=== PATIENT | female | born 1985 | race Caucasian/White ===

== ENCOUNTER 2016-10-29 01:00 | Emergency (ER) | payer OTHER ==
[2016-10-29] MEDS ORDERED: CLEOCIN 150 MG CAPSULE PO ONE (01:16)
[2016-10-29] MEDS ORDERED: Tylenol #3 Tablet PO ONE (01:16)
--- NOTE | 2016-10-29 01:24 | ERPHSYRPT ---
- History of Present Illness Time Seen by Provider: 10/29/16 01:16 Source: patient Exam Limitations: clinical condition Physician History: PATIENT COMPLAINS OF LEFT UPPER TOOTHACHE FOR 2 DAYS. DENIES FEVER, DIFFICULTY SWALLOWING OR BREATHING Timing/Duration: gradual onset Severity: moderate ENT Location: dental Prearrival Treatment: no prearrival treatment Modifying Factors: Improves With: nothing Allergies/Adverse Reactions: cefaclor [From Ceclor] Allergy (Verified 10/29/16 01:17) erythromycin base [Erythromycin Base] Allergy (Verified 10/29/16 01:17) Penicillins Allergy (Verified 10/29/16 01:17) Home Medications: Lisinopril 10 mg [Zestril 10 MG] 10 mg PO DAILY 08/07/13 [History] Insulin Glargine,Hum.rec.anlog [Basaglar Kwikpen U-100] 60 unit SQ DAILY [History] Insulin Glulisine [Apidra] 38 unit SQ TID 10/29/16 [History] Hx Tetanus, Diphtheria Vaccination/Date Given: No Hx Influenza Vaccination/Date Given: No Hx Pneumococcal Vaccination/Date Given: No - Review of Systems Constitutional: No Fever, No Chills Eyes: No Symptoms Ears, Nose, & Throat: No Symptoms, Loose Teeth Respiratory: No Symptoms, No Cough, No Dyspnea Cardiac: No Symptoms, No Chest Pain, No Edema, No Syncope Abdominal/Gastrointestinal: No Abdominal Pain, No Nausea, No Vomiting, No Diarrhea Genitourinary Symptoms: No Dysuria Musculoskeletal: No Back Pain, No Neck Pain Skin: No Rash Neurological: No Dizziness, No Focal Weakness, No Sensory Changes Psychological: No Symptoms Endocrine: No Symptoms All Other Systems: Reviewed and Negative - Past Medical History Pertinent Past Medical History: Yes Cardiac History: Hypertension Endocrine Medical History: Diabetes Type I Musculoskeletal History: No Pertinent History GI Medical History: No Pertinent History History: No Pertinent History Psycho-Social History: No Pertinent History Female Reproductive Disorders: No Pertinent History - Past Surgical History Past Surgical History: No - Social History Smoking Status: Never smoker Exposure to second hand smoke: Yes Drug Use: none - Female History Hx Now: No - Nursing Vital Signs Nursing Vital Signs: Initial Vital Signs Temperature 98.0 F Temperature Source Oral Pulse Rate 115 Respiratory Rate 18 Blood Pressure [Right Arm] 154/79 Pain Intensity 8 - Physical Exam General Appearance: no apparent distress Eye Exam: bilateral eye: normal inspection, PERRL Ear Exam: bilateral ear: auricle normal, canal normal, TM normal Nasal Exam: normal inspection Throat Exam: dental tenderness (LEFT UPPER 2ND MOLAR WITH CARIES) Neck Exam: normal inspection, non-tender Cardiovascular/Respiratory Exam: chest non-tender, normal breath sounds Neurologic Exam: alert, oriented x 3 SpO2: 96 Oxygen Delivery: Room Air Ordered Tests: Medication Summary Discontinued Medications Generic Name Dose Route Start Last Admin Trade Name Beverley PRN Reason Stop Dose Admin Clindamycin HCl 300 mg 10/29/16 01:16 Cleocin 150 Mg Capsule PO 10/29/16 01:17 STAT ONE - Progress Progress Note: 10/29/16 01:20 PATIENT GIVEN CLINDAMYCIN 300MG ORALLY, SENT HOME TYLENOL #3, 2 TABLETS HOME Counseled pt/family regarding: diagnosis, need for follow-up - Departure Time of Disposition: 01:35 Departure Disposition: Home Clinical Impression: DENTAL CARIES Condition: Stable Critical Care Time: No Additional Instructions: ANTIBIOTIC CLINDAMYCIN 300MG EVERY 8 HOURS FOR 10 DAYS. MOTRIN 600MG EVERY 6 HOURS FOR MILD TO MODERATE PAIN. TYLENOL#3 EVERY 4 HOURS FOR SEVERE PAIN. CONSULT A DENTIST FOR FOLLOWUP TOMORROW. Prescriptions: Codeine Phosphate/APAP #3 [Tylenol #3 Tablet] 1 tab PO Q4HPRN PRN #12 tablet PRN Reason: Pain Ibuprofen 600 mg PO Q6HPRN PRN #20 tablet PRN Reason: Pain Clindamycin HCl 300 mg PO TID #30 capsule
[2016-10-29] MEDS ORDERED: CLEOCIN 150 MG CAPSULE ONE (01:25)
[2016-10-29] MEDS ORDERED: Tylenol #3 Tablet ONE (01:25)
[2016-10-29 01:44] VITALS: BP 160/86; PULSE 110; O2SAT 94
== END 2016-10-29 01:43 | disposition home or self-care (01) ==
LOC: ED 01:00
DX: K02.9 Dental caries, unspecified (principal)
CPT/HCPCS: 99283; A9270-GY

== ENCOUNTER 2017-08-18 03:03 | Emergency (ER) | payer OTHER, SELFPAY ==
[2017-08-18 03:16] VITALS: BP 187/104; PULSE 104; O2SAT 97
[2017-08-18] MEDS ORDERED: KEFLEX 500 MG PO ONE (03:27)
[2017-08-18] MEDS ORDERED: NORCO 5/325 MG PO ONE ×2 (03:27→03:28)
--- NOTE | 2017-08-18 03:27 | ERPHSYRPT ---
- History of Present Illness Time Seen by Provider: 08/18/17 03:19 Source: patient Exam Limitations: no limitations Patient Subjective Stated Complaint: toothache x2-3 days; pain in left lower back; also c/o n/v this pm d/t pain Triage Nursing Assessment: pt a&o x3; skin p, w, & d; ambulated to room per self ; no other distress at this time. Physician History: FOR THE PAST 3 DAYS PT HAS HAD A LEFT LOWER TOOTHACHE, LEFT EARACHE AND LEFT SIDED HEADACHE; TONIGHT CHILLS AND VOMITING X2 WITHOUT BLOOD. Allergies/Adverse Reactions: clindamycin Allergy (Mild, Verified 08/18/17 03:27) erythromycin base [Erythromycin Base] Allergy (Verified 08/18/17 03:16) Penicillins Allergy (Verified 08/18/17 03:16) Home Medications: Lisinopril 10 mg [Zestril 10 MG] 20 mg PO DAILY 08/07/13 [History] Insulin Glargine,Hum.rec.anlog [Basaglar Kwikpen U-100] 60 unit SQ DAILY [History] Insulin Glulisine [Apidra] 38 unit SQ TID 10/29/16 [History] Hx Tetanus, Diphtheria Vaccination/Date Given: No Hx Influenza Vaccination/Date Given: No Hx Pneumococcal Vaccination/Date Given: No Immunizations Up to Date: No - Review of Systems Constitutional: Chills Ears, Nose, & Throat: Ear Pain, Mouth Pain Abdominal/Gastrointestinal: Vomiting Neurological: Headache All Other Systems: Reviewed and Negative - Past Medical History Pertinent Past Medical History: Yes Cardiac History: Hypertension Endocrine Medical History: Diabetes Type I Musculoskeletal History: No Pertinent History GI Medical History: No Pertinent History History: No Pertinent History Psycho-Social History: No Pertinent History Female Reproductive Disorders: No Pertinent History - Past Surgical History Past Surgical History: No - Social History Smoking Status: Never smoker Exposure to second hand smoke: Yes Drug Use: none Patient Lives Alone: No - Female History Hx Last Menstrual Period: currently Hx Now: No - Nursing Vital Signs Nursing Vital Signs: Initial Vital Signs Temperature 98.4 F 08/18/17 03:11 Pulse Rate 104 H 08/18/17 03:11 Respiratory Rate 16 08/18/17 03:11 Blood Pressure 187/104 08/18/17 03:11 O2 Sat by Pulse Oximetry 97 08/18/17 03:11 Pain Scale Pain Intensity 8 - Physical Exam General Appearance: alert Eye Exam: PERRL/EOMI Ears, Nose, Throat Exam: pharynx normal, moist mucous membranes, other (CERUMEN OCCLUSION OF RIGHT EAR; A CAPPED LEFT MANDIBULAR MOLAR HAS SURROUNDING ERYTHEMATOUS, MILDLY EDEMATOUS AND TENDER GUM.) Neck Exam: normal inspection Respiratory Exam: lungs clear Cardiovascular Exam: normal heart sounds Gastrointestinal/Abdomen Exam: soft, normal bowel sounds Back Exam: normal range of motion Extremity Exam: normal inspection, No pedal edema Neurologic Exam: alert, cooperative Skin Exam: warm, dry SpO2 Interpretation: normal SpO2: 97 Oxygen Delivery: Room Air - Course Nursing assessment & vital signs reviewed: Yes Ordered Tests: Medication Summary Generic Name Dose Route Start Last Admin Trade Name Freq PRN Reason Stop Dose Admin Hydrocodone Bitart/Acetaminophen 2 tab 08/18/17 03:28 [place] 5/325 Mg PO 08/18/17 03:29 SENT HOME W/ PATIENT ONE Discontinued Medications Generic Name Dose Route Start Last Admin Trade Name Freq PRN Reason Stop Dose Admin Hydrocodone Bitart/Acetaminophen 2 tab 08/18/17 03:27 [place] 5/325 Mg PO 08/18/17 03:28 STAT ONE Cephalexin HCl 500 mg 08/18/17 03:27 Keflex 500 Mg PO 08/18/17 03:28 STAT ONE - Departure Time of Disposition: 03:34 Departure Disposition: Home Clinical Impression: TOOTH ABSCESS, VOMITING Condition: Stable Critical Care Time: No Referrals: LEI LONGO [Primary Care Provider] - Instructions: Tooth Abscess (DC), Nausea and Vomiting, Adult (DC) Additional Instructions: FOLLOW UP WITH PRIVATE DOCTOR TOMORROW. FOLLOW UP WITH DENTIST TOMORROW. Prescriptions: Promethazine HCl 25 mg [Phenergan 25 mg] 25 mg PO Q4H PRN PRN #14 tablet PRN Reason: Nausea/Vomiting Naproxen [Naprosyn] 500 mg PO [id number] PRN #20 tablet PRN Reason: Pain Cephalexin Monohydrate [Keflex] 500 mg PO TID #30 capsule
[2017-08-18] MEDS ORDERED: KEFLEX 500 MG ONE (03:30)
[2017-08-18] MEDS ORDERED: NORCO 5/325 MG ONE (03:31)
== END 2017-08-18 03:48 | disposition home or self-care (01) ==
LOC: ED 03:03
DX: K04.7 Periapical abscess without sinus (principal); K08.89 Other specified disorders of teeth and supporting structures; E10.9 Type 1 diabetes mellitus without complications; H61.21 Impacted cerumen, right ear; Z79.4 Long term (current) use of insulin; Z79.899 Other long term (current) drug therapy; R11.10 Vomiting, unspecified
CPT/HCPCS: 99282; 99283; A9270-GY

== ENCOUNTER 2017-10-11 05:19 | Emergency (ER) | payer OTHER ==
[2017-10-11] MEDS ORDERED: Sodium Chloride 0.9% 1000 ML 1,000 ML IV STA ×2 (06:23→09:44)
[2017-10-11] MEDS ORDERED: Zofran 4 MG/2 ML VIAL IV ONE (06:23)
[2017-10-11] MEDS ORDERED: TRANDATE 20 MG/5 ML SYRINGE IV ONE ×2 (06:26→06:34)
[2017-10-11 06:31] LABS: Hematocrit 36.9 % (35-47); Hemoglobin 11.8 gm/dl (12.0-16.0); Mean Cell Volume 80.2 fl (78-100); Mean Platelet Volume 9.2 fl (6-9.5); Platelet Count 253 K/mm3 (150-450); Red Cell Distribution Width 15.5 % (11.5-14.0); White Blood Count 10.8 K/mm3 (4.0-10.5)
[2017-10-11] MEDS ORDERED: Sodium Chloride 0.9% 1000 ML 1,000 ML ONE ×2 (06:34→09:47)
[2017-10-11] MEDS ORDERED: Zofran 4 MG/2 ML VIAL ONE (06:34)
[2017-10-11 06:36] LABS: Mean Corpuscular Hemoglobin 25.6 pg (26-32)
[2017-10-11 06:44] LABS: ALBUMIN 4.1 g/dL (3.5-5.0); ALKALINE PHOSPHATASE 95 U/L (38-126); AMYLASE 57 U/L (30-110); ANION GAP 13.6 MEQ/L (5-15); BLOOD UREA NITROGEN 15 mg/dL (7-17); CHLORIDE 98 mmol/L (98-107); Calcium 9.5 mg/dL (8.4-10.2); Carbon Dioxide 28 mmol/L (22-30); Creatinine 1 0.54 mg/dL (0.52-1.04); Glucose 274 mg/dL (74-106); LIPASE 71 U/L (23-300); Potassium 3.8 mmol/L (3.5-5.1); SGOT/AST 25 U/L (14-36); SGPT/ALT 44 U/L (0-35); SODIUM 136 mmol/L (137-145); Total Protein 7.3 g/dL (6.3-8.2)
[2017-10-11 07:23] LABS: Appearance CLOUDY (CLEAR); Glucose 500 mg/dL (NEGATIVE); Ketones LARGE (NEGATIVE); Leukocyte Esterase 1+ (NEGATIVE); Nitrite NEGATIVE (NEGATIVE); Protein,Urine Dip 30 (Negative)
[2017-10-11 07:24] LABS: Bilirubin NEGATIVE (NEGATIVE); Blood 250 Ery/ul (0-5); Urobilinogen NORMAL mg/dL (0-1)
--- NOTE | 2017-10-11 07:29 | ERPHSYRPT ---
- History of Present Illness Exam Limitations: clinical condition Patient Subjective Stated Complaint: pt states she has been having left side abdominal pain, n/v, and severe menstrual cramping amd bleeding x2 days. Triage Nursing Assessment: pt a& x3; skin p, w, & d; ambulated to room per self ; no other distress noted; family at bedside. Timing/Duration: day(s) Activities at Onset: none Quality: cramping Abdominal Pain Onset Location: LLQ Pain Radiation: no radiation Severity of Pain-Max: moderate Severity of Pain-Current: moderate Modifying Factors: Improves With: vomiting Associated Symptoms: nausea, vomiting Previous symptoms: same symptoms as today Hx Tetanus, Diphtheria Vaccination/Date Given: No Hx Influenza Vaccination/Date Given: No Hx Pneumococcal Vaccination/Date Given: No Immunizations Up to Date: No <PETER WICK - Last Filed: 10/11/17 07:31> <FRANCK GIRON - Last Filed: 10/11/17 11:44> - History of Present Illness Time Seen by Provider: 10/11/17 05:50 Physician History: PATIENT WITH A HISTORY OF TYPE 2 DIABETES, HYPERTENSION COMPLAINS OF FREQUENT EPISODES OF EMESIS X 20 OVER 2 DAYS. HAS ASSOCIATED DIARRHEA AND LEFT SIDED ABDOMINAL PAIN. DENIES FEVER, OR URINARY SYMPTOMS. (PETER WICK) Allergies/Adverse Reactions: clindamycin Allergy (Mild, Verified 10/11/17 05:36) Blisters erythromycin base [Erythromycin Base] Allergy (Verified 10/11/17 05:36) Blisters Penicillins Allergy (Verified 10/11/17 05:36) Hives Home Medications: Lisinopril 10 mg [Zestril 10 MG] 20 mg PO DAILY 08/07/13 [History] Insulin Glargine,Hum.rec.anlog [Basaglar Kwikpen U-100] 60 unit SQ DAILY [History] Insulin Glulisine [Apidra] 38 unit SQ TID 10/29/16 [History] Levonorgestrel-Ethin Estradiol [Vienva-28 Tablet] 1 tab PO DAILY 10/11/17 [ History] - Review of Systems Constitutional: No Fever, No Chills Eyes: No Symptoms Ears, Nose, & Throat: No Symptoms Respiratory: No Cough, No Dyspnea Cardiac: No Symptoms, No Chest Pain, No Edema, No Syncope Abdominal/Gastrointestinal: Abdominal Pain, Nausea, Vomiting, No Diarrhea Genitourinary Symptoms: No Symptoms, No Dysuria Musculoskeletal: No Symptoms, No Back Pain, No Neck Pain Skin: No Rash Neurological: No Dizziness, No Focal Weakness, No Sensory Changes Psychological: No Symptoms Endocrine: No Symptoms All Other Systems: Reviewed and Negative <PETER WICK Filed: 10/11/17 07:31> - Past Medical History Pertinent Past Medical History: Yes Cardiac History: Hypertension Endocrine Medical History: Diabetes Type I Musculoskeletal History: No Pertinent History GI Medical History: No Pertinent History History: No Pertinent History Psycho-Social History: No Pertinent History Female Reproductive Disorders: No Pertinent History - Past Surgical History Past Surgical History: No - Social History Smoking Status: Never smoker Exposure to second hand smoke: Yes Drug Use: none Patient Lives Alone: No - Female History Hx Last Menstrual Period: currently Hx Now: Yes <PETER WICK Filed: 10/11/17 07:31> - Physical Exam General Appearance: no apparent distress, alert Eye Exam: PERRL/EOMI, eyes nml inspection Ears, Nose, Throat Exam: normal ENT inspection, pharynx normal, moist mucous membranes Neck Exam: normal inspection, non-tender, supple, full range of motion Respiratory Exam: normal breath sounds, lungs clear, No respiratory distress Cardiovascular Exam: regular rate/rhythm, normal heart sounds, tachycardia Gastrointestinal/Abdomen Exam: soft, normal bowel sounds, tenderness (LEFT LOWER QUAD TENDERNESS), No mass Back Exam: normal inspection, normal range of motion, No CVA tenderness, No vertebral tenderness Extremity Exam: normal inspection, normal range of motion, pelvis stable Neurologic Exam: alert, oriented x 3, cooperative, normal mood/affect, nml cerebellar function, sensation nml, No motor deficits Skin Exam: normal color, warm, dry SpO2 Interpretation: normal SpO2: 98 Oxygen Delivery: Room Air <PETER WICK Filed: 10/11/17 07:31> - Nursing Vital Signs Nursing Vital Signs: Initial Vital Signs Temperature 98 F 10/11/17 05:28 Pulse Rate 112 H 10/11/17 05:28 Respiratory Rate 18 10/11/17 05:28 Blood Pressure 182/90 10/11/17 05:28 O2 Sat by Pulse Oximetry 97 10/11/17 05:28 Pain Scale Pain Intensity 0 - Course Nursing assessment & vital signs reviewed: Yes <FRANCK GIRON - Last Filed: 10/11/17 11:44> Ordered Tests: Active Orders 24 hr Category Date Time Status Stripper Machine Operator STAT Care 10/11/17 06:28 Active Clean Catch Urine Specimen STAT Care 10/11/17 06:23 Active IV Insertion STAT Care 10/11/17 06:23 Active ABDOMEN AND PELVIS W CONTRAST [CT] Stat Exams 10/11/17 07:48 Taken AMYLASE Stat Lab 10/11/17 06:20 Completed CBC W DIFF Stat Lab 10/11/17 06:20 Completed CMP Stat Lab 10/11/17 06:20 Completed CULTURE,URINE Stat Lab 10/11/17 05:45 Received HCG QUALITATIVE,SERUM Stat Lab 10/11/17 07:46 Completed LIPASE Stat Lab 10/11/17 06:20 Completed Manual Differential NC Stat Lab 10/11/17 06:20 Completed UA W/ MICROSCOPIC Stat Lab 10/11/17 05:45 Completed Transfer Order Routine Transfer 10/11/17 Ordered Medication Summary Discontinued Medications Generic Name Dose Route Start Last Admin Trade Name Freq PRN Reason Stop Dose Admin Sodium Chloride 1,000 mls @ 999 mls/hr 10/11/17 06:23 10/11/17 06:37 Sodium Chloride 0.9% 1000 Ml IV 10/11/17 07:23 999 mls/hr .Q1H1M STA Administration Sodium Chloride Confirm 10/11/17 06:34 Sodium Chloride 0.9% 1000 Ml Administered 10/11/17 06:35 Dose 1,000 mls @ ud .ROUTE .STK-MED ONE Sodium Chloride 1,000 mls @ 999 mls/hr 10/11/17 09:44 10/11/17 09:48 Sodium Chloride 0.9% 1000 Ml IV 10/11/17 10:44 999 mls/hr .Q1H1M STA Administration Sodium Chloride Confirm 10/11/17 09:47 Sodium Chloride 0.9% 1000 Ml Administered 10/11/17 09:48 Dose 1,000 mls @ ud .ROUTE .STK-MED ONE Labetalol HCl 20 mg 10/11/17 06:26 10/11/17 06:37 Trandate 20 Mg/5 Ml Syringe IV 10/11/17 06:27 20 mg STAT ONE Administration Labetalol HCl Confirm 10/11/17 06:34 Trandate 20 Mg/5 Ml Syringe Administered 10/11/17 06:35 Dose 20 mg IV .STK-MED ONE Morphine Sulfate 4 mg 10/11/17 09:44 10/11/17 09:48 Morphine Sulfate 4 Mg Inj IV 10/11/17 09:45 4 mg STAT ONE Administration Morphine Sulfate Confirm 10/11/17 09:47 Morphine Sulfate 4 Mg Inj Administered 10/11/17 09:48 Dose 4 mg .ROUTE .STK-MED ONE Ondansetron HCl 4 mg 10/11/17 06:23 10/11/17 06:37 Zofran 4 Mg/2 Ml Vial IV 10/11/17 06:24 4 mg STAT ONE Administration Ondansetron HCl Confirm 10/11/17 06:34 Zofran 4 Mg/2 Ml Vial Administered 10/11/17 06:35 Dose 4 mg .ROUTE .STK-MED ONE Lab/Rad Data: Laboratory Result Diagrams 10/11/17 06:20 10/11/17 06:20 Laboratory Results 10/11/17 10/11/17 10/11/17 Range/Units 07:46 06:20 06:20 WBC 10.8 H (4.0-10.5) K/mm3 RBC 4.60 (4.1-5.4) M/mm3 Hgb 11.8 L (12.0-16.0) gm/dl Hct 36.9 (35-47) % MCV 80.2 (78-100) fl MCH 25.6 L (26-32) pg MCHC 32.0 (32-36) g/dl RDW 15.5 H (11.5-14.0) % Plt Count 253 (150-450) K/mm3 MPV 9.2 (6-9.5) fl Absolute Granulocytes 9.80 H (1.4-6.9) Segmented Neutrophils 93 H (36.0-66.0) % Lymphocytes (Manual) 5 L (24-44) % Monocytes (Manual) 2 (0.0-12.0) % Hypochromia 1+ Platelet Estimate NORMAL (NORMAL) RBC Morphology ABNORMAL Poikilocytosis 1+ Anisocytosis 1+ Sodium 136 L (137-145) mmol/L Potassium 3.8 (3.5-5.1) mmol/L Chloride 98 (98-107) mmol/L Carbon Dioxide 28 (22-30) mmol/L Anion Gap 13.6 (5-15) MEQ/L BUN 15 (7-17) mg/dL Creatinine 0.54 (0.52-1.04) mg/dL Estimated GFR > 60.0 ML/MIN Glucose 274 H (74-106) mg/dL Calcium 9.5 (8.4-10.2) mg/dL Total Bilirubin 0.80 (0.2-1.3) mg/dL AST 25 (14-36) U/L ALT 44 H (0-35) U/L Alkaline Phosphatase 95 (38-126) U/L Serum Total Protein 7.3 (6.3-8.2) g/dL Albumin 4.1 (3.5-5.0) g/dL Amylase 57 (30-110) U/L Lipase 71 (23-300) U/L Serum , Qual NEGATIVE (Negative) Ur Collection Type Urine Color (YELLOW) Urine Appearance (CLEAR) Urine pH (5-6) Ur Specific [place] (1.005-1.025) Urine Protein (Negative) Urine Ketones (NEGATIVE) Urine Blood (0-5) Eddie/ul Urine Nitrite (NEGATIVE) Urine Bilirubin (NEGATIVE) Urine Urobilinogen (0-1) mg/dL Ur Leukocyte Esterase (NEGATIVE) Urine Microscopic RBC (0-2) /HPF Urine Microscopic WBC (0-5) /HPF Ur Epithelial Cells (FEW) /HPF Urine Bacteria (NEGATIVE) /HPF Urine Culture Reflexed (NO) Urine Glucose (NEGATIVE) mg/dL Specimen Received 10/11/17 Range/Units 05:45 WBC (4.0-10.5) K/mm3 RBC (4.1-5.4) M/mm3 Hgb (12.0-16.0) gm/dl Hct (35-47) % MCV (78-100) fl MCH (26-32) pg MCHC (32-36) g/dl RDW (11.5-14.0) % Plt Count (150-450) K/mm3 MPV (6-9.5) fl Absolute Granulocytes (1.4-6.9) Segmented Neutrophils (36.0-66.0) % Lymphocytes (Manual) (24-44) % Monocytes (Manual) (0.0-12.0) % Hypochromia Platelet Estimate (NORMAL) RBC Morphology Poikilocytosis Anisocytosis Sodium (137-145) mmol/L Potassium (3.5-5.1) mmol/L Chloride (98-107) mmol/L Carbon Dioxide (22-30) mmol/L Anion Gap (5-15) MEQ/L BUN (7-17) mg/dL Creatinine (0.52-1.04) mg/dL Estimated GFR ML/MIN Glucose (74-106) mg/dL Calcium (8.4-10.2) mg/dL Total Bilirubin (0.2-1.3) mg/dL AST (14-36) U/L ALT (0-35) U/L Alkaline Phosphatase (38-126) U/L Serum Total Protein (6.3-8.2) g/dL Albumin (3.5-5.0) g/dL Amylase (30-110) U/L Lipase (23-300) U/L Serum , Qual (Negative) Ur Collection Type CCMS Urine Color RED (YELLOW) Urine Appearance CLOUDY (CLEAR) Urine pH 6.0 (5-6) Ur Specific [place] 1.020 (1.005-1.025) Urine Protein 30 (Negative) Urine Ketones LARGE (NEGATIVE) Urine Blood 250 (0-5) Eddie/ul Urine Nitrite NEGATIVE (NEGATIVE) Urine Bilirubin NEGATIVE (NEGATIVE) Urine Urobilinogen NORMAL (0-1) mg/dL Ur Leukocyte Esterase 1+ (NEGATIVE) Urine Microscopic RBC >100 (0-2) /HPF Urine Microscopic WBC 15-25 (0-5) /HPF Ur Epithelial Cells RARE (FEW) /HPF Urine Bacteria MODERATE (NEGATIVE) /HPF Urine Culture Reflexed YES (NO) Urine Glucose 500 (NEGATIVE) mg/dL Specimen Received 0545 10/11/17 <PETER WICK - Last Filed: 10/11/17 07:31> - Progress Progress: improved <FRANCK GIRON - Last Filed: 10/11/17 11:44> - Progress Progress Note: 10/11/17 07:28 IV NORMAL SALINE 500ML/HR, ZOFRAN 4MG, LABETOLOL 20MG IV (PETER WICK) 10/11/17 09:32 This is a 31-year-old white female with history of high blood pressure, diabetes initially seen by Dr. Wick with complaint of left lower quadrant abdominal pain and vomiting over 20 times over 2 days she had associated diarrhea as well no fever or urinary symptoms. Patient was noted to have a markedly elevated blood pressure patient was given 1 L of normal saline and labetalol as well as anti-emetics by Dr. Wick. Patient states she still has some abdominal pain lower abdomen it is noted that the patient is chronically on tramadol at home which she receives from Dr. Mathias. She also is on Zofran which she states she just got and she says she has this at home. Past medical history includes diabetes, high blood pressure. Past surgical history patient denies. Physical examination well-developed obese white female she does not appear to be in acute distress Head is atraumatic normocephalic. Eyes PERRLA EOMI fundi are unremarkable. Ears TMs berg intact bilaterally. Nose clear. Throat clear. Neck supple. Lungs clear. Heart regular rate and rhythm without murmur. Abdomen minimal tenderness left lower quadrant positive bowel sounds negative masses negative rebound. Extremities full range of motion pulses equal and symmetrical 2 over 4 Labs patient's white count is 10.8 hemoglobin 11.8 hematocrit 36.9 platelets 253. Chemistry sodium 136 potassium 3.8 chloride 98 bicarbonate 28 BUN 15 creatinine 0.54 glucose 274. HCG is negative. Urine 15-25 white cells per high-power field negative nitrites positive ketones greater than 100 red cells per high-power field (patient states she is on her period CT of the abdomen and pelvis with contrast Findings suggestive for jejunitis which could be due to an infectious or inflammatory or etiology. There is also a right lower lobe pulmonary nodule consider follow-up CT of the chest in 6-12 months per flexion or society guidelines. Impression 1 left lower quadrant abdominal pain 2. Vomiting. 3 jejunitis infection versus inflammatory etiology. Plan Will go ahead and give patient morphine 4 mg IV. I have reviewed the patient's inspect report she is on tramadol 50 mg which is prescribed by Dr. Mathias she received 60 tablets on October 01, 2017. she had initially told me she was not on any pain medication at home, but once I reminded her of inspect report, she told me that she thought this for leg pain. I have told the patient that if she is to get any further narcotic analgesia as she needs to get these from her family doctor. Patient is already on Zofran Will have patient continue Zofran. Will give patient another liter of normal saline she appears to be markedly improved from a arrival. Patient will be advised to follow-up with Dr. Mathias. She is return for acute distress or for severe symptoms. 10/11/17 09:43 (FRANCK GIRON) <PETER WICK - Last Filed: 10/11/17 07:31> - Departure Time of Disposition: 11:39 Departure Disposition: Home Critical Care Time: No <FRANCK GIRON - Last Filed: 10/11/17 11:44> - Departure Clinical Impression: Abdominal pain, left lower quadrant, Jejunitis Nausea and vomiting Qualifiers: Vomiting type: unspecified Vomiting Intractability: non-intractable Qualified Code(s): R11.2 - Nausea with vomiting, unspecified UTI (urinary tract infection) Qualifiers: Urinary tract infection type: site unspecified Hematuria presence: with hematuria Qualified Code(s): N39.0 - Urinary tract infection, site not specified Hypertension Qualifiers: Hypertension type: unspecified Qualified Code(s): I10 - Essential (primary) hypertension Condition: Fair Referrals: LEI MATHIAS [Primary Care Provider] - Additional Instructions: Return home. Plenty of fluids, clear fluids only 24-48 hours if abdominal pain. Macrobid one orally twice a day for 10 days. Zofran and tramadol as prescribed by your family doctor. Follow-up with your family doctor You were noted to have a right lower lobe pulmonary nodule on CT scan follow-up CT was recommended in 6-12 months by radiologist follow-up with your family doctor concerning this. You were also noted to have findings suspicious for Jejunits which could be either infectious or inflammatory in etiology. Follow-up with your family doctor concerning this. Return for acute distress or for severe symptoms. Prescriptions: Nitrofurantoin Macro 100 mg [Macrobid 100MG Capsule] 100 mg PO BID #20 capsule
[2017-10-11 07:32] LABS: Bacteria MODERATE /HPF (NEGATIVE); Epithelial Cells RARE /HPF (FEW); RBC >100 /HPF (0-2); WBC 15-25 /HPF (0-5)
[2017-10-11 08:39] VITALS: O2SAT 95
[2017-10-11 08:48] LABS: ANISOCYTOSIS 1+; Hypochromia 1+; Lymphocytes 5 % (24-44); Monocyte 2 % (0.0-12.0); Neutrophils 93 % (36.0-66.0); Platelet Estimate NORMAL (NORMAL); Poikilocytosis 1+; Total Cells Counted 100
[2017-10-11] MEDS ORDERED: MORPHINE SULFATE 4 MG INJ IV ONE (09:44)
[2017-10-11] MEDS ORDERED: MORPHINE SULFATE 4 MG INJ ONE (09:47)
[2017-10-11 11:12] VITALS: BP 106/48; PULSE 87
--- NOTE | 2017-10-11 20:05 | XRAY ---
Indication: Left lower quadrant pain, nausea, and vomiting 2 days. Multiple contiguous axial images obtained through the abdomen and pelvis using 80 cc of Isovue-370 contrast only. Comparison: None 1.6 cm indeterminate noncalcified nodule seen in the right posterior gutter. No infiltrate or effusion. Heart is not enlarged. Noncontrasted stomach and bowel loops appear nonobstructed. A few mild fluid distended small bowel loops in the left mid abdomen with mild wall thickening favoring enteritis. Normal appendix. No free fluid/air. Remaining liver, gallbladder, pancreas, spleen, adrenal glands, kidneys, ureters, bladder, uterus, and aorta appear unremarkable. No pathologic retroperitoneal lymphadenopathy. Osseous structures intact. Impression: 1. Mild fluid distended small bowel loops with wall thickening favoring enteritis. 2. Indeterminate 1.6 cm right lung base noncalcified pulmonary nodule. Comparison studies would be of benefit if performed elsewhere. If not, recommend CT chest to establish baseline with follow-up per Fleischner guidelines. Comment: Preliminary interpretation was made by [facility]. No discrepancy. CTDI 23.68
== END 2017-10-11 11:48 | disposition home or self-care (01) ==
LOC: ED 05:19
DX: R10.32 Left lower quadrant pain (principal); R11.2 Nausea with vomiting, unspecified; K52.9 Noninfective gastroenteritis and colitis, unspecified; N39.0 Urinary tract infection, site not specified; I10 Essential (primary) hypertension; Z79.899 Other long term (current) drug therapy; E10.9 Type 1 diabetes mellitus without complications; Z79.4 Long term (current) use of insulin
CPT/HCPCS: 36000; 36415; 74177; 80053; 81000; 82150; 83690; 84703; 85025; 87086; 93041; 96360; 96374; 96375; 99284; J2270; J2405

== ENCOUNTER 2018-01-10 07:07 | Emergency (ER) | payer OTHER ==
[2018-01-10] MEDS ORDERED: MORPHINE SULFATE 4 MG INJ IV ONE (07:32)
[2018-01-10] MEDS ORDERED: Zofran 4 MG/2 ML VIAL IV ONE (07:32)
[2018-01-10] MEDS ORDERED: Sodium Chloride 0.9% 1000 ML 1,000 ML IV STA ×2 (07:32→07:59)
[2018-01-10] MEDS ORDERED: Sodium Chloride 0.9% 1000 ML 1,000 ML ONE ×2 (07:39→09:08)
[2018-01-10] MEDS ORDERED: MORPHINE SULFATE 4 MG INJ ONE (07:39)
[2018-01-10] MEDS ORDERED: Zofran 4 MG/2 ML VIAL ONE (07:39)
--- NOTE | 2018-01-10 07:40 | ERPHSYRPT ---
- History of Present Illness Time Seen by Provider: 01/10/18 07:29 Historian: patient Exam Limitations: no limitations Patient Subjective Stated Complaint: vomiting and abd pain for 10 days now, was seen at [facility] for this and had us and ct scan, pt states no eating or drinking well, pain to left side and epigastric area. vomited x4 today Triage Nursing Assessment: pt walked in,skin w/d/p. resp easy skin w/d/p. abd soft with bs, tender to palpate Physician History: This is a 32-year-old white female with history of diabetes type 1 high blood pressure. She arrives with complaint of left lower quadrant abdominal pain vomiting symptoms for 10 days. She states she was seen at [facility] 2 last week. She states she had an ultrasound also had CT of the abdomen. She states she has not been able to see see her family doctor she states that she called the family doctor's office and she was unable to take an appointment. She has no other complaints. Patient is chronically on tramadol patient filled #60 50 mg tablets on January 07, 2018. Past medical history includes diabetes type 1, high blood pressure. Past surgical history negative Social history patient denies tobacco alcohol or illicit drug use. Timing/Duration: day(s) (10 days) Activities at Onset: none Quality: cramping Abdominal Pain Onset Location: LLQ Pain Radiation: no radiation Severity of Pain-Current: moderate Modifying Factors: Improves With: analgesics (patient is on tramadol), vomiting. Worsens With: antacids, breathing, coughing, defecating, eating, exercise, lying down, movement, palpation, rest, urinating, position Associated Symptoms: nausea, vomiting, No back, No chest pain, No diaphoresis, No diarrhea, No fever/chills, No fatigue, No headache, No heartburn, No loss of appetite, No neck pain, No rash, No shortness of breath, No syncope Previous symptoms: same symptoms as today Allergies/Adverse Reactions: clindamycin Allergy (Mild, Verified 01/10/18 07:15) Blisters erythromycin base [Erythromycin Base] Allergy (Verified 01/10/18 07:15) Blisters Penicillins Allergy (Verified 01/10/18 07:15) Hives Home Medications: Lisinopril 10 mg [Zestril 10 MG] 20 mg PO DAILY 08/07/13 [History] Insulin Glargine,Hum.rec.anlog [Basaglar Kwikpen U-100] 60 unit SQ DAILY [History] Insulin Glulisine [Apidra] 38 unit SQ TID 10/29/16 [History] Tramadol HCl 50 mg [Ultram 50 mg] 50 mg BID 01/10/18 [History] Hx Tetanus, Diphtheria Vaccination/Date Given: Yes Hx Influenza Vaccination/Date Given: No Hx Pneumococcal Vaccination/Date Given: No Immunizations Up to Date: Yes - Review of Systems Constitutional: No Fever, No Chills Eyes: No Symptoms Ears, Nose, & Throat: No Symptoms Respiratory: No Cough, No Dyspnea Cardiac: No Chest Pain, No Edema, No Syncope Abdominal/Gastrointestinal: Abdominal Pain, Nausea, Vomiting, No Diarrhea, No Constipation, No Hematemesis, No Hematochezia, No Melena, No Dysphagia, No Appetite Changes Genitourinary Symptoms: Dysuria, No Frequency, No Hematuria, No Hesitancy, No Incontinence, No Urgency, No Urinary Retention, No Flank Pain, No Menorrhagia, No , No Vaginal Bleeding, No Vaginal Discharge, No Vaginal Itching Musculoskeletal: No Back Pain, No Neck Pain Skin: No Rash Neurological: No Dizziness, No Focal Weakness, No Sensory Changes Psychological: No Symptoms Endocrine: No Symptoms All Other Systems: Reviewed and Negative - Past Medical History Pertinent Past Medical History: Yes Neurological History: No Pertinent History ENT History: No Pertinent History Cardiac History: Hypertension Endocrine Medical History: Diabetes Type I Musculoskeletal History: No Pertinent History GI Medical History: No Pertinent History History: No Pertinent History Psycho-Social History: No Pertinent History Female Reproductive Disorders: No Pertinent History - Past Surgical History Past Surgical History: No - Social History Smoking Status: Never smoker Exposure to second hand smoke: Yes Drug Use: none Patient Lives Alone: No - Female History Hx Last Menstrual Period: october Hx Now: No - Nursing Vital Signs Nursing Vital Signs: Initial Vital Signs Pulse Rate 96 H 01/10/18 07:15 Respiratory Rate 16 01/10/18 07:15 Blood Pressure 160/90 01/10/18 07:15 O2 Sat by Pulse Oximetry 98 01/10/18 07:15 Pain Scale Pain Intensity 3 - Physical Exam General Appearance: no apparent distress, obese Eye Exam: PERRL/EOMI, eyes nml inspection Ears, Nose, Throat Exam: normal ENT inspection, pharynx normal, moist mucous membranes Neck Exam: normal inspection, non-tender, supple, full range of motion Respiratory Exam: normal breath sounds, lungs clear, No respiratory distress Cardiovascular Exam: regular rate/rhythm, normal heart sounds, normal peripheral pulses, capillary refill <2 sec, No tachycardia, No bradycardia Gastrointestinal/Abdomen Exam: soft, tenderness (llq tenderness), No mass Back Exam: normal inspection, normal range of motion, No CVA tenderness, No vertebral tenderness Extremity Exam: normal inspection, normal range of motion, pelvis stable Neurologic Exam: alert, oriented x 3, cooperative, gaming associate II-XII nml as tested, normal mood/affect, nml cerebellar function, sensation nml, No motor deficits Skin Exam: normal color, warm, dry SpO2 Interpretation: normal (98%) SpO2: 98 Oxygen Delivery: Room Air - Course Nursing assessment & vital signs reviewed: Yes Ordered Tests: Active Orders 24 hr Category Date Time Status Accucheck STAT Care 01/10/18 10:25 Active IV Insertion STAT Care 01/10/18 07:32 Active AMYLASE Stat Lab 01/10/18 07:45 Completed CBC W DIFF Stat Lab 01/10/18 07:45 Completed CMP Stat Lab 01/10/18 07:45 Completed HCG QUALITATIVE,SERUM Stat Lab 01/10/18 07:45 Completed LIPASE Stat Lab 01/10/18 07:45 Completed UA W/ MICROSCOPIC Stat Lab 01/10/18 07:45 Completed Medication Summary Discontinued Medications Generic Name Dose Route Start Last Admin Trade Name Beverley PRN Reason Stop Dose Admin Sodium Chloride 1,000 mls @ 999 mls/hr 01/10/18 07:32 01/10/18 07:42 Sodium Chloride 0.9% 1000 Ml IV 01/10/18 08:32 999 mls/hr .Q1H1M STA Administration Sodium Chloride Confirm 01/10/18 07:39 Sodium Chloride 0.9% 1000 Ml Administered 01/10/18 07:40 Dose 1,000 mls @ ud .ROUTE .STK-MED ONE Sodium Chloride 1,000 mls @ 999 mls/hr 01/10/18 07:59 01/10/18 09:10 Sodium Chloride 0.9% 1000 Ml IV 01/10/18 08:59 999 mls/hr .Q1H1M STA Administration Sodium Chloride Confirm 01/10/18 09:08 Sodium Chloride 0.9% 1000 Ml Administered 01/10/18 09:09 Dose 1,000 mls @ ud .ROUTE .STK-MED ONE Morphine Sulfate 4 mg 01/10/18 07:32 01/10/18 07:42 Morphine Sulfate 4 Mg Inj IV 01/10/18 07:33 4 mg STAT ONE Administration Morphine Sulfate Confirm 01/10/18 07:39 Morphine Sulfate 4 Mg Inj Administered 01/10/18 07:40 Dose 4 mg .ROUTE .STK-MED ONE Ondansetron HCl 4 mg 01/10/18 07:32 01/10/18 07:42 Zofran 4 Mg/2 Ml Vial IV 01/10/18 07:33 4 mg STAT ONE Administration Ondansetron HCl Confirm 01/10/18 07:39 Zofran 4 Mg/2 Ml Vial Administered 01/10/18 07:40 Dose 4 mg .ROUTE .STK-MED ONE Lab/Rad Data: Laboratory Result Diagrams 01/10/18 07:45 01/10/18 07:45 Laboratory Results 01/10/18 01/10/18 01/10/18 Range/Units 07:45 07:45 07:45 WBC (4.0-10.5) K/mm3 RBC (4.1-5.4) M/mm3 Hgb (12.0-16.0) gm/dl Hct (35-47) % MCV (78-100) fl MCH (26-32) pg MCHC (32-36) g/dl RDW (11.5-14.0) % Plt Count (150-450) K/mm3 MPV (6-9.5) fl Gran % (36.0-66.0) % Eos # (Auto) (0-0.5) Absolute Lymphs (auto) (1.0-4.6) Absolute Monos (auto) (0.0-1.3) Lymphocytes % (24.0-44.0) % Monocytes % (0.0-12.0) % Eosinophils % (0.00-5.0) % Basophils % (0.0-0.4) % Absolute Granulocytes (1.4-6.9) Basophils # (0-0.4) Sodium 140 (137-145) mmol/L Potassium 4.1 (3.5-5.1) mmol/L Chloride 101 (98-107) mmol/L Carbon Dioxide 28 (22-30) mmol/L Anion Gap 15.0 (5-15) MEQ/L BUN 7 (7-17) mg/dL Creatinine 0.58 (0.52-1.04) mg/dL Estimated GFR > 60.0 ML/MIN Glucose 237 H (74-106) mg/dL Calcium 9.5 (8.4-10.2) mg/dL Total Bilirubin 0.70 (0.2-1.3) mg/dL AST 24 (14-36) U/L ALT 40 H (0-35) U/L Alkaline Phosphatase 93 (38-126) U/L Serum Total Protein 7.4 (6.3-8.2) g/dL Albumin 4.3 (3.5-5.0) g/dL Amylase 41 (30-110) U/L Lipase 51 (23-300) U/L Serum , Qual NEGATIVE (Negative) Ur Collection Type CCMS Urine Color YELLOW (YELLOW) Urine Appearance CLEAR (CLEAR) Urine pH 7.0 (5-6) Ur Specific [place] 1.010 (1.005-1.025) Urine Protein NEGATIVE (Negative) Urine Ketones MODERATE (NEGATIVE) Urine Blood 50 (0-5) Eddie/ul Urine Nitrite NEGATIVE (NEGATIVE) Urine Bilirubin NEGATIVE (NEGATIVE) Urine Urobilinogen NORMAL (0-1) mg/dL Ur Leukocyte Esterase NEGATIVE (NEGATIVE) Urine Microscopic RBC 0-2 (0-2) /HPF Ur Epithelial Cells RARE (FEW) /HPF Urine Culture Reflexed NO (NO) Urine Glucose 50 (NEGATIVE) mg/dL Specimen Received 72901/10/18 01/10/18 Range/Units 07:45 WBC 6.9 (4.0-10.5) K/mm3 RBC 4.85 (4.1-5.4) M/mm3 Hgb 11.0 L (12.0-16.0) gm/dl Hct 36.7 (35-47) % MCV 75.7 L (78-100) fl MCH 22.6 L (26-32) pg MCHC 30.0 L (32-36) g/dl RDW 17.3 H (11.5-14.0) % Plt Count 276 (150-450) K/mm3 MPV 9.1 (6-9.5) fl Gran % 83.8 H (36.0-66.0) % Eos # (Auto) 0.06 (0-0.5) Absolute Lymphs (auto) 0.69 L (1.0-4.6) Absolute Monos (auto) 0.35 (0.0-1.3) Lymphocytes % 10.1 L (24.0-44.0) % Monocytes % 5.1 (0.0-12.0) % Eosinophils % 0.9 (0.00-5.0) % Basophils % 0.1 (0.0-0.4) % Absolute Granulocytes 5.75 (1.4-6.9) Basophils # 0.01 (0-0.4) Sodium (137-145) mmol/L Potassium (3.5-5.1) mmol/L Chloride (98-107) mmol/L Carbon Dioxide (22-30) mmol/L Anion Gap (5-15) MEQ/L BUN (7-17) mg/dL Creatinine (0.52-1.04) mg/dL Estimated GFR ML/MIN Glucose (74-106) mg/dL Calcium (8.4-10.2) mg/dL Total Bilirubin (0.2-1.3) mg/dL AST (14-36) U/L ALT (0-35) U/L Alkaline Phosphatase (38-126) U/L Serum Total Protein (6.3-8.2) g/dL Albumin (3.5-5.0) g/dL Amylase (30-110) U/L Lipase (23-300) U/L Serum , Qual (Negative) Ur Collection Type Urine Color (YELLOW) Urine Appearance (CLEAR) Urine pH (5-6) Ur Specific [place] (1.005-1.025) Urine Protein (Negative) Urine Ketones (NEGATIVE) Urine Blood (0-5) Eddie/ul Urine Nitrite (NEGATIVE) Urine Bilirubin (NEGATIVE) Urine Urobilinogen (0-1) mg/dL Ur Leukocyte Esterase (NEGATIVE) Urine Microscopic RBC (0-2) /HPF Ur Epithelial Cells (FEW) /HPF Urine Culture Reflexed (NO) Urine Glucose (NEGATIVE) mg/dL Specimen Received - Progress Progress: improved Progress Note: 01/10/18 07:47 32-year-old morbidly obese white female with history of diabetes type 1, high blood pressure arrives with complaint of left lower quadrant abdominal pain symptoms for 10 days. She has been seen at [facility] secondary to the same she states 2 times last week patient had CT of the abdomen and pelvis with contrast which has been reviewed performed on January 04, 2018 which showed no evidence of acute inflammatory process in the abdomen or pelvis.. There was a 1 cm nonspecific pulmonary nodule in the right lower lobe which has been seen on prior examinations. She also had an ultrasound of the pelvis on January 05, 2018 which was an unremarkable pelvic ultrasound. Patient is chronically on Ultram she received #60 of these which was filled January 07, 2018. Patient states she has not been able to see her family doctor and she had called for an appointment and was unable to get into see him. Patient appears to be stable at this time she has some mild left lower quadrant abdominal tenderness. Blood sugar is around 220 which is good for this patient she is receiving 1 L of normal saline. Will go ahead and check CBC CMP amylase lipase UA. Patient is given morphine 4 mg and Zofran 4 mg IV. Will await labs. 01/10/18 08:16 Patient's urinalysis with moderate amount of ketones 50 glucose. Patient's chemistry shows anion gap of 15 and a glucose of 237 otherwise essentially normal. CBC essentially normal. Will give patient an additional 1 L of normal saline for a total of 2 and plan on rechecking Accu-Chek. 01/10/18 10:28 Patient feeling better after 2 L of normal saline. Accu-Chek 221 which is where she normally runs. Patient does state that she was vomiting her Phenergan earlier Will write for Zofran for the patient. Patient is advised to continue taking her insulin as prescribed. Patient will need to follow-up with her family doctor. Patient already has a prescription for tramadol from her family doctor. Patient did indicate that she wants a list of local physicians. - Departure Time of Disposition: 10:30 Departure Disposition: Home Clinical Impression: Abdominal pain, left lower quadrant Nausea and vomiting Qualifiers: Vomiting type: unspecified Vomiting Intractability: non-intractable Qualified Code(s): R11.2 - Nausea with vomiting, unspecified Condition: Fair Critical Care Time: No Referrals: LEI LONGO [Primary Care Provider] - Instructions: Vomiting -- Adult Additional Instructions: . Return home. Plenty of fluids clear fluids only 24-48 hours if nausea vomiting or abdominal pain. Zofran as prescribed. Take your insulins as prescribed by your family doctor be sure to monitor your blood sugars. Follow-up with your family doctor or list. Return for acute distress or for severe symptoms. Prescriptions: Ondansetron ODT 4 MG [Zofran Odt 4 mg] 4 mg PO Q6H PRN PRN #10 tab.rapdis PRN Reason: nausea and vomiting
[2018-01-10 07:54] LABS: Appearance CLEAR (CLEAR)
[2018-01-10 07:55] LABS: Bilirubin NEGATIVE (NEGATIVE); Blood 50 Ery/ul (0-5); Glucose 50 mg/dL (NEGATIVE); Ketones MODERATE (NEGATIVE); Leukocyte Esterase NEGATIVE (NEGATIVE); Nitrite NEGATIVE (NEGATIVE); Protein,Urine Dip NEGATIVE (Negative); Urobilinogen NORMAL mg/dL (0-1)
[2018-01-10 07:57] LABS: BASOPHIL % 0.1 % (0.0-0.4); Basophil (Absolute #) 0.01 (0-0.4); Eosinophil % 0.9 % (0.00-5.0); Eosinophil (Absolute #) 0.06 (0-0.5); Granulocyte Absolute (ANC) 5.75 (1.4-6.9); Granulocytes % 83.8 % (36.0-66.0); Hematocrit 36.7 % (35-47); Lymphocyte (Absolute #) 0.69 (1.0-4.6); Lymphocytes % 10.1 % (24.0-44.0); Mean Cell Volume 75.7 fl (78-100); Mean Platelet Volume 9.1 fl (6-9.5); Monocyte (Absolute #) 0.35 (0.0-1.3); Monocytes % 5.1 % (0.0-12.0); Platelet Count 276 K/mm3 (150-450); Red Blood Count 4.85 M/mm3 (4.1-5.4); Red Cell Distribution Width 17.3 % (11.5-14.0); White Blood Count 6.9 K/mm3 (4.0-10.5)
[2018-01-10 08:02] LABS: Mean Corpuscular Hemoglobin 22.6 pg (26-32)
[2018-01-10 08:11] LABS: Epithelial Cells RARE /HPF (FEW); RBC 0-2 /HPF (0-2)
[2018-01-10 08:14] LABS: ALBUMIN 4.3 g/dL (3.5-5.0); ALKALINE PHOSPHATASE 93 U/L (38-126); AMYLASE 41 U/L (30-110); BLOOD UREA NITROGEN 7 mg/dL (7-17); CHLORIDE 101 mmol/L (98-107); Calcium 9.5 mg/dL (8.4-10.2); Carbon Dioxide 28 mmol/L (22-30); Creatinine 1 0.58 mg/dL (0.52-1.04); Glucose 237 mg/dL (74-106); LIPASE 51 U/L (23-300); Potassium 4.1 mmol/L (3.5-5.1); SGOT/AST 24 U/L (14-36); SGPT/ALT 40 U/L (0-35); SODIUM 140 mmol/L (137-145); Total Protein 7.4 g/dL (6.3-8.2)
[2018-01-10 10:42] VITALS: BP 164/90; PULSE 78; O2SAT 97
== END 2018-01-10 10:42 | disposition home or self-care (01) ==
LOC: ED 07:07
DX: R10.32 Left lower quadrant pain (principal); R11.2 Nausea with vomiting, unspecified; Z79.899 Other long term (current) drug therapy; E10.9 Type 1 diabetes mellitus without complications; Z79.4 Long term (current) use of insulin
CPT/HCPCS: 36000; 36415; 80053; 81000; 82150; 82962; 83690; 84703; 85025; 96360; 96361; 96374; 96375; 99284; J2270; J2405

== ENCOUNTER 2018-06-13 21:43 | Emergency (ER) | payer OTHER ==
[2018-06-13] MEDS ORDERED: MORPHINE SULFATE 4 MG INJ IV ONE (22:11)
[2018-06-13] MEDS ORDERED: Zofran 4 MG/2 ML VIAL IV ONE (22:11)
[2018-06-13] MEDS ORDERED: Sodium Chloride 0.9% 1000 ML 1,000 ML IV SCH (22:15)
--- NOTE | 2018-06-13 22:23 | ERPHSYRPT ---
- History of Present Illness Time Seen by Provider: 06/13/18 22:00 Historian: patient Exam Limitations: clinical condition Patient Subjective Stated Complaint: pt reports vomiting for 2 days with left sided abd pain. reports approx 10 episodes of vomiting today. Triage Nursing Assessment: pt is aox3, pupils perrl, afebrile, radial pulses strong and equal bilat, pt resps easy and non labored, pt abd is soft and tender with palpation to the left upper and lower quadrants, bowel sounds present and normoactive x4. pt skin pink warm dry. Physician History: PATIENT WITH A HISTORY OF TYPE 1 DIABETES, HYPERTENSION, MORBID OBESITY COMPLAINS OF LEFT SIDED ABDOMINAL PAIN X 2 DAYS ASSOCIATED WITH FREQUENT EPISODES OF EMESIS X 10 EPISODES. TAKES ULTRAM FOR PAIN TWICE DAILY FOR 1 YEAR. DENIES FEVER, URINARY SYMPTOMS. PATIENT HAS HAD MULTIPLE EMERGENCY ROOM VISITS ALONG WITH ABDOMINAL CT SCANS FOR EVALUATION OF RECURRENT ABDOMINAL PAIN. Timing/Duration: yesterday Activities at Onset: none Quality: cramping, sharpness Abdominal Pain Onset Location: LUQ, LLQ Pain Radiation: no radiation Severity of Pain-Max: moderate Severity of Pain-Current: moderate Modifying Factors: Improves With: nothing Associated Symptoms: nausea, vomiting Previous symptoms: same symptoms as today Allergies/Adverse Reactions: clindamycin Allergy (Mild, Verified 06/13/18 22:04) Blisters erythromycin base [Erythromycin Base] Allergy (Verified 06/13/18 22:04) Blisters Penicillins Allergy (Verified 06/13/18 22:04) Hives Home Medications: Lisinopril 10 mg [Zestril 10 MG] 20 mg PO DAILY 08/07/13 [History] Insulin Glargine,Hum.rec.anlog [Basaglar Kwikpen U-100] 60 unit SQ DAILY [History] Insulin Glulisine [Apidra] 38 unit SQ TID 10/29/16 [History] Tramadol HCl 50 mg [Ultram 50 mg] 50 mg BID 01/10/18 [History] Atorvastatin Calcium [Lipitor 20MG Tablet] 20 mg PO DAILY 06/13/18 [History] Polyethylene Glycol 3350 17 g PO DAILY 06/13/18 [History] Hx Tetanus, Diphtheria Vaccination/Date Given: Yes Hx Influenza Vaccination/Date Given: No Hx Pneumococcal Vaccination/Date Given: No Immunizations Up to Date: Yes - Review of Systems Constitutional: No Fever, No Chills Eyes: No Symptoms Ears, Nose, & Throat: No Symptoms Respiratory: No Symptoms, No Cough, No Dyspnea Cardiac: No Symptoms, No Chest Pain, No Edema, No Syncope Abdominal/Gastrointestinal: Abdominal Pain, Nausea, Vomiting, No Diarrhea Genitourinary Symptoms: No Symptoms, No Dysuria Musculoskeletal: No Symptoms, No Back Pain, No Neck Pain Skin: No Symptoms, No Rash Neurological: No Dizziness, No Focal Weakness, No Sensory Changes Psychological: No Symptoms Endocrine: No Symptoms All Other Systems: Reviewed and Negative - Past Medical History Pertinent Past Medical History: Yes Neurological History: No Pertinent History ENT History: No Pertinent History Cardiac History: Hypertension Endocrine Medical History: Diabetes Type I Musculoskeletal History: No Pertinent History GI Medical History: No Pertinent History History: No Pertinent History Psycho-Social History: No Pertinent History Female Reproductive Disorders: No Pertinent History - Past Surgical History Past Surgical History: No - Social History Smoking Status: Never smoker Exposure to second hand smoke: Yes Drug Use: none Patient Lives Alone: No - Female History Hx Last Menstrual Period: 05/11/18 Hx Now: (unk) - Nursing Vital Signs Nursing Vital Signs: Initial Vital Signs Temperature 98.3 F 06/13/18 21:45 Pulse Rate 108 H 06/13/18 21:45 Respiratory Rate 20 06/13/18 21:45 Blood Pressure 177/100 06/13/18 21:45 O2 Sat by Pulse Oximetry 98 06/13/18 21:45 Pain Scale Pain Intensity 7 - Physical Exam General Appearance: no apparent distress, alert Eye Exam: PERRL/EOMI, eyes nml inspection Ears, Nose, Throat Exam: normal ENT inspection, pharynx normal, moist mucous membranes Neck Exam: normal inspection, non-tender, supple, full range of motion Respiratory Exam: normal breath sounds, lungs clear, No respiratory distress Cardiovascular Exam: regular rate/rhythm, normal heart sounds Gastrointestinal/Abdomen Exam: soft, normal bowel sounds, tenderness (LEFT SIDED TENDERNESS LUQ, LLQ TENDERNESS, NO GUARDING OR REBOUND TENDERNESS), No mass Back Exam: normal inspection, normal range of motion, No CVA tenderness, No vertebral tenderness Extremity Exam: normal inspection, normal range of motion, pelvis stable Neurologic Exam: alert, oriented x 3, cooperative, normal mood/affect, nml cerebellar function, sensation nml, No motor deficits Skin Exam: normal color, warm, dry SpO2: 98 - CT Exams Abdomen/Pelvis CT Interpretation: Tele-radiologist Report (NO RENAL OR URETERAL STONES, NO RENAL MASSES OR PERINEPHRIC STRANDING, NO BOWEL OBSTRUCTION, WALL THICKENING OR EVIDENCE OF COLITIS OR DIVERTICULITIS) Ordered Tests: Active Orders 24 hr Category Date Time Status Clean Catch Urine Specimen STAT Care 06/13/18 22:11 Active IV Insertion STAT Care 06/13/18 22:11 Active ABDOMEN AND PELVIS W CONTRAST [CT] Stat Exams 06/13/18 22:11 Taken AMYLASE Stat Lab 06/13/18 20:00 Completed BMP Stat Lab 06/13/18 20:00 Completed CBC W DIFF Stat Lab 06/13/18 20:00 Completed HCG,QUALITATIVE URINE Stat Lab 06/13/18 22:30 Completed LIPASE Stat Lab 06/13/18 20:00 Completed UA W/RFX UR CULTURE Stat Lab 06/13/18 22:30 Completed Medication Summary Generic Name Dose Route Start Last Admin Trade Name Freq PRN Reason Stop Dose Admin Sodium Chloride 1,000 mls @ 250 mls/hr 06/13/18 22:15 06/13/18 22:29 Sodium Chloride 0.9% 1000 Ml IV 07/13/18 22:14 250 mls/hr .Q4H SHELIA Administration Discontinued Medications Generic Name Dose Route Start Last Admin Trade Name Freq PRN Reason Stop Dose Admin Morphine Sulfate 4 mg 06/13/18 22:11 06/13/18 22:29 Morphine Sulfate 4 Mg Inj IV 06/13/18 22:12 4 mg STAT ONE Administration Morphine Sulfate Confirm 06/13/18 22:24 Morphine Sulfate 4 Mg Inj Administered 06/13/18 22:25 Dose 4 mg .ROUTE .STK-MED ONE Ondansetron HCl 4 mg 06/13/18 22:11 06/13/18 22:30 Zofran 4 Mg/2 Ml Vial IV 06/13/18 22:12 4 mg STAT ONE Administration Ondansetron HCl Confirm 06/13/18 22:24 Zofran 4 Mg/2 Ml Vial Administered 06/13/18 22:25 Dose 4 mg .ROUTE .STK-MED ONE Lab/Rad Data: Laboratory Result Diagrams 06/13/18 20:00 06/13/18 20:00 Laboratory Results 06/13/18 06/13/18 06/13/18 Range/Units 22:30 22:30 20:00 WBC (4.0-10.5) K/mm3 RBC (4.1-5.4) M/mm3 Hgb (12.0-16.0) gm/dl Hct (35-47) % MCV (78-100) fl MCH (26-32) pg MCHC (32-36) g/dl RDW (11.5-14.0) % Plt Count (150-450) K/mm3 MPV (6-9.5) fl Gran % (36.0-66.0) % Eos # (Auto) (0-0.5) Absolute Lymphs (auto) (1.0-4.6) Absolute Monos (auto) (0.0-1.3) Lymphocytes % (24.0-44.0) % Monocytes % (0.0-12.0) % Eosinophils % (0.00-5.0) % Basophils % (0.0-0.4) % Absolute Granulocytes (1.4-6.9) Basophils # (0-0.4) Sodium 137 (137-145) mmol/L Potassium 4.3 (3.5-5.1) mmol/L Chloride 98 (98-107) mmol/L Carbon Dioxide 28 (22-30) mmol/L Anion Gap 14.9 (5-15) MEQ/L BUN 15 (7-17) mg/dL Creatinine 0.65 (0.52-1.04) mg/dL Estimated GFR > 60.0 ML/MIN Glucose 229 H (74-106) mg/dL Calcium 9.7 (8.4-10.2) mg/dL Amylase 48 (30-110) U/L Lipase 36 (23-300) U/L Urine Color YELLOW (YELLOW) Urine Appearance CLEAR (CLEAR) Urine pH 6.0 (5-6) Ur Specific [place] 1.017 (1.005-1.025) Urine Protein NEGATIVE (Negative) Urine Ketones MODERATE (NEGATIVE) Urine Blood NEGATIVE (0-5) Eddie/ul Urine Nitrite NEGATIVE (NEGATIVE) Urine Bilirubin NEGATIVE (NEGATIVE) Urine Urobilinogen NEGATIVE (0-1) mg/dL Ur Leukocyte Esterase NEGATIVE (NEGATIVE) Urine WBC (Auto) NONE (0-5) /HPF Urine RBC (Auto) NONE (0-2) /HPF U Epithel Cells (Auto) NONE (FEW) /HPF Urine Bacteria (Auto) NONE (NEGATIVE) /HPF Urine Mucus (Auto) SLIGHT (NEGATIVE) /HPF Urine Culture Reflexed NO (NO) Urine Glucose >=500 (NEGATIVE) mg/dL Urine HCG, Qual NEGATIVE (Negative) 06/13/18 Range/Units 20:00 WBC 10.1 (4.0-10.5) K/mm3 RBC 5.17 (4.1-5.4) M/mm3 Hgb 11.8 L (12.0-16.0) gm/dl Hct 39.0 (35-47) % MCV 75.4 L (78-100) fl MCH 22.8 L (26-32) pg MCHC 30.3 L (32-36) g/dl RDW 18.8 H (11.5-14.0) % Plt Count 265 (150-450) K/mm3 MPV 9.6 H (6-9.5) fl Gran % 91.0 H (36.0-66.0) % Eos # (Auto) 0.02 (0-0.5) Absolute Lymphs (auto) 0.57 L (1.0-4.6) Absolute Monos (auto) 0.31 (0.0-1.3) Lymphocytes % 5.6 L (24.0-44.0) % Monocytes % 3.1 (0.0-12.0) % Eosinophils % 0.2 (0.00-5.0) % Basophils % 0.1 (0.0-0.4) % Absolute Granulocytes 9.22 H (1.4-6.9) Basophils # 0.01 (0-0.4) Sodium (137-145) mmol/L Potassium (3.5-5.1) mmol/L Chloride (98-107) mmol/L Carbon Dioxide (22-30) mmol/L Anion Gap (5-15) MEQ/L BUN (7-17) mg/dL Creatinine (0.52-1.04) mg/dL Estimated GFR ML/MIN Glucose (74-106) mg/dL Calcium (8.4-10.2) mg/dL Amylase (30-110) U/L Lipase (23-300) U/L Urine Color (YELLOW) Urine Appearance (CLEAR) Urine pH (5-6) Ur Specific [place] (1.005-1.025) Urine Protein (Negative) Urine Ketones (NEGATIVE) Urine Blood (0-5) Eddie/ul Urine Nitrite (NEGATIVE) Urine Bilirubin (NEGATIVE) Urine Urobilinogen (0-1) mg/dL Ur Leukocyte Esterase (NEGATIVE) Urine WBC (Auto) (0-5) /HPF Urine RBC (Auto) (0-2) /HPF U Epithel Cells (Auto) (FEW) /HPF Urine Bacteria (Auto) (NEGATIVE) /HPF Urine Mucus (Auto) (NEGATIVE) /HPF Urine Culture Reflexed (NO) Urine Glucose (NEGATIVE) mg/dL Urine HCG, Qual (Negative) - Progress Progress: pain not gone completely Progress Note: 06/13/18 22:23 IV NORMAL SALINE 250ML/HR, ZOFRAN 4MG, MORPHINE 4MG IV Counseled pt/family regarding: lab results, diagnosis, need for follow-up, rad results - Departure Time of Disposition: 00:25 Departure Disposition: Home Clinical Impression: CHRONIC ABDOMINAL PAIN Condition: Stable Critical Care Time: No Referrals: LEI LONGO [Primary Care Provider] - Additional Instructions: ZOFRAN 4MG EVERY 6 HOURS FOR NAUSEA NEEDED. FOLLOWUP WITH YOUR PRIMARY CARE PROVIDER FOR EVALUATION. RETURN TO EMERGENCY FOR PERSISTENT PAIN. Prescriptions: Ondansetron ODT 4 MG [Zofran Odt 4 mg] 4 mg PO Q6H PRN PRN #10 tab.rapdis PRN Reason: Nausea
[2018-06-13 22:24] LABS: BASOPHIL % 0.1 % (0.0-0.4); Basophil (Absolute #) 0.01 (0-0.4); Eosinophil % 0.2 % (0.00-5.0); Eosinophil (Absolute #) 0.02 (0-0.5); Granulocyte Absolute (ANC) 9.22 (1.4-6.9); Hemoglobin 11.8 gm/dl (12.0-16.0); Lymphocyte (Absolute #) 0.57 (1.0-4.6); Lymphocytes % 5.6 % (24.0-44.0); Mean Cell Volume 75.4 fl (78-100); Mean Corpuscular Hemoglobin 22.8 pg (26-32); Mean Corpuscular Hgb Concent. 30.3 g/dl (32-36); Mean Platelet Volume 9.6 fl (6-9.5); Monocyte (Absolute #) 0.31 (0.0-1.3); Monocytes % 3.1 % (0.0-12.0); Platelet Count 265 K/mm3 (150-450); Red Blood Count 5.17 M/mm3 (4.1-5.4); Red Cell Distribution Width 18.8 % (11.5-14.0); White Blood Count 10.1 K/mm3 (4.0-10.5)
[2018-06-13] MEDS ORDERED: Zofran 4 MG/2 ML VIAL ONE (22:24)
[2018-06-13] MEDS ORDERED: Sodium Chloride 0.9% 1000 ML 1,000 ML ONE (22:24)
[2018-06-13] MEDS ORDERED: MORPHINE SULFATE 4 MG INJ ONE (22:24)
[2018-06-13 22:28] LABS: AMYLASE 48 U/L (30-110); ANION GAP 14.9 MEQ/L (5-15); BLOOD UREA NITROGEN 15 mg/dL (7-17); CHLORIDE 98 mmol/L (98-107); Calcium 9.7 mg/dL (8.4-10.2); Carbon Dioxide 28 mmol/L (22-30); Creatinine 1 0.65 mg/dL (0.52-1.04); Glucose 229 mg/dL (74-106); LIPASE 36 U/L (23-300); Potassium 4.3 mmol/L (3.5-5.1); SODIUM 137 mmol/L (137-145)
[2018-06-13 22:41] LABS: Appearance CLEAR (CLEAR); Bilirubin NEGATIVE (NEGATIVE); Blood NEGATIVE Ery/ul (0-5); Glucose >=500 mg/dL (NEGATIVE); Ketones MODERATE (NEGATIVE); Leukocyte Esterase NEGATIVE (NEGATIVE); Mucus SLIGHT /HPF (NEGATIVE); Nitrite NEGATIVE (NEGATIVE); Protein,Urine Dip NEGATIVE (Negative); Specific Gravity 1.017 (1.005-1.025); Urobilinogen NEGATIVE mg/dL (0-1)
[2018-06-14] MEDS ORDERED: ZOFRAN ODT 4 MG PO ONE (00:18)
[2018-06-14] MEDS ORDERED: ZOFRAN ODT 4 MG ONE (00:21)
[2018-06-14 00:29] VITALS: BP 165/90; PULSE 80; O2SAT 97
[2018-06-14 01:18] LABS: Slide Review 1 YES
--- NOTE | 2018-06-14 08:50 | XRAY ---
Indication: Abdomen pain and emesis 2 days. Multiple contiguous axial images obtained through the abdomen and pelvis using 80 cc Isovue 370 contrast only. Comparison: October 11, 2017. Lung bases demonstrates stable right posterior gutter calcified granuloma. No infiltrate or effusion. Heart is not enlarged. Noncontrasted stomach and bowel loops appear nonobstructed. Normal appendix. No free fluid/air. Spleen is now enlarged measuring 15 cm in greatest axial dimension. Remaining liver, gallbladder, pancreas, spleen, adrenal glands, kidneys, ureters, bladder, and uterus appear unremarkable. Again minimal aortoiliac calcifications. No AAA or pathologic retroperitoneal lymphadenopathy. Osseous structures intact. No ventral or inguinal hernias. Impression: 1. New splenomegaly. 2. Stable right lung base calcified granuloma. 3. Remaining CT abdomen/pelvis with contrast exam is negative Comment: Preliminary interpretation was made by [facility] who reports no splenomegaly. CT DI 23.68
== END 2018-06-14 00:27 | disposition home or self-care (01) ==
LOC: ED 21:43
DX: R10.12 Left upper quadrant pain (principal); G89.29 Other chronic pain; I10 Essential (primary) hypertension; E10.9 Type 1 diabetes mellitus without complications; Z79.4 Long term (current) use of insulin; Z79.899 Other long term (current) drug therapy; E66.01 Morbid (severe) obesity due to excess calories; R10.32 Left lower quadrant pain
CPT/HCPCS: 36000; 36415; 74177; 80048; 81001; 82150; 83690; 84703; 85025; 96360; 96361; 96374; 96375; 99284; J2270; J2405; Q0162

== ENCOUNTER 2019-02-27 15:55 | Emergency (ER) | payer OTHER ==
[2019-02-27] MEDS ORDERED: Sodium Chloride 0.9% 1000 ML 1,000 ML IV STA ×2 (16:14→17:09)
[2019-02-27] MEDS ORDERED: BENADRYL 50 MG/ML IV ONE (16:14)
[2019-02-27] MEDS ORDERED: MORPHINE SULFATE 4 MG INJ IV ONE (16:14)
[2019-02-27] MEDS ORDERED: Pepcid 20 MG VIAL IV ONE ×2 (16:14→16:43)
--- NOTE | 2019-02-27 16:22 | ERPHSYRPT ---
- History of Present Illness Time Seen by Provider: 02/27/19 16:10 Historian: patient Exam Limitations: no limitations Patient Subjective Stated Complaint: C/o of pain in left flank that radiates around to abdomen and to bladder region, pain began Thursday night, N&V since Thursday Triage Nursing Assessment: Pt walked into the ER, skin appears flushed, afebrile , tachycardic, hypertensive, pulses normal, N&V, rates pain 8/10 in LUQ and medial lower abdomen Physician History: Patient has had pain in her left flank/LUQ for the past two days. Patient was seen at [facility] in [place], [place] and evaluated with labs but nothing found so know urine or imaging was performed. Patient was given anti- nausea medication and discharged home. She has not been re-evaluated since. Timing/Duration: day(s) (2) Activities at Onset: none Quality: aching, cramping, stabbing Abdominal Pain Onset Location: flank (left) Pain Radiation: LUQ, LLQ Severity of Pain-Max: severe Severity of Pain-Current: severe Modifying Factors: Improves With: nothing Associated Symptoms: No back, No chest pain, No diaphoresis, No diarrhea, No fever/chills, No fatigue, No headache, No heartburn, No loss of appetite, No nausea, No neck pain, No rash, No shortness of breath, No syncope, No vomiting, No weakness Previous symptoms: same symptoms as today (diagnosed with celiac disease in the past), recently seen ([facility] emergency department on 02/25/2019 with no cause found) Allergies/Adverse Reactions: clindamycin Allergy (Mild, Verified 02/27/19 16:15) Blisters erythromycin base [Erythromycin Base] Allergy (Verified 02/27/19 16:15) Blisters Penicillins Allergy (Verified 02/27/19 16:15) Hives Home Medications: Lisinopril 10 mg [Zestril 10 MG] 20 mg PO DAILY 08/07/13 [History] Insulin Glargine,Hum.rec.anlog [Basaglar Kwikpen U-100] 60 unit SQ DAILY [History] Insulin Glulisine [Apidra] 38 unit SQ TID 10/29/16 [History] Atorvastatin Calcium [Lipitor 20MG Tablet] 20 mg PO DAILY 06/13/18 [History] Hx Tetanus, Diphtheria Vaccination/Date Given: Yes Hx Influenza Vaccination/Date Given: No Hx Pneumococcal Vaccination/Date Given: No - Review of Systems Constitutional: No Fever, No Chills, No Lethargy Eyes: No Eye Pain, No Vision Changes Ears, Nose, & Throat: No Epistaxis, No Mouth Swelling, No Painful Swallowing Respiratory: No Cough, No Dyspnea, No Dyspnea on Exertion (ROBINS) Cardiac: No Chest Pain, No Edema, No Palpitations, No Syncope Abdominal/Gastrointestinal: Abdominal Pain, No Nausea, No Vomiting, No Hematemesis, No Hematochezia, No Melena Genitourinary Symptoms: Flank Pain, No Dysuria, No Frequency, No Hematuria, No Urinary Retention, No Vaginal Discharge Musculoskeletal: No Back Pain, No Neck Pain Skin: No Pruritis, No Rash Neurological: No Focal Weakness, No Lethargy, No Parasthesia, No Tremors Psychological: No Emotional Lability Endocrine: No Polydipsia, No Excessive Sweating Hematologic/Lymphatic: No Easy Bleeding, No Easy Bruising All Other Systems: Reviewed and Negative - Past Medical History Pertinent Past Medical History: Yes Neurological History: No Pertinent History ENT History: No Pertinent History Cardiac History: Hypertension Endocrine Medical History: Diabetes Type I Musculoskeletal History: No Pertinent History GI Medical History: No Pertinent History, Other History: No Pertinent History Psycho-Social History: No Pertinent History Female Reproductive Disorders: No Pertinent History Other Medical History: ciliac - Past Surgical History Past Surgical History: No - Social History Smoking Status: Never smoker Exposure to second hand smoke: Yes Drug Use: none Patient Lives Alone: No - Female History Hx Last Menstrual Period: 02/23/2019 Hx Now: No - Nursing Vital Signs Nursing Vital Signs: Initial Vital Signs Temperature 97.4 F 02/27/19 16:03 Pulse Rate 105 H 02/27/19 16:03 Blood Pressure 148/86 02/27/19 16:03 O2 Sat by Pulse Oximetry 96 02/27/19 16:03 Pain Scale Pain Intensity 8 - Physical Exam General Appearance: no apparent distress Eye Exam: PERRL/EOMI, eyes nml inspection, No scleral icterus Ears, Nose, Throat Exam: normal ENT inspection, TMs normal, pharynx normal, moist mucous membranes, No dry mucous membranes, No TM abnormal (R), No pharyngeal erythema Neck Exam: normal inspection, non-tender, supple, full range of motion, No meningismus, No Brudzinski, No limited range of motion, No lymphadenopathy Respiratory Exam: normal breath sounds, lungs clear, respiratory distress, airway intact, No chest tenderness, No diminished breath sounds, No accessory muscle use, No prolonged expirations, No crackles/rales, No rhonchi, No wheezing , No stridor Cardiovascular Exam: regular rate/rhythm, normal heart sounds, normal peripheral pulses, capillary refill <2 sec Gastrointestinal/Abdomen Exam: soft, normal bowel sounds, No tenderness, No distention, No mass, No guarding, No ecchymosis Back Exam: normal inspection, No CVA tenderness, No vertebral tenderness Extremity Exam: normal inspection, normal range of motion, pelvis stable, No calf tenderness, No billy's sign, No inflammation, No pedal edema, No swelling Neurologic Exam: alert, oriented x 3, cooperative, 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, normal mood/affect, sensation nml, No motor deficits, No uncooperative Skin Exam: normal color, warm, dry, No rash, No jaundice, No cyanosis SpO2 Interpretation: normal SpO2: 96 O2 Delivery: Room Air - Course EKG Interpreted by Me: RATE (95), Sinus Rhythm, NORMAL AXIS, NORMAL INTERVALS, NORMAL QRS, NORMAL ST-T, Other (no previous EKG for comparison) Ordered Tests: Active Orders 24 hr Category Date Time Status EKG-ER Only STAT Care 02/27/19 16:14 Active IV Insertion STAT Care 02/27/19 16:14 Active ABDOMEN AND PELVIS W/0 CONTRAS [CT] Stat Exams 02/27/19 17:09 Taken AMYLASE Stat Lab 02/27/19 16:23 Completed CBC W DIFF Stat Lab 02/27/19 16:23 Completed CMP Stat Lab 02/27/19 16:23 Completed CULTURE,URINE Stat Lab 02/27/19 16:19 Received HCG,QUALITATIVE URINE Stat Lab 02/27/19 17:29 Completed LIPASE Stat Lab 02/27/19 16:23 Completed Lactic Acid Stat Lab 02/27/19 16:23 Completed PROTIME WITH INR Stat Lab 02/27/19 16:23 Completed TROPONIN Q3H Lab 02/27/19 16:23 Completed TROPONIN Q3H Lab 02/27/19 19:15 Ordered TROPONIN Q3H Lab 02/27/19 22:15 Ordered TROPONIN Q3H Lab 02/28/19 01:15 Ordered TROPONIN Q3H Lab 02/28/19 04:15 Ordered UA W/RFX UR CULTURE Stat Lab 02/27/19 16:19 Completed Medication Summary Discontinued Medications Generic Name Dose Route Start Last Admin Trade Name Freq PRN Reason Stop Dose Admin Diphenhydramine HCl 25 mg 02/27/19 16:14 02/27/19 16:52 Benadryl 50 Mg/Ml IV 02/27/19 16:15 25 mg STAT ONE Administration Diphenhydramine HCl Confirm 02/27/19 16:43 Benadryl 50 Mg/Ml Administered 02/27/19 16:44 Dose 50 mg .ROUTE .STK-MED ONE Famotidine 20 mg 02/27/19 16:14 02/27/19 16:52 Pepcid 20 Mg Vial IV 02/27/19 16:15 20 mg STAT ONE Administration Famotidine Confirm 02/27/19 16:43 Pepcid 20 Mg Vial Administered 02/27/19 16:44 Dose 20 mg IV .STK-MED ONE Sodium Chloride 1,000 mls @ 999 mls/hr 02/27/19 16:14 02/27/19 18:21 Sodium Chloride 0.9% 1000 Ml IV 02/27/19 17:14 Infused .Q1H1M STA Infusion Sodium Chloride Confirm 02/27/19 16:43 Sodium Chloride 0.9% 1000 Ml Administered 02/27/19 16:44 Dose 1,000 mls @ ud .ROUTE .STK-MED ONE Sodium Chloride 1,000 mls @ 999 mls/hr 02/27/19 17:09 02/27/19 18:01 Sodium Chloride 0.9% 1000 Ml IV 02/27/19 18:09 999 mls/hr .Q1H1M STA Administration Ceftriaxone Sodium/Dextrose 1 g in 50 mls @ 100 mls/hr 02/27/19 18:01 18:14 Rocephin 1 Gm-D5w 50 Ml Bag IV 02/27/19 18:30 100 mls/hr STAT STA 100 mls/hr Administration Sodium Chloride Confirm 02/27/19 18:00 Sodium Chloride 0.9% 1000 Ml Administered 02/27/19 18:01 Dose 1,000 mls @ ud .ROUTE .STK-MED ONE Ceftriaxone Sodium/Dextrose Confirm 02/27/19 18:12 Rocephin 1 Gm-D5w 50 Ml Bag Administered 02/27/19 18:13 Dose 1 g in 50 mls @ ud IV .STK-MED ONE Morphine Sulfate 4 mg 02/27/19 16:14 02/27/19 16:52 Morphine Sulfate 4 Mg Inj IV 02/27/19 16:15 4 mg STAT ONE Administration Morphine Sulfate Confirm 02/27/19 16:43 Morphine Sulfate 4 Mg Inj Administered 02/27/19 16:44 Dose 4 mg .ROUTE .STK-MED ONE Lab/Rad Data: Laboratory Result Diagrams 02/27/19 16:23 02/27/19 16:23 Laboratory Results 02/27/19 02/27/19 02/27/19 Range/Units 17:29 16:23 16:23 WBC (4.0-10.5) K/mm3 RBC (4.1-5.4) M/mm3 Hgb (12.0-16.0) gm/dl Hct (35-47) % MCV (78-100) fl MCH (26-32) pg MCHC (32-36) g/dl RDW (11.5-14.0) % Plt Count (150-450) K/mm3 MPV (6-9.5) fl Gran % (36.0-66.0) % Eos # (Auto) (0-0.5) Absolute Lymphs (auto) (1.0-4.6) Absolute Monos (auto) (0.0-1.3) Lymphocytes % (24.0-44.0) % Monocytes % (0.0-12.0) % Eosinophils % (0.00-5.0) % Basophils % (0.0-0.4) % Absolute Granulocytes (1.4-6.9) Basophils # (0-0.4) PT 12.9 H (9.95-12.35) SECONDS INR 1.14 (0.8-3.0) Sodium (137-145) mmol/L Potassium (3.5-5.1) mmol/L Chloride (98-107) mmol/L Carbon Dioxide (22-30) mmol/L Anion Gap (5-15) MEQ/L BUN (7-17) mg/dL Creatinine (0.52-1.04) mg/dL Estimated GFR ML/MIN Glucose (74-106) mg/dL Lactic Acid (0.4-2.0) Calcium (8.4-10.2) mg/dL Total Bilirubin (0.2-1.3) mg/dL AST (14-36) U/L ALT (0-35) U/L Alkaline Phosphatase (38-126) U/L Troponin I < 0.012 (0.000-0.034) ng/mL Serum Total Protein (6.3-8.2) g/dL Albumin (3.5-5.0) g/dL Amylase (30-110) U/L Lipase (23-300) U/L Urine Color (YELLOW) Urine Appearance (CLEAR) Urine pH (5-6) Ur Specific [place] (1.005-1.025) Urine Protein (Negative) Urine Ketones (NEGATIVE) Urine Blood (0-5) Eddie/ul Urine Nitrite (NEGATIVE) Urine Bilirubin (NEGATIVE) Urine Urobilinogen (0-1) mg/dL Ur Leukocyte Esterase (NEGATIVE) Urine WBC (Auto) (0-5) /HPF Urine RBC (Auto) (0-2) /HPF U Epithel Cells (Auto) (FEW) /HPF Urine Bacteria (Auto) (NEGATIVE) /HPF Urine Mucus (Auto) (NEGATIVE) /HPF Urine Culture Reflexed (NO) Urine Glucose (NEGATIVE) mg/dL Urine HCG, Qual NEGATIVE (Negative) 02/27/19 02/27/19 02/27/19 Range/Units 16:23 16:23 16:23 WBC 9.9 (4.0-10.5) K/mm3 RBC 4.83 (4.1-5.4) M/mm3 Hgb 11.0 L (12.0-16.0) gm/dl Hct 36.5 (35-47) % MCV 75.6 L (78-100) fl MCH 22.7 L (26-32) pg MCHC 30.1 L (32-36) g/dl RDW 17.2 H (11.5-14.0) % Plt Count 221 (150-450) K/mm3 MPV 8.2 (6-9.5) fl Gran % 89.6 H (36.0-66.0) % Eos # (Auto) 0.05 (0-0.5) Absolute Lymphs (auto) 0.55 L (1.0-4.6) Absolute Monos (auto) 0.43 (0.0-1.3) Lymphocytes % 5.5 L (24.0-44.0) % Monocytes % 4.3 (0.0-12.0) % Eosinophils % 0.5 (0.00-5.0) % Basophils % 0.1 (0.0-0.4) % Absolute Granulocytes 8.87 H (1.4-6.9) Basophils # 0.01 (0-0.4) PT (9.95-12.35) SECONDS INR (0.8-3.0) Sodium 140 (137-145) mmol/L Potassium 4.1 (3.5-5.1) mmol/L Chloride 100 (98-107) mmol/L Carbon Dioxide 26 (22-30) mmol/L Anion Gap 18.6 H (5-15) MEQ/L BUN 10 (7-17) mg/dL Creatinine 0.54 (0.52-1.04) mg/dL Estimated GFR > 60.0 ML/MIN Glucose 222 H (74-106) mg/dL Lactic Acid 1.1 (0.4-2.0) Calcium 10.1 (8.4-10.2) mg/dL Total Bilirubin 1.10 (0.2-1.3) mg/dL AST 39 H (14-36) U/L ALT 45 H (0-35) U/L Alkaline Phosphatase 90 (38-126) U/L Troponin I (0.000-0.034) ng/mL Serum Total Protein 7.9 (6.3-8.2) g/dL Albumin 4.5 (3.5-5.0) g/dL Amylase 49 (30-110) U/L Lipase 40 (23-300) U/L Urine Color (YELLOW) Urine Appearance (CLEAR) Urine pH (5-6) Ur Specific [place] (1.005-1.025) Urine Protein (Negative) Urine Ketones (NEGATIVE) Urine Blood (0-5) Eddie/ul Urine Nitrite (NEGATIVE) Urine Bilirubin (NEGATIVE) Urine Urobilinogen (0-1) mg/dL Ur Leukocyte Esterase (NEGATIVE) Urine WBC (Auto) (0-5) /HPF Urine RBC (Auto) (0-2) /HPF U Epithel Cells (Auto) (FEW) /HPF Urine Bacteria (Auto) (NEGATIVE) /HPF Urine Mucus (Auto) (NEGATIVE) /HPF Urine Culture Reflexed (NO) Urine Glucose (NEGATIVE) mg/dL Urine HCG, Qual (Negative) 02/27/19 Range/Units 16:19 WBC (4.0-10.5) K/mm3 RBC (4.1-5.4) M/mm3 Hgb (12.0-16.0) gm/dl Hct (35-47) % MCV (78-100) fl MCH (26-32) pg MCHC (32-36) g/dl RDW (11.5-14.0) % Plt Count (150-450) K/mm3 MPV (6-9.5) fl Gran % (36.0-66.0) % Eos # (Auto) (0-0.5) Absolute Lymphs (auto) (1.0-4.6) Absolute Monos (auto) (0.0-1.3) Lymphocytes % (24.0-44.0) % Monocytes % (0.0-12.0) % Eosinophils % (0.00-5.0) % Basophils % (0.0-0.4) % Absolute Granulocytes (1.4-6.9) Basophils # (0-0.4) PT (9.95-12.35) SECONDS INR (0.8-3.0) Sodium (137-145) mmol/L Potassium (3.5-5.1) mmol/L Chloride (98-107) mmol/L Carbon Dioxide (22-30) mmol/L Anion Gap (5-15) MEQ/L BUN (7-17) mg/dL Creatinine (0.52-1.04) mg/dL Estimated GFR ML/MIN Glucose (74-106) mg/dL Lactic Acid (0.4-2.0) Calcium (8.4-10.2) mg/dL Total Bilirubin (0.2-1.3) mg/dL AST (14-36) U/L ALT (0-35) U/L Alkaline Phosphatase (38-126) U/L Troponin I (0.000-0.034) ng/mL Serum Total Protein (6.3-8.2) g/dL Albumin (3.5-5.0) g/dL Amylase (30-110) U/L Lipase (23-300) U/L Urine Color YELLOW (YELLOW) Urine Appearance SLIGHTLY CLOUDY (CLEAR) Urine pH 6.0 (5-6) Ur Specific [place] 1.017 (1.005-1.025) Urine Protein 30 (Negative) Urine Ketones MODERATE (NEGATIVE) Urine Blood LARGE (0-5) Eddie/ul Urine Nitrite NEGATIVE (NEGATIVE) Urine Bilirubin NEGATIVE (NEGATIVE) Urine Urobilinogen NEGATIVE (0-1) mg/dL Ur Leukocyte Esterase TRACE (NEGATIVE) Urine WBC (Auto) 26-50 (0-5) /HPF Urine RBC (Auto) >101 (0-2) /HPF U Epithel Cells (Auto) NONE (FEW) /HPF Urine Bacteria (Auto) RARE (NEGATIVE) /HPF Urine Mucus (Auto) SLIGHT (NEGATIVE) /HPF Urine Culture Reflexed YES (NO) Urine Glucose 50 (NEGATIVE) mg/dL Urine HCG, Qual (Negative) - Progress Progress: improved Progress Note: 02/27/19 18:37 Patient has no abdominal pain, no flank pain and no nausea or vomiting. Patient has no abdominal pain or CVA tenderness on repeat evaluation Counseled pt/family regarding: lab results, diagnosis, need for follow-up, rad results - Departure Departure Disposition: Home Clinical Impression: Left flank pain UTI (urinary tract infection) Qualifiers: Urinary tract infection type: acute cystitis Hematuria presence: without hematuria Qualified Code(s): N30.00 - Acute cystitis without hematuria Nausea and vomiting Qualifiers: Vomiting type: unspecified Vomiting Intractability: non-intractable Qualified Code(s): R11.2 - Nausea with vomiting, unspecified Hypertension Qualifiers: Hypertension type: essential hypertension Qualified Code(s): I10 - Essential ( primary) hypertension Condition: Good Critical Care Time: No Referrals: RENETTA MEAD [Primary Care Provider] - 02/28/19 Instructions: Nausea -- Adult, Flank Pain (DC) Additional Instructions: Return immediately back to the Emergency Department if any worsening abdominal pain, back pain, flank pain, worsening nausea or vomiting, or any other concerning signs or symptoms that were not present at today's emergency department visit for immediate reevaluation in the emergency department. Prescriptions: Smz/Tmp Ds Tablet [Bactrim Ds Tablet] 1 tab PO Q12H #6 tablet
[2019-02-27 16:24] LABS: Absolute Neutrophil Ct (ANC) 8.87 (1.4-6.9); BASOPHIL % 0.1 % (0.0-0.4); Basophil (Absolute #) 0.01 (0-0.4); Eosinophil % 0.5 % (0.00-5.0); Eosinophil (Absolute #) 0.05 (0-0.5); Hematocrit 36.5 % (35-47); Lymphocyte (Absolute #) 0.55 (1.0-4.6); Lymphocytes % 5.5 % (24.0-44.0); Mean Cell Volume 75.6 fl (78-100); Mean Corpuscular Hgb Concent. 30.1 g/dl (32-36); Mean Platelet Volume 8.2 fl (6-9.5); Monocyte (Absolute #) 0.43 (0.0-1.3); Monocytes % 4.3 % (0.0-12.0); Neutrophil % 89.6 % (36.0-66.0); Platelet Count 221 K/mm3 (150-450); Red Blood Count 4.83 M/mm3 (4.1-5.4); Red Cell Distribution Width 17.2 % (11.5-14.0); White Blood Count 9.9 K/mm3 (4.0-10.5)
[2019-02-27 16:25] LABS: Mean Corpuscular Hemoglobin 22.7 pg (26-32)
[2019-02-27 16:31] LABS: INR 1.14 (0.8-3.0); PROTIME 12.9 SECONDS (9.95-12.35)
[2019-02-27 16:34] LABS: Appearance SLIGHTLY CLOUDY (CLEAR); Bilirubin NEGATIVE (NEGATIVE); Blood LARGE Ery/ul (0-5); Glucose 50 mg/dL (NEGATIVE); Ketones MODERATE (NEGATIVE); Leukocyte Esterase TRACE (NEGATIVE); Mucus SLIGHT /HPF (NEGATIVE); Nitrite NEGATIVE (NEGATIVE); Protein,Urine Dip 30 (Negative); Specific Gravity 1.017 (1.005-1.025); Urobilinogen NEGATIVE mg/dL (0-1); WBC 26-50 /HPF (0-5)
[2019-02-27 16:36] LABS: Bacteria RARE /HPF (NEGATIVE); RBC >101 /HPF (0-2)
[2019-02-27] MEDS ORDERED: MORPHINE SULFATE 4 MG INJ ONE (16:43)
[2019-02-27] MEDS ORDERED: BENADRYL 50 MG/ML ONE (16:43)
[2019-02-27] MEDS ORDERED: Sodium Chloride 0.9% 1000 ML 1,000 ML ONE ×2 (16:43→18:00)
[2019-02-27 16:55] LABS: ALBUMIN 4.5 g/dL (3.5-5.0); ALKALINE PHOSPHATASE 90 U/L (38-126); AMYLASE 49 U/L (30-110); ANION GAP 18.6 MEQ/L (5-15); BLOOD UREA NITROGEN 10 mg/dL (7-17); CHLORIDE 100 mmol/L (98-107); Calcium 10.1 mg/dL (8.4-10.2); Carbon Dioxide 26 mmol/L (22-30); Creatinine 1 0.54 mg/dL (0.52-1.04); Glucose 222 mg/dL (74-106); LIPASE 40 U/L (23-300); Potassium 4.1 mmol/L (3.5-5.1); SGOT/AST 39 U/L (14-36); SGPT/ALT 45 U/L (0-35); SODIUM 140 mmol/L (137-145); Total Protein 7.9 g/dL (6.3-8.2)
[2019-02-27] MEDS ORDERED: ROCEPHIN 1 Gm-D5w 50 ml Bag** 1 G/50 ML IVPB IV STA (18:01)
[2019-02-27 18:11] VITALS: PULSE 91
[2019-02-27] MEDS ORDERED: ROCEPHIN 1 Gm-D5w 50 ml Bag** 1 G/50 ML IVPB IV ONE (18:12)
[2019-02-27 18:41] VITALS: O2SAT 96
[2019-02-27 19:21] VITALS: BP 155/90
--- NOTE | 2019-02-27 21:30 | XRAY ---
Indication: Left flank pain. Multiple contiguous axial images obtained through the abdomen and pelvis without contrast as ordered. Comparison: June 13, 2018. Lung bases demonstrate stable right base calcified granuloma. No infiltrate or effusion. Heart is not enlarged. Noncontrasted stomach and bowel loops again nonobstructed. Normal appendix. No free fluid/air. Spleen remains enlarged measuring 15 cm in greatest axial dimension. New tiny right lobe hepatic calcified granulomas. Remaining liver, gallbladder, pancreas, spleen, adrenal glands, kidneys, ureters, bladder, and uterus appear unremarkable for noncontrast exam. Again minimal aortoiliac calcifications without AAA. Osseous structures intact. Impression: 1. Stable splenomegaly. 2. New tiny hepatic calcified granulomas with stable right lower lobe calcified granuloma. 3. Remaining CT abdomen/pelvis without contrast exam is negative. Comment: Preliminary interpretation was made by C. No critical discrepancy. CTDI 23.68
== END 2019-02-27 20:21 | disposition home or self-care (01) ==
LOC: ED 15:55
DX: R10.9 Unspecified abdominal pain (principal); N30.00 Acute cystitis without hematuria; R11.2 Nausea with vomiting, unspecified; I10 Essential (primary) hypertension
CPT/HCPCS: 36000; 36415; 74176; 80053; 81001; 82150; 83605; 83690; 84484; 84703; 85025; 85610; 87086; 93005; 96360; 96374; 96375; 99285; J0696; J1200; J2270

== ENCOUNTER 2020-08-28 03:43 | Emergency (ER) | payer OTHER ==
[2020-08-28] MEDS ORDERED: Hydromorphone 1 mg/ml Injection IV ONE (03:59)
[2020-08-28] MEDS ORDERED: Zofran 4 MG/2 ML VIAL IV ONE (03:59)
[2020-08-28] MEDS ORDERED: Sodium Chloride 0.9% 1000 ML 1,000 ML IV STA (03:59)
--- NOTE | 2020-08-28 03:59 | ERPHSYRPT ---
- History of Present Illness Time Seen by Provider: 08/28/20 03:54 Historian: patient Exam Limitations: no limitations Physician History: This is a 34-year-old white female diabetic with hypertension and presents with a 5-day history of left flank pain which radiates around into her left lower quadrant. She was [facility] was diag nosed with both kidney stones and gallstones per her report. She states that she was seen at [facility] both Thursday and Thursday prior to this evaluation. She was sent home with instructions to drink plenty of fluids and to take Tylenol ibuprofen for pain control. Patient states she is unable to hold anything down orally. Patient has not had fever she has no chest pain she has no shortness of breath. Timing/Duration: day(s) (5) Activities at Onset: none Quality: sharpness, stabbing Abdominal Pain Onset Location: LLQ (Left), flank Severity of Pain-Max: moderate Severity of Pain-Current: moderate Associated Symptoms: vomiting Previous symptoms: same symptoms as today, recently seen, recently treated Allergies/Adverse Reactions: clindamycin Allergy (Mild, Verified 02/27/19 16:15) Blisters erythromycin base [Erythromycin Base] Allergy (Verified 02/27/19 16:15) Blisters ketorolac [From Toradol] Allergy (Verified 08/28/20 03:53) Lightheadedness Penicillins Allergy (Verified 02/27/19 16:15) Hives Home Medications: Lisinopril 10 mg [Zestril 10 MG] 20 mg PO DAILY 08/07/13 [History] Insulin Glargine,Hum.rec.anlog [Basaglar Kwikpen U-100] 90 unit SQ BID 10/29/16 [History] Insulin Glulisine [Apidra] 38 unit SQ AC 10/29/16 [History] Hx Tetanus, Diphtheria Vaccination/Date Given: Yes Hx Influenza Vaccination/Date Given: No Hx Pneumococcal Vaccination/Date Given: No Travel Risk - International Travel Have you traveled outside of the country in past 3 weeks: No - Coronavirus Screening Are you exhibiting any of the following symptoms?: No Close contact with a COVID-19 positive Pt in past 14-21 Days: No - Vaccine Status Have you recieved a Covid-19 vaccination: No - Review of Systems Constitutional: No Symptoms Eyes: No Symptoms Ears, Nose, & Throat: No Symptoms Respiratory: No Symptoms Cardiac: No Symptoms Abdominal/Gastrointestinal: Abdominal Pain (Left lower quadrant), Nausea, Vomiting, Appetite Changes Genitourinary Symptoms: Flank Pain (Left) Musculoskeletal: No Symptoms Skin: No Symptoms Neurological: No Symptoms Psychological: No Symptoms Endocrine: No Symptoms Hematologic/Lymphatic: No Symptoms Immunological/Allergic: No Symptoms All Other Systems: Reviewed and Negative - Past Medical History Pertinent Past Medical History: Yes Neurological History: No Pertinent History ENT History: No Pertinent History Cardiac History: Hypertension Endocrine Medical History: Diabetes Type I Musculoskeletal History: No Pertinent History GI Medical History: No Pertinent History, Other History: No Pertinent History Psycho-Social History: No Pertinent History Female Reproductive Disorders: No Pertinent History Other Medical History: ciliac - Past Surgical History Past Surgical History: No - Social History Smoking Status: Never smoker Exposure to second hand smoke: Yes Drug Use: none Patient Lives Alone: No - Nursing Vital Signs Nursing Vital Signs: Initial Vital Signs Temperature 98.3 F 08/28/20 03:55 Pulse Rate 104 H 08/28/20 03:55 Respiratory Rate 16 08/28/20 03:55 Blood Pressure 181/96 08/28/20 03:55 O2 Sat by Pulse Oximetry 98 08/28/20 03:55 Pain Scale Pain Intensity 7 - Physical Exam General Appearance: no apparent distress, alert, anxiety, obese Eye Exam: PERRL/EOMI, eyes nml inspection Ears, Nose, Throat Exam: normal ENT inspection, moist mucous membranes Neck Exam: normal inspection, non-tender, supple, full range of motion Respiratory Exam: normal breath sounds, lungs clear, airway intact, No chest tenderness, No respiratory distress Cardiovascular Exam: regular rate/rhythm, normal heart sounds, normal peripheral pulses Gastrointestinal/Abdomen Exam: soft, normal bowel sounds, tenderness, guarding, No rebound Pelvic Exam: not done Rectal Exam: not done Back Exam: normal inspection, normal range of motion, CVA tenderness (Left), No vertebral tenderness Extremity Exam: normal inspection, normal range of motion, pelvis stable Neurologic Exam: alert, oriented x 3, cooperative, accessibility lift technician II-XII nml as tested, normal mood/affect, nml cerebellar function, nml station & gait, sensation nml Skin Exam: normal color, warm, dry Lymphatic Exam: No adenopathy SpO2 Interpretation: normal O2 Delivery: Room Air Ordered Tests: Active Orders 24 hr Category Date Time Status IV Insertion STAT Care 08/28/20 03:59 Active ABDOMEN AND PELVIS W/0 CONTRAS [CT] Stat Exams 08/28/20 04:00 Taken AMYLASE Stat Lab 08/28/20 04:18 Completed CBC W DIFF Stat Lab 08/28/20 04:18 Completed CMP Stat Lab 08/28/20 04:18 Completed CULTURE,URINE Stat Lab 08/28/20 04:18 Received LIPASE Stat Lab 08/28/20 04:18 Completed Lactic Acid Stat Lab 08/28/20 03:59 Completed UA W/RFX UR CULTURE Stat Lab 08/28/20 04:18 Completed Medication Summary Discontinued Medications Generic Name Dose Route Start Last Admin Trade Name Freq PRN Reason Stop Dose Admin Hydromorphone HCl 1 mg 08/28/20 03:59 08/28/20 04:18 Hydromorphone 1 Mg/Ml Injection IV 08/28/20 04:00 1 mg STAT ONE Administration Hydromorphone HCl Confirm 08/28/20 04:11 Hydromorphone 1 Mg/Ml Injection Administered 08/28/20 04:12 Dose 1 mg .ROUTE .STK-MED ONE Sodium Chloride 1,000 mls @ 999 mls/hr 08/28/20 03:59 08/28/20 04:18 Sodium Chloride 0.9% 1000 Ml IV 08/28/20 04:59 999 mls/hr .Q1H1M STA Administration Sodium Chloride Confirm 08/28/20 04:11 Sodium Chloride 0.9% 1000 Ml Administered 08/28/20 04:12 Dose 1,000 mls @ ud .ROUTE .STK-MED ONE Ondansetron HCl 4 mg 08/28/20 03:59 08/28/20 04:18 Zofran 4 Mg/2 Ml Vial IV 08/28/20 04:00 4 mg STAT ONE Administration Ondansetron HCl Confirm 08/28/20 04:11 Zofran 4 Mg/2 Ml Vial Administered 08/28/20 04:12 Dose 4 mg .ROUTE .STK-MED ONE Lab/Rad Data: Laboratory Result Diagrams 08/28/20 04:18 08/28/20 04:18 Laboratory Results 08/28/20 08/28/2021 Range/Units 04:18 04:18 04:18 WBC 8.0 (4.0-10.5) K/mm3 RBC 4.76 (4.1-5.4) M/mm3 Hgb 10.2 L (12.0-16.0) gm/dl Hct 35.1 (35-47) % MCV 73.7 L (78-100) fl MCH 21.4 L (26-32) pg MCHC 29.1 L (32-36) g/dl RDW 17.2 H (11.5-14.0) % Plt Count 233 (150-450) K/mm3 MPV 9.3 (7.5-11.0) fl Gran % 83.3 H (36.0-66.0) % Eos # (Auto) 0.06 (0-0.5) Absolute Lymphs (auto) 0.70 L (1.0-4.6) Absolute Monos (auto) 0.56 (0.0-1.3) Lymphocytes % 8.8 L (24.0-44.0) % Monocytes % 7.0 (0.0-12.0) % Eosinophils % 0.8 (0.00-5.0) % Basophils % 0.1 (0.0-0.4) % Absolute Granulocytes 6.66 (1.4-6.9) Basophils # 0.01 (0-0.4) Sodium 135 L (137-145) mmol/L Potassium 3.5 (3.5-5.1) mmol/L Chloride 98 (98-107) mmol/L Carbon Dioxide 28 (22-30) mmol/L Anion Gap 13.0 (5-15) MEQ/L BUN 9 (7-17) mg/dL Creatinine 0.64 (0.52-1.04) mg/dL Estimated GFR > 60.0 ML/MIN Glucose 182 H (74-106) mg/dL Lactic Acid (0.4-2.0) Calcium 9.5 (8.4-10.2) mg/dL Total Bilirubin 0.80 (0.2-1.3) mg/dL AST 30 (14-36) U/L ALT 35 (0-35) U/L Alkaline Phosphatase 89 (38-126) U/L Serum Total Protein 7.4 (6.3-8.2) g/dL Albumin 4.2 (3.5-5.0) g/dL Amylase 45 (30-110) U/L Lipase 50 (23-300) U/L Urine Color YELLOW (YELLOW) Urine Appearance CLOUDY (CLEAR) Urine pH 5.0 (5-6) Ur Specific [place] 1.026 (1.005-1.025) Urine Protein >=500 (Negative) Urine Ketones SMALL (NEGATIVE) Urine Blood LARGE (0-5) Eddie/ul Urine Nitrite NEGATIVE (NEGATIVE) Urine Bilirubin NEGATIVE (NEGATIVE) Urine Urobilinogen 2 (0-1) mg/dL Ur Leukocyte Esterase TRACE (NEGATIVE) Urine WBC (Auto) 11-15 (0-5) /HPF Urine RBC (Auto) 3-5 (0-2) /HPF U Epithel Cells (Auto) RARE (FEW) /HPF Urine Bacteria (Auto) NONE (NEGATIVE) /HPF Calcium Oxalate Crystal 3-5 (NEGATIVE) /HPF Urine Mucus (Auto) SLIGHT (NEGATIVE) /HPF Urine Culture Reflexed YES (NO) Urine Glucose NEGATIVE (NEGATIVE) mg/dL Slides for Path Review YES 08/28/20 Range/Units 03:59 WBC (4.0-10.5) K/mm3 RBC (4.1-5.4) M/mm3 Hgb (12.0-16.0) gm/dl Hct (35-47) % MCV (78-100) fl MCH (26-32) pg MCHC (32-36) g/dl RDW (11.5-14.0) % Plt Count (150-450) K/mm3 MPV (7.5-11.0) fl Gran % (36.0-66.0) % Eos # (Auto) (0-0.5) Absolute Lymphs (auto) (1.0-4.6) Absolute Monos (auto) (0.0-1.3) Lymphocytes % (24.0-44.0) % Monocytes % (0.0-12.0) % Eosinophils % (0.00-5.0) % Basophils % (0.0-0.4) % Absolute Granulocytes (1.4-6.9) Basophils # (0-0.4) Sodium (137-145) mmol/L Potassium (3.5-5.1) mmol/L Chloride (98-107) mmol/L Carbon Dioxide (22-30) mmol/L Anion Gap (5-15) MEQ/L BUN (7-17) mg/dL Creatinine (0.52-1.04) mg/dL Estimated GFR ML/MIN Glucose (74-106) mg/dL Lactic Acid 1.3 (0.4-2.0) Calcium (8.4-10.2) mg/dL Total Bilirubin (0.2-1.3) mg/dL AST (14-36) U/L ALT (0-35) U/L Alkaline Phosphatase (38-126) U/L Serum Total Protein (6.3-8.2) g/dL Albumin (3.5-5.0) g/dL Amylase (30-110) U/L Lipase (23-300) U/L Urine Color (YELLOW) Urine Appearance (CLEAR) Urine pH (5-6) Ur Specific [place] (1.005-1.025) Urine Protein (Negative) Urine Ketones (NEGATIVE) Urine Blood (0-5) Eddie/ul Urine Nitrite (NEGATIVE) Urine Bilirubin (NEGATIVE) Urine Urobilinogen (0-1) mg/dL Ur Leukocyte Esterase (NEGATIVE) Urine WBC (Auto) (0-5) /HPF Urine RBC (Auto) (0-2) /HPF U Epithel Cells (Auto) (FEW) /HPF Urine Bacteria (Auto) (NEGATIVE) /HPF Calcium Oxalate Crystal (NEGATIVE) /HPF Urine Mucus (Auto) (NEGATIVE) /HPF Urine Culture Reflexed (NO) Urine Glucose (NEGATIVE) mg/dL Slides for Path Review - Progress Progress: improved, pain not gone completely Progress Note: 08/28/20 06:16 CAT scan of the abdomen pelvis without contrast shows multiple prominent lymph nodes within the mesentery. They appear to be nonspecific and nonpathologic. Most likely it represents viral mesenteric adenitis. There is either sludge or small stones within the gallbladder but no gallbladder wall thickening or pericholecystic fluid. There is a punctate nonobstructing calculus within the right kidney. No hydronephrosis present. 08/28/20 06:25 Patient states that she no longer is seeing a pain specialist. Therefore we will provide her with a prescription for 2 days of [place] 5/325. Counseled pt/family regarding: lab results, diagnosis, need for follow-up, rad results - Departure Departure Disposition: Home Clinical Impression: UTI (urinary tract infection), Mesenteric adenitis Condition: Stable Critical Care Time: No Referrals: RENETTA MEAD [Primary Care Provider] - Additional Instructions: Drink plenty of fluids. Take your medication as prescribed. Follow-up with your primary care physician and a general surgeon for evaluation of your gallstones. Prescriptions: Hydrocodone/APAP 5/325 [[place] 5/325 mg] 1 each PO Q8H PRN PRN #6 tablet MDD 3 PRN Reason: Pain Ciprofloxacin [Cipro 500 MG] 500 mg PO BID #14 tablet
[2020-08-28] MEDS ORDERED: Hydromorphone 1 mg/ml Injection ONE (04:11)
[2020-08-28] MEDS ORDERED: Zofran 4 MG/2 ML VIAL ONE (04:11)
[2020-08-28] MEDS ORDERED: Sodium Chloride 0.9% 1000 ML 1,000 ML ONE (04:11)
[2020-08-28 04:25] LABS: Absolute Neutrophil Ct (ANC) 6.66 (1.4-6.9); BASOPHIL % 0.1 % (0.0-0.4); Basophil (Absolute #) 0.01 (0-0.4); Eosinophil % 0.8 % (0.00-5.0); Eosinophil (Absolute #) 0.06 (0-0.5); Hematocrit 35.1 % (35-47); Hemoglobin 10.2 gm/dl (12.0-16.0); Lymphocytes % 8.8 % (24.0-44.0); Mean Cell Volume 73.7 fl (78-100); Mean Corpuscular Hemoglobin 21.4 pg (26-32); Mean Corpuscular Hgb Concent. 29.1 g/dl (32-36); Mean Platelet Volume 9.3 fl (7.5-11.0); Monocyte (Absolute #) 0.56 (0.0-1.3); Neutrophil % 83.3 % (36.0-66.0); Platelet Count 233 K/mm3 (150-450); Red Blood Count 4.76 M/mm3 (4.1-5.4); Red Cell Distribution Width 17.2 % (11.5-14.0)
[2020-08-28 04:39] LABS: ALBUMIN 4.2 g/dL (3.5-5.0); ALKALINE PHOSPHATASE 89 U/L (38-126); AMYLASE 45 U/L (30-110); BLOOD UREA NITROGEN 9 mg/dL (7-17); CHLORIDE 98 mmol/L (98-107); Calcium 9.5 mg/dL (8.4-10.2); Carbon Dioxide 28 mmol/L (22-30); Creatinine 1 0.64 mg/dL (0.52-1.04); EST GLOMERULAR FILTRATION RATE > 60.0 ML/MIN; Glucose 182 mg/dL (74-106); LIPASE 50 U/L (23-300); Potassium 3.5 mmol/L (3.5-5.1); SGOT/AST 30 U/L (14-36); SGPT/ALT 35 U/L (0-35); SODIUM 135 mmol/L (137-145); Total Protein 7.4 g/dL (6.3-8.2)
[2020-08-28 04:41] LABS: Appearance CLOUDY (CLEAR); Bilirubin NEGATIVE (NEGATIVE); Blood LARGE Ery/ul (0-5); Epithelial Cells RARE /HPF (FEW); Glucose NEGATIVE (NEGATIVE); Ketones SMALL (NEGATIVE); Leukocyte Esterase TRACE (NEGATIVE); Mucus SLIGHT /HPF (NEGATIVE); Nitrite NEGATIVE (NEGATIVE); Protein,Urine Dip >=500 (Negative); Specific Gravity 1.026 (1.005-1.025); Urobilinogen 2 mg/dL (0-1)
[2020-08-28 05:06] LABS: Slide Review 1 YES
[2020-08-28] MEDS ORDERED: Levofloxacin 500 MG Tablet PO ONE (06:15)
[2020-08-28] MEDS ORDERED: Levofloxacin 500 MG Tablet ONE (06:24)
[2020-08-28 06:27] VITALS: BP 134/73; PULSE 90; O2SAT 100
--- NOTE | 2020-08-28 09:10 | XRAY ---
Indication: Left flank pain. History stones. Multiple contiguous axial images obtained through the abdomen and pelvis without contrast. Comparison: February 27, 2019. Lung bases demonstrate stable right base granuloma. No infiltrate or effusion. Heart is not enlarged. Continued negative for renal calculus or evidence for obstructive uropathy. Noncontrasted stomach and bowel loops appear nonobstructed with normal appendix. No free fluid/air. Spleen remains enlarged measuring 15 cm. Remaining liver, gallbladder, pancreas, spleen, adrenal glands, kidneys, ureters, bladder, uterus are unremarkable for noncontrast exam. Minimal scattered aortoiliac calcifications without AAA. Osseous structures intact. Impression: 1. Continued negative renal calculus or evidence for obstructive uropathy. 2. Again incidental splenomegaly and right lower lobe calcified granuloma. 3. Remaining CT abdomen/pelvis without contrast is negative. Comment: Preliminary interpretation was made by [facility]. No critical discrepancy.
== END 2020-08-28 06:52 | disposition home or self-care (01) ==
LOC: ED 03:43
DX: N39.0 Urinary tract infection, site not specified (principal); I88.0 Nonspecific mesenteric lymphadenitis
CPT/HCPCS: 36000; 36415; 74176; 80053; 81001; 82150; 83605; 83690; 85025; 87086; 96360; 96374; 96375; 99284; J1170; J2405; A9270-GY

== ENCOUNTER 2020-09-02 14:40 | Emergency (ER) | payer OTHER ==
[2020-09-02] MEDS ORDERED: PROTONIX 40 MG IV IV ONE ×2 (14:54→15:24)
[2020-09-02] MEDS ORDERED: Zofran 4 MG/2 ML VIAL IV ONE (14:54)
[2020-09-02] MEDS ORDERED: Compazine 10 MG/2 ML IV ONE (14:54)
[2020-09-02] MEDS ORDERED: Hydromorphone 1 mg/ml Injection IV ONE (14:54)
[2020-09-02] MEDS ORDERED: Sodium Chloride 0.9% 1000 ML 1,000 ML IV STA (14:54)
[2020-09-02 15:18] LABS: Absolute Neutrophil Ct (ANC) 6.45 (1.4-6.9); BASOPHIL % 0.3 % (0.0-0.4); Basophil (Absolute #) 0.02 (0-0.4); Eosinophil % 0.3 % (0.00-5.0); Eosinophil (Absolute #) 0.02 (0-0.5); Hematocrit 35.5 % (35-47); Hemoglobin 10.4 gm/dl (12.0-16.0); Lymphocyte (Absolute #) 0.48 (1.0-4.6); Lymphocytes % 6.6 % (24.0-44.0); Mean Cell Volume 72.9 fl (78-100); Mean Corpuscular Hemoglobin 21.4 pg (26-32); Mean Corpuscular Hgb Concent. 29.3 g/dl (32-36); Mean Platelet Volume 9.1 fl (7.5-11.0); Monocyte (Absolute #) 0.34 (0.0-1.3); Monocytes % 4.7 % (0.0-12.0); Neutrophil % 88.1 % (36.0-66.0); Platelet Count 238 K/mm3 (150-450); Red Blood Count 4.87 M/mm3 (4.1-5.4); Red Cell Distribution Width 17.1 % (11.5-14.0); White Blood Count 7.3 K/mm3 (4.0-10.5)
[2020-09-02 15:20] LABS: Appearance CLEAR (CLEAR); Bilirubin NEGATIVE (NEGATIVE); Blood NEGATIVE Ery/ul (0-5); Epithelial Cells RARE /HPF (FEW); Glucose >=500 mg/dL (NEGATIVE); Ketones MODERATE (NEGATIVE); Leukocyte Esterase NEGATIVE (NEGATIVE); Nitrite NEGATIVE (NEGATIVE); Protein,Urine Dip NEGATIVE (Negative); RBC 0-2 /HPF (0-2); Specific Gravity 1.009 (1.005-1.025); Urobilinogen NEGATIVE mg/dL (0-1)
[2020-09-02] MEDS ORDERED: Hydromorphone 1 mg/ml Injection ONE (15:24)
[2020-09-02] MEDS ORDERED: Zofran 4 MG/2 ML VIAL ONE (15:24)
[2020-09-02] MEDS ORDERED: Compazine 10 MG/2 ML ONE (15:25)
[2020-09-02] MEDS ORDERED: Sodium Chloride 0.9% 1000 ML 1,000 ML ONE (15:25)
[2020-09-02 15:34] LABS: Amphetamine,Urine NEGATIVE (NEGATIVE); Barbiturate,Urine NEGATIVE (NEGATIVE); Benzodiazepine,Urine NEGATIVE (NEGATIVE); Cocaine,Urine NEGATIVE (NEGATIVE); Methadone,Urine NEGATIVE (NEGATIVE); Opiate,Urine NEGATIVE (NEGATIVE); PCP,Urine NEGATIVE (NEGATIVE); THC,Urine NEGATIVE (NEGATIVE)
[2020-09-02 15:36] LABS: INR 1.13 (0.8-3.0); PROTIME 12.8 SECONDS (9.95-12.35)
[2020-09-02 15:39] LABS: ALBUMIN 4.3 g/dL (3.5-5.0); ALKALINE PHOSPHATASE 98 U/L (38-126); AMYLASE 47 U/L (30-110); ANION GAP 12.8 MEQ/L (5-15); BLOOD UREA NITROGEN 8 mg/dL (7-17); CHLORIDE 98 mmol/L (98-107); Calcium 9.6 mg/dL (8.4-10.2); Carbon Dioxide 26 mmol/L (22-30); Creatinine 1 0.55 mg/dL (0.52-1.04); EST GLOMERULAR FILTRATION RATE > 60.0 ML/MIN; Glucose 264 mg/dL (74-106); LIPASE 47 U/L (23-300); Potassium 4.1 mmol/L (3.5-5.1); SGOT/AST 34 U/L (14-36); SGPT/ALT 49 U/L (0-35); SODIUM 133 mmol/L (137-145); Total Protein 7.6 g/dL (6.3-8.2)
[2020-09-02 16:15] LABS: Slide Review 1 YES
[2020-09-02 16:51] VITALS: BP 135/78; PULSE 88
[2020-09-02 16:54] VITALS: O2SAT 96
--- NOTE | 2020-09-02 16:54 | ERPHSYRPT ---
- History of Present Illness Time Seen by Provider: 09/02/20 15:00 Historian: patient Exam Limitations: no limitations Patient Subjective Stated Complaint: abd pain Triage Nursing Assessment: pt to ED c/o RUQ abd pain and vomiting x 10 days. was seen in ED Thursday for same sx, CT showed kidney stones and gall stones per pt. was referred to surgeon to have cholesystectomy but was told she needed to be seen by GI specialist first. appt schedueld for 09/18/20. pt states sx not getting better and has not been tolerating PO well. Physician History: Patient is a 34-year-old female who presents with a complaint of right upper quadrant pain and sickness for 1 week. She has been seen in several ERs recently with abdominal pain and has had a couple of CT scans which did show gallstones she also had some hematuria associated with some left flank pain. She is nauseated and vomits small amounts and she has had a small amount of right bright red blood as well. He has had the left flank pain since August 23. He is scheduled to see Dr. Alcocer return to vendor September 18. Timing/Duration: week(s) (2) Activities at Onset: none Quality: cramping, stabbing Abdominal Pain Onset Location: RUQ, flank Pain Radiation: no radiation Severity of Pain-Max: severe Severity of Pain-Current: mild Modifying Factors: Improves With: nothing Associated Symptoms: denies symptoms Previous symptoms: same symptoms as today Allergies/Adverse Reactions: clindamycin Allergy (Mild, Verified 09/02/20 14:55) Blisters erythromycin base [Erythromycin Base] Allergy (Verified 09/02/20 14:55) Blisters ketorolac [From Toradol] Allergy (Verified 09/02/20 14:55) Lightheadedness Penicillins Allergy (Verified 09/02/20 14:55) Hives Home Medications: Lisinopril 10 mg [Zestril 10 MG] 20 mg PO DAILY 08/07/13 [History] Insulin Glargine,Hum.rec.anlog [Basaglar Kwikpen U-100] 90 unit SQ BID 10/29/16 [History] Insulin Glulisine [Apidra] 38 unit SQ AC 10/29/16 [History] Nitrofurantoin Macro 100 mg [Macrobid 100MG Capsule] 100 mg PO BID 09/02/20 [History] Hx Tetanus, Diphtheria Vaccination/Date Given: Yes Hx Influenza Vaccination/Date Given: No Hx Pneumococcal Vaccination/Date Given: No Immunizations Up to Date: No Travel Risk - International Travel Have you traveled outside of the country in past 3 weeks: No - Coronavirus Screening Are you exhibiting any of the following symptoms?: Yes Symptoms: Vomiting/Diarrhea Close contact with a COVID-19 positive Pt in past 14-21 Days: No - Vaccine Status Have you recieved a Covid-19 vaccination: No - Review of Systems Constitutional: No Fever, No Chills Eyes: No Symptoms Ears, Nose, & Throat: No Symptoms Respiratory: No Cough, No Dyspnea Cardiac: No Chest Pain, No Edema, No Syncope Abdominal/Gastrointestinal: Abdominal Pain, Nausea, Vomiting, Hematemesis, No Diarrhea Genitourinary Symptoms: No Dysuria Musculoskeletal: No Back Pain, No Neck Pain Skin: No Rash Neurological: No Dizziness, No Focal Weakness, No Sensory Changes Psychological: No Symptoms Endocrine: No Symptoms All Other Systems: Reviewed and Negative - Past Medical History Pertinent Past Medical History: Yes Neurological History: No Pertinent History ENT History: No Pertinent History Cardiac History: Hypertension Respiratory History: No Pertinent History Endocrine Medical History: Diabetes Type I Musculoskeletal History: No Pertinent History GI Medical History: No Pertinent History, Other History: No Pertinent History Psycho-Social History: No Pertinent History Female Reproductive Disorders: No Pertinent History Other Medical History: ciliac - Past Surgical History Past Surgical History: No Other Surgical History: EGD 2019 - Social History Smoking Status: Never smoker Exposure to second hand smoke: Yes Drug Use: none Patient Lives Alone: No - Female History Hx Last Menstrual Period: august 09 Hx Now: No - Nursing Vital Signs Nursing Vital Signs: Initial Vital Signs Temperature 98.1 F 09/02/20 14:46 Pulse Rate 119 H 09/02/20 14:46 Respiratory Rate 20 09/02/20 14:46 Blood Pressure 208/105 09/02/20 14:46 O2 Sat by Pulse Oximetry 99 09/02/20 14:46 Pain Scale Pain Intensity 5 - Physical Exam General Appearance: no apparent distress, alert Eye Exam: PERRL/EOMI, eyes nml inspection Ears, Nose, Throat Exam: normal ENT inspection, pharynx normal, moist mucous mem branes Neck Exam: normal inspection, non-tender, supple, full range of motion Respiratory Exam: normal breath sounds, lungs clear, No respiratory distress Cardiovascular Exam: regular rate/rhythm, normal heart sounds Gastrointestinal/Abdomen Exam: soft, No tenderness, No mass Back Exam: normal inspection, normal range of motion, No CVA tenderness, No vertebral tenderness Extremity Exam: normal inspection, normal range of motion, pelvis stable Neurologic Exam: alert, oriented x 3, cooperative, normal mood/affect, nml cer ebellar function, sensation nml, No motor deficits Skin Exam: normal color, warm, dry SpO2: 96 - Course Nursing assessment & vital signs reviewed: Yes - Radiology Exams Abdomen X-ray Interpretation: Interpreted by me, Other (Acute abdominal series negative) Ordered Tests: Active Orders 24 hr Category Date Time Status IV Insertion STAT Care 09/02/20 14:54 Active OBSTR/ACUTE ABDOMEN SERIES Stat Exams 09/02/20 14:55 Taken AMYLASE Stat Lab 09/02/20 15:10 Completed CBC W DIFF Stat Lab 09/02/20 15:10 Completed CMP Stat Lab 09/02/20 15:10 Completed LIPASE Stat Lab 09/02/20 15:10 Completed Lactic Acid Stat Lab 09/02/20 15:11 Completed PROTIME WITH INR Stat Lab 09/02/20 15:10 Completed UA W/RFX UR CULTURE Stat Lab 09/02/20 15:03 Completed Urine Triage Profile Stat Lab 09/02/20 15:03 Completed Medication Summary Discontinued Medications Generic Name Dose Route Start Last Admin Trade Name Freq PRN Reason Stop Dose Admin Hydromorphone HCl 1 mg 09/02/20 14:54 09/02/20 15:40 Hydromorphone 1 Mg/Ml Injection IV 09/02/20 14:55 1 mg STAT ONE Administration Hydromorphone HCl Confirm 09/02/20 15:24 Hydromorphone 1 Mg/Ml Injection Administered 09/02/20 15:25 Dose 1 mg .ROUTE .STK-MED ONE Sodium Chloride 1,000 mls @ 999 mls/hr 09/02/20 14:54 09/02/20 15:31 Sodium Chloride 0.9% 1000 Ml IV 09/02/20 15:54 999 mls/hr .Q1H1M STA Administration Sodium Chloride Confirm 09/02/20 15:25 Sodium Chloride 0.9% 1000 Ml Administered 09/02/20 15:26 Dose 1,000 mls @ ud .ROUTE .STK-MED ONE Ondansetron HCl 4 mg 09/02/20 14:54 09/02/20 15:40 Zofran 4 Mg/2 Ml Vial IV 09/02/20 14:55 4 mg STAT ONE Administration Ondansetron HCl Confirm 09/02/20 15:24 Zofran 4 Mg/2 Ml Vial Administered 09/02/20 15:25 Dose 4 mg .ROUTE .STK-MED ONE Pantoprazole Sodium 40 mg 09/02/20 14:54 09/02/20 15:40 Protonix 40 Mg Iv IV 09/02/20 14:55 40 mg STAT ONE Administration Pantoprazole Sodium Confirm 09/02/20 15:24 Protonix 40 Mg Iv Administered 09/02/20 15:25 Dose 40 mg IV .STK-MED ONE Prochlorperazine Edisylate 5 mg 09/02/20 14:54 09/02/20 15:40 Compazine 10 Mg/2 Ml IV 09/02/20 14:55 5 mg STAT ONE Administration Prochlorperazine Edisylate Confirm 09/02/20 15:25 Compazine 10 Mg/2 Ml Administered 09/02/20 15:26 Dose 10 mg .ROUTE .STK-MED ONE Lab/Rad Data: Laboratory Result Diagrams 09/02/20 15:10 09/02/20 15:10 Laboratory Results 09/02/20 09/02/20 09/02/20 Range/Units 15:11 15:10 15:10 WBC (4.0-10.5) K/mm3 RBC (4.1-5.4) M/mm3 Hgb (12.0-16.0) gm/dl Hct (35-47) % MCV (78-100) fl MCH (26-32) pg MCHC (32-36) g/dl RDW (11.5-14.0) % Plt Count (150-450) K/mm3 MPV (7.5-11.0) fl Gran % (36.0-66.0) % Eos # (Auto) (0-0.5) Absolute Lymphs (auto) (1.0-4.6) Absolute Monos (auto) (0.0-1.3) Lymphocytes % (24.0-44.0) % Monocytes % (0.0-12.0) % Eosinophils % (0.00-5.0) % Basophils % (0.0-0.4) % Absolute Granulocytes (1.4-6.9) Basophils # (0-0.4) PT 12.8 H (9.95-12.35) SECONDS INR 1.13 (0.8-3.0) Sodium 133 L (137-145) mmol/L Potassium 4.1 (3.5-5.1) mmol/L Chloride 98 (98-107) mmol/L Carbon Dioxide 26 (22-30) mmol/L Anion Gap 12.8 (5-15) MEQ/L BUN 8 (7-17) mg/dL Creatinine 0.55 (0.52-1.04) mg/dL Estimated GFR > 60.0 ML/MIN Glucose 264 H (74-106) mg/dL Lactic Acid 1.4 (0.4-2.0) Calcium 9.6 (8.4-10.2) mg/dL Total Bilirubin 1.00 (0.2-1.3) mg/dL AST 34 (14-36) U/L ALT 49 H (0-35) U/L Alkaline Phosphatase 98 (38-126) U/L Serum Total Protein 7.6 (6.3-8.2) g/dL Albumin 4.3 (3.5-5.0) g/dL Amylase 47 (30-110) U/L Lipase 47 (23-300) U/L Urine Color (YELLOW) Urine Appearance (CLEAR) Urine pH (5-6) Ur Specific [place] (1.005-1.025) Urine Protein (Negative) Urine Ketones (NEGATIVE) Urine Blood (0-5) [place]/ul Urine Nitrite (NEGATIVE) Urine Bilirubin (NEGATIVE) Urine Urobilinogen (0-1) mg/dL Ur Leukocyte Esterase (NEGATIVE) Urine WBC (Auto) (0-5) /HPF Urine RBC (Auto) (0-2) /HPF U Epithel Cells (Auto) (FEW) /HPF Urine Bacteria (Auto) (NEGATIVE) /HPF Urine Culture Reflexed (NO) Urine Glucose (NEGATIVE) mg/dL Urine Opiates Level (NEGATIVE) Ur Methadone (NEGATIVE) Urine Barbiturates (NEGATIVE) Ur Phencyclidine (PCP) (NEGATIVE) Urine Amphetamine (NEGATIVE) U Benzodiazepine Level (NEGATIVE) Urine Cocaine (NEGATIVE) Urine Marijuana (THC) (NEGATIVE) Slides for Path Review 09/02/20 09/02/20 09/02/20 Range/Units 15:10 15:03 15:03 WBC 7.3 (4.0-10.5) K/mm3 RBC 4.87 (4.1-5.4) M/mm3 Hgb 10.4 L (12.0-16.0) gm/dl Hct 35.5 (35-47) % MCV 72.9 L (78-100) fl MCH 21.4 L (26-32) pg MCHC 29.3 L (32-36) g/dl RDW 17.1 H (11.5-14.0) % Plt Count 238 (150-450) K/mm3 MPV 9.1 (7.5-11.0) fl Gran % 88.1 H (36.0-66.0) % Eos # (Auto) 0.02 (0-0.5) Absolute Lymphs (auto) 0.48 L (1.0-4.6) Absolute Monos (auto) 0.34 (0.0-1.3) Lymphocytes % 6.6 L (24.0-44.0) % Monocytes % 4.7 (0.0-12.0) % Eosinophils % 0.3 (0.00-5.0) % Basophils % 0.3 (0.0-0.4) % Absolute Granulocytes 6.45 (1.4-6.9) Basophils # 0.02 (0-0.4) PT (9.95-12.35) SECONDS INR (0.8-3.0) Sodium (137-145) mmol/L Potassium (3.5-5.1) mmol/L Chloride (98-107) mmol/L Carbon Dioxide (22-30) mmol/L Anion Gap (5-15) MEQ/L BUN (7-17) mg/dL Creatinine (0.52-1.04) mg/dL Estimated GFR ML/MIN Glucose (74-106) mg/dL Lactic Acid (0.4-2.0) Calcium (8.4-10.2) mg/dL Total Bilirubin (0.2-1.3) mg/dL AST (14-36) U/L ALT (0-35) U/L Alkaline Phosphatase (38-126) U/L Serum Total Protein (6.3-8.2) g/dL Albumin (3.5-5.0) g/dL Amylase (30-110) U/L Lipase (23-300) U/L Urine Color YELLOW (YELLOW) Urine Appearance CLEAR (CLEAR) Urine pH 6.0 (5-6) Ur Specific [place] 1.009 (1.005-1.025) Urine Protein NEGATIVE (Negative) Urine Ketones MODERATE (NEGATIVE) Urine Blood NEGATIVE (0-5) Eddie/ul Urine Nitrite NEGATIVE (NEGATIVE) Urine Bilirubin NEGATIVE (NEGATIVE) Urine Urobilinogen NEGATIVE (0-1) mg/dL Ur Leukocyte Esterase NEGATIVE (NEGATIVE) Urine WBC (Auto) NONE (0-5) /HPF Urine RBC (Auto) 0-2 (0-2) /HPF U Epithel Cells (Auto) RARE (FEW) /HPF Urine Bacteria (Auto) NONE (NEGATIVE) /HPF Urine Culture Reflexed NO (NO) Urine Glucose >=500 (NEGATIVE) mg/dL Urine Opiates Level NEGATIVE (NEGATIVE) Ur Methadone NEGATIVE (NEGATIVE) Urine Barbiturates NEGATIVE (NEGATIVE) Ur Phencyclidine (PCP) NEGATIVE (NEGATIVE) Urine Amphetamine NEGATIVE (NEGATIVE) U Benzodiazepine Level NEGATIVE (NEGATIVE) Urine Cocaine NEGATIVE (NEGATIVE) Urine Marijuana (THC) NEGATIVE (NEGATIVE) Slides for Path Review YES - Progress Progress: improved - Departure Departure Disposition: Home Clinical Impression: Right upper quadrant abdominal pain Condition: Stable Critical Care Time: No Referrals: KARLA LANDA MD [Primary Care Provider] - Instructions: Acute Abdomen (Belly Pain), Adult (DC) Additional Instructions: Was instructed to return as an outpatient for ultrasound of the gallbladder as soon as possible Prescriptions: Oxycodone HCl/Acetaminophen [Percocet 5-325 mg Tablet] 1 each PO Q6H PRN PRN #12 tablet MDD 4 PRN Reason: Pain
--- NOTE | 2020-09-02 22:18 | XRAY ---
Indication: Abdomen pain and vomiting. Comparison: None 2 view abdomen nonacute and nonobstructed. Solid organs and osseous structures unremarkable. Single PA chest demonstrates normal heart and lungs with incidental right base calcified granuloma. Bony thorax intact. Impression: Negative abdomen. Nonacute 1 view chest with incidental old granulomatous disease.
== END 2020-09-02 17:12 | disposition home or self-care (01) ==
LOC: ED 14:40
DX: R10.11 Right upper quadrant pain (principal)
CPT/HCPCS: 36000; 36415; 74022; 80053; 80307; 81001; 82150; 83605; 83690; 85025; 85610; 96360; 96374; 96375; 99284; J1170; J2405

== ENCOUNTER 2021-09-26 01:02 | Emergency (ER) | payer OTHER ==
[2021-09-26] MEDS ORDERED: Zofran 4 MG/2 ML VIAL IV ONE (01:15)
[2021-09-26] MEDS ORDERED: Sodium Chloride 0.9% 1000 ML 1,000 ML IV STA ×2 (01:15→01:17)
[2021-09-26] MEDS ORDERED: Pepcid 20 MG VIAL IV ONE ×2 (01:15→02:00)
[2021-09-26] MEDS ORDERED: MORPHINE SULFATE 4 MG INJ IV ONE (01:15)
[2021-09-26] MEDS ORDERED: BENADRYL 50 MG/ML IV ONE (01:17)
--- NOTE | 2021-09-26 01:26 | ERPHSYRPT ---
- History of Present Illness Time Seen by Provider: 09/26/21 01:10 Historian: patient Exam Limitations: no limitations Patient Subjective Stated Complaint: vomiting x2 days, abd pain Triage Nursing Assessment: pt c/o lt lower abd pain and lt flank pain, vomiting x2 days, approx 5 times each day. Abd obese and soft with active bs x4 quad, tender on palpation to LLQ. Pt is currently on her period. Pt had a BM yesterday (09/25/21). Pt has not ate solid food x2 days, just liquids and popsicles. Pt denies cough, sob or chest pain. Physician History: Patient has had recurrence of her nausea and vomiting with left flank pain and abdominal pain over the past 2 days. She does have this issue over the past few months, intermittently and she has had 5 episodes of vomiting daily over the last 2 days, and she is unable to take her home medications due to this.. She states that she is not a surgical candidate to remove her gallbladder as the stones were not big enough. Patient waited at an emergency department waiting room in [place], [place] but did not want a wait any further so she came to this emergency department. Timing/Duration: day(s) (2) Activities at Onset: none Quality: aching, stabbing Abdominal Pain Onset Location: LLQ, flank Pain Radiation: LLQ, flank Severity of Pain-Max: severe Severity of Pain-Current: severe Modifying Factors: Improves With: nothing Associated Symptoms: nausea, vomiting, No chest pain, No diaphoresis, No diarrhea, No fatigue, No headache, No heartburn, No loss of appetite, No neck pain, No rash, No shortness of breath, No syncope, No weakness Allergies/Adverse Reactions: clindamycin Allergy (Mild, Verified 09/26/21 01:20) Blisters erythromycin base [Erythromycin Base] Allergy (Verified 09/26/21 01:20) Blisters ketorolac [From Toradol] Allergy (Verified 09/26/21 01:20) Lightheadedness Penicillins Allergy (Verified 09/26/21 01:20) Hives Home Medications: Lisinopril 10 mg [Zestril 10 MG] 20 mg PO DAILY 08/07/13 [History] Insulin Glargine,Hum.rec.anlog [Basaglar Kwikpen U-100] 90 unit SQ BID 10/29/16 [History] Insulin Lispro [Admelog Solostar] 38 units SQ TIDWMEALS 09/26/21 [History] Hx Tetanus, Diphtheria Vaccination/Date Given: No Hx Influenza Vaccination/Date Given: No Hx Pneumococcal Vaccination/Date Given: No Immunizations Up to Date: No Travel Risk - International Travel Have you traveled outside of the country in past 3 weeks: No - Coronavirus Screening Are you exhibiting any of the following symptoms?: No Symptoms: Vomiting/Diarrhea Close contact with a COVID-19 positive Pt in past 14-21 Days: No - Vaccine Status Have you recieved a Covid-19 vaccination: No - Past Medical History Pertinent Past Medical History: Yes Neurological History: No Pertinent History ENT History: No Pertinent History Cardiac History: Hypertension Respiratory History: No Pertinent History Endocrine Medical History: Diabetes Type I Musculoskeletal History: No Pertinent History GI Medical History: No Pertinent History, Other History: No Pertinent History Psycho-Social History: No Pertinent History Female Reproductive Disorders: No Pertinent History Other Medical History: celiac - Past Surgical History Past Surgical History: No Other Surgical History: EGD 2019 - Social History Smoking Status: Never smoker Exposure to second hand smoke: Yes Drug Use: none Patient Lives Alone: No - Female History Hx Last Menstrual Period: 09/23/21 Hx Now: No - Nursing Vital Signs Nursing Vital Signs: Initial Vital Signs Temperature 97.8 F 09/26/21 01:02 Pulse Rate 124 H 09/26/21 01:02 Respiratory Rate 20 09/26/21 01:02 Blood Pressure 184/136 09/26/21 01:02 O2 Sat by Pulse Oximetry 100 09/26/21 01:02 Pain Scale Pain Intensity 8 - Physical Exam General Appearance: no apparent distress, alert Eye Exam: PERRL/EOMI, eyes nml inspection, No scleral icterus, No pale conjunctivae Ears, Nose, Throat Exam: normal ENT inspection, pharynx normal, moist mucous membranes Neck Exam: normal inspection, non-tender, supple, full range of motion Respiratory Exam: normal breath sounds, lungs clear, No respiratory distress Cardiovascular Exam: regular rate/rhythm, normal heart sounds Gastrointestinal/Abdomen Exam: soft, normal bowel sounds, No tenderness, No mass, No guarding, No rebound Back Exam: normal inspection, normal range of motion, No CVA tenderness, No vertebral tenderness Extremity Exam: normal inspection, normal range of motion, pelvis stable Neurologic Exam: alert, oriented x 3, cooperative, 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 tested, normal mood/affect, sensation nml, No motor deficits, No motor weakness Skin Exam: normal color, warm, dry, No rash, No petechiae, No jaundice, No cyanosis SpO2 Interpretation: normal SpO2: 100 O2 Delivery: Room Air - Course Nursing assessment & vital signs reviewed: Yes Ordered Tests: Active Orders 24 hr Category Date Time Status IV Insertion STAT Care 09/26/21 01:15 Active CBC W DIFF Stat Lab 09/26/21 01:34 Completed CMP Stat Lab 09/26/21 01:34 Completed CULTURE,URINE Stat Lab 09/26/21 01:35 Received HCG,QUALITATIVE URINE Stat Lab 09/26/21 01:24 Completed LIPASE Stat Lab 09/26/21 01:34 Completed PROTIME WITH INR Stat Lab 09/26/21 01:34 Completed TROPONIN Q3H Lab 09/26/21 01:34 Completed TROPONIN Q3H Lab 09/26/21 04:15 Ordered TROPONIN Q3H Lab 09/26/21 07:15 Ordered TROPONIN Q3H Lab 09/26/21 10:15 Ordered TROPONIN Q3H Lab 09/26/21 13:15 Ordered UA W/RFX CULTURE Stat Lab 09/26/21 01:35 Completed Urine Triage Profile Stat Lab 09/26/21 01:24 Completed Medication Summary Discontinued Medications Generic Name Dose Route Start Last Admin Trade Name Freq PRN Reason Stop Dose Admin Diphenhydramine HCl 50 mg 09/26/21 01:17 09/26/21 02:05 Diphenhydramine Hcl 50 Mg/Ml Vial IV 09/26/21 01:18 50 mg STAT ONE Administration Diphenhydramine HCl Confirm 09/26/21 02:00 Diphenhydramine Hcl 50 Mg/Ml Vial Administered 09/26/21 02:01 Dose 50 mg .ROUTE .STK-MED ONE Famotidine 20 mg 09/26/21 01:15 09/26/21 02:04 Famotidine 20 Mg/1 Vial IV 09/26/21 01:16 20 mg STAT ONE Administration Famotidine Confirm 09/26/21 02:00 Famotidine 20 Mg/1 Vial Administered 09/26/21 02:01 Dose 20 mg IV .STK-MED ONE Sodium Chloride 1,000 mls @ 999 mls/hr 09/26/21 01:15 09/26/21 03:09 Sodium Chloride 0.9% 1000 Ml IV 09/26/21 02:15 999 mls/hr .Q1H1M STA Administration Sodium Chloride 1,000 mls @ 999 mls/hr 09/26/21 01:17 09/26/21 02:04 Sodium Chloride 0.9% 1000 Ml IV 09/26/21 02:17 999 mls/hr .Q1H1M STA Administration Sodium Chloride Confirm 09/26/21 02:01 Sodium Chloride 0.9% 1000 Ml Administered 09/26/21 02:02 Dose 1,000 mls @ ud .ROUTE .STK-MED ONE Sodium Chloride Confirm 09/26/21 03:09 Sodium Chloride 0.9% 1000 Ml Administered 09/26/21 03:10 Dose 1,000 mls @ ud .ROUTE .STK-MED ONE Morphine Sulfate 4 mg 09/26/21 01:15 09/26/21 02:04 Morphine Sulfate 4 Mg/Ml Injection IV 09/26/21 01:16 4 mg STAT ONE Administration Morphine Sulfate Confirm 09/26/21 02:01 Morphine Sulfate 4 Mg/Ml Injection Administered 09/26/21 02:02 Dose 4 mg .ROUTE .STK-MED ONE Ondansetron HCl 4 mg 09/26/21 01:15 09/26/21 02:04 Ondansetron Hcl 4 Mg/2 Ml Vial IV 09/26/21 01:16 4 mg STAT ONE Administration Ondansetron HCl Confirm 09/26/21 02:00 Ondansetron Hcl 4 Mg/2 Ml Vial Administered 09/26/21 02:01 Dose 4 mg .ROUTE .STK-MED ONE Lab/Rad Data: Laboratory Result Diagrams 09/26/21 01:34 09/26/21 01:34 Laboratory Results 09/26/21 09/26/21 09/26/21 Range/Units 01:35 01:34 01:34 WBC (4.0-10.5) x10^3/uL RBC (4.1-5.4) x10^6/uL Hgb (12.0-16.0) g/dL Hct (35-47) % MCV (78-100) fL MCH (26-32) pg MCHC (32-36) g/dL RDW (11.5-14.0) % Plt Count (150-450) x10^3/uL MPV (7.5-11.0) fL Gran % (36.0-66.0) % Immature Gran % (Auto) (0.00-0.4) % Nucleat RBC Rel Count (0.00-0.1) % Eos # (Auto) (0-0.5) x10^3/uL Immature Gran # (Auto) (0.00-0.03) x10^3u/L Absolute Lymphs (auto) (1.0-4.6) x10^3/uL Absolute Monos (auto) (0.0-1.3) x10^3/uL Absolute Nucleated RBC (0.00-0.01) x10^3u/L Lymphocytes % (24.0-44.0) % Monocytes % (0.0-12.0) % Eosinophils % (0.00-5.0) % Basophils % (0.0-0.4) % Absolute Granulocytes (1.4-6.9) x10^3/uL Basophils # (0-0.4) x10^3/uL PT 10.3 (9.4-12.5) SECONDS INR 0.97 (0.8-3.0) Sodium 134 L (137-145) mmol/L Potassium 4.0 (3.5-5.1) mmol/L Chloride 100 (98-107) mmol/L Carbon Dioxide 26 (22-30) mmol/L Anion Gap 12.9 (5-15) MEQ/L BUN 7 (7-17) mg/dL Creatinine 0.47 L (0.52-1.04) mg/dL Estimated GFR > 60.0 ML/MIN Glucose 238 H (74-106) mg/dL Calcium 9.2 (8.4-10.2) mg/dL Total Bilirubin 0.80 (0.2-1.3) mg/dL AST 26 (14-36) U/L ALT 31 (0-35) U/L Alkaline Phosphatase 98 (38-126) U/L Troponin I (0.000-0.034) ng/mL Serum Total Protein 7.0 (6.3-8.2) g/dL Albumin 3.9 (3.5-5.0) g/dL Lipase 76 (23-300) U/L Urinalys Dipstick Clnc MAIN LAB Urine Color RED (YELLOW) Urine Appearance CLOUDY (CLEAR) Urine pH 7.5 (5-6) Ur Specific [place] 1.020 (1.005-1.025) POC Urine Protein Conf 100 (Negative) Urine Ketones NEGATIVE (NEGATIVE) Urine Nitrite NEGATIVE (NEGATIVE) Urine Bilirubin NEGATIVE (NEGATIVE) Urine Urobilinogen 0.2 (0-1) mg/dL Urine Leukocytes NEGATIVE (NEGATIVE) Urine WBC (Auto) 0-2 (0-5) /HPF Urine RBC (Auto) >101 (0-2) /HPF U Epithel Cells (Auto) RARE (FEW) /HPF Urine Bacteria (Auto) NONE SEEN (NEGATIVE) /HPF Urine RBC LARGE (0-5) Eddie/ul Unidentified Crystals >100 (NEGATIVE) /HPF Ur Culture Indicated? YES Urine Glucose 500 (NEGATIVE) mg/dL Urine HCG, Qual (Negative) Urine Opiates Level (NEGATIVE) Ur Methadone (NEGATIVE) Urine Barbiturates (NEGATIVE) Ur Phencyclidine (PCP) (NEGATIVE) Urine Amphetamine (NEGATIVE) U Benzodiazepine Level (NEGATIVE) Urine Cocaine (NEGATIVE) Urine Marijuana (THC) (NEGATIVE) 09/26/21 09/26/21 09/26/21 Range/Units 01:34 01:34 01:24 WBC 9.2 (4.0-10.5) x10^3/uL RBC 5.54 H (4.1-5.4) x10^6/uL Hgb 11.8 L (12.0-16.0) g/dL Hct 41.8 (35-47) % MCV 75.5 L (78-100) fL MCH 21.3 L (26-32) pg MCHC 28.2 L (32-36) g/dL RDW 17.2 H (11.5-14.0) % Plt Count 252 (150-450) x10^3/uL MPV 8.7 (7.5-11.0) fL Gran % 87.7 H (36.0-66.0) % Immature Gran % (Auto) 0.3 (0.00-0.4) % Nucleat RBC Rel Count 0.0 (0.00-0.1) % Eos # (Auto) 0.03 (0-0.5) x10^3/uL Immature Gran # (Auto) 0.03 (0.00-0.03) x10^3u/L Absolute Lymphs (auto) 0.64 L (1.0-4.6) x10^3/uL Absolute Monos (auto) 0.41 (0.0-1.3) x10^3/uL Absolute Nucleated RBC 0.00 (0.00-0.01) x10^3u/L Lymphocytes % 7.0 L (24.0-44.0) % Monocytes % 4.5 (0.0-12.0) % Eosinophils % 0.3 (0.00-5.0) % Basophils % 0.2 (0.0-0.4) % Absolute Granulocytes 8.07 H (1.4-6.9) x10^3/uL Basophils # 0.02 (0-0.4) x10^3/uL PT (9.4-12.5) SECONDS INR (0.8-3.0) Sodium (137-145) mmol/L Potassium (3.5-5.1) mmol/L Chloride (98-107) mmol/L Carbon Dioxide (22-30) mmol/L Anion Gap (5-15) MEQ/L BUN (7-17) mg/dL Creatinine (0.52-1.04) mg/dL Estimated GFR ML/MIN Glucose (74-106) mg/dL Calcium (8.4-10.2) mg/dL Total Bilirubin (0.2-1.3) mg/dL AST (14-36) U/L ALT (0-35) U/L Alkaline Phosphatase (38-126) U/L Troponin I 0.012 (0.000-0.034) ng/mL Serum Total Protein (6.3-8.2) g/dL Albumin (3.5-5.0) g/dL Lipase (23-300) U/L Urinalys Dipstick Clnc Urine Color (YELLOW) Urine Appearance (CLEAR) Urine pH (5-6) Ur Specific [place] (1.005-1.025) POC Urine Protein Conf (Negative) Urine Ketones (NEGATIVE) Urine Nitrite (NEGATIVE) Urine Bilirubin (NEGATIVE) Urine Urobilinogen (0-1) mg/dL Urine Leukocytes (NEGATIVE) Urine WBC (Auto) (0-5) /HPF Urine RBC (Auto) (0-2) /HPF U Epithel Cells (Auto) (FEW) /HPF Urine Bacteria (Auto) (NEGATIVE) /HPF Urine RBC (0-5) Eddie/ul Unidentified Crystals (NEGATIVE) /HPF Ur Culture Indicated? Urine Glucose (NEGATIVE) mg/dL Urine HCG, Qual NEGATIVE (Negative) Urine Opiates Level (NEGATIVE) Ur Methadone (NEGATIVE) Urine Barbiturates (NEGATIVE) Ur Phencyclidine (PCP) (NEGATIVE) Urine Amphetamine (NEGATIVE) U Benzodiazepine Level (NEGATIVE) Urine Cocaine (NEGATIVE) Urine Marijuana (THC) (NEGATIVE) 09/26/21 Range/Units 01:24 WBC (4.0-10.5) x10^3/uL RBC (4.1-5.4) x10^6/uL Hgb (12.0-16.0) g/dL Hct (35-47) % MCV (78-100) fL MCH (26-32) pg MCHC (32-36) g/dL RDW (11.5-14.0) % Plt Count (150-450) x10^3/uL MPV (7.5-11.0) fL Gran % (36.0-66.0) % Immature Gran % (Auto) (0.00-0.4) % Nucleat RBC Rel Count (0.00-0.1) % Eos # (Auto) (0-0.5) x10^3/uL Immature Gran # (Auto) (0.00-0.03) x10^3u/L Absolute Lymphs (auto) (1.0-4.6) x10^3/uL Absolute Monos (auto) (0.0-1.3) x10^3/uL Absolute Nucleated RBC (0.00-0.01) x10^3u/L Lymphocytes % (24.0-44.0) % Monocytes % (0.0-12.0) % Eosinophils % (0.00-5.0) % Basophils % (0.0-0.4) % Absolute Granulocytes (1.4-6.9) x10^3/uL Basophils # (0-0.4) x10^3/uL PT (9.4-12.5) SECONDS INR (0.8-3.0) Sodium (137-145) mmol/L Potassium (3.5-5.1) mmol/L Chloride (98-107) mmol/L Carbon Dioxide (22-30) mmol/L Anion Gap (5-15) MEQ/L BUN (7-17) mg/dL Creatinine (0.52-1.04) mg/dL Estimated GFR ML/MIN Glucose (74-106) mg/dL Calcium (8.4-10.2) mg/dL Total Bilirubin (0.2-1.3) mg/dL AST (14-36) U/L ALT (0-35) U/L Alkaline Phosphatase (38-126) U/L Troponin I (0.000-0.034) ng/mL Serum Total Protein (6.3-8.2) g/dL Albumin (3.5-5.0) g/dL Lipase (23-300) U/L Urinalys Dipstick Clnc Urine Color (YELLOW) Urine Appearance (CLEAR) Urine pH (5-6) Ur Specific [place] (1.005-1.025) POC Urine Protein Conf (Negative) Urine Ketones (NEGATIVE) Urine Nitrite (NEGATIVE) Urine Bilirubin (NEGATIVE) Urine Urobilinogen (0-1) mg/dL Urine Leukocytes (NEGATIVE) Urine WBC (Auto) (0-5) /HPF Urine RBC (Auto) (0-2) /HPF U Epithel Cells (Auto) (FEW) /HPF Urine Bacteria (Auto) (NEGATIVE) /HPF Urine RBC (0-5) Eddie/ul Unidentified Crystals (NEGATIVE) /HPF Ur Culture Indicated? Urine Glucose (NEGATIVE) mg/dL Urine HCG, Qual (Negative) Urine Opiates Level NEGATIVE (NEGATIVE) Ur Methadone NEGATIVE (NEGATIVE) Urine Barbiturates NEGATIVE (NEGATIVE) Ur Phencyclidine (PCP) NEGATIVE (NEGATIVE) Urine Amphetamine NEGATIVE (NEGATIVE) U Benzodiazepine Level NEGATIVE (NEGATIVE) Urine Cocaine NEGATIVE (NEGATIVE) Urine Marijuana (THC) NEGATIVE (NEGATIVE) - Progress Progress: improved Progress Note: 09/26/21 03:05 Patient feels much better and her tachycardia has resolved on the monitor; she has no further nausea or any pain at all. That we will do another liter of fluids and then discharge her home if she continues to feel well 09/26/21 03:25 Patient is doing well and continue IV hydration. Patient has no concerning abdominal findings or anything concerning urologic min that requires inpatient admission or consultation with general or urologic surgery at this time. Patient will be discharged home to follow-up with her primary care provider to continue evaluation of her issues and explained her to start taking her antihypertensive medications and I will send home with short supply of Zofran so this will enable her. Patient does not require transfer at this time either as she has no acute abdominal, urologic or any other gynecologic surgical issues or any other abnormal metabolic issues that require further monitoring and treatment as an inpatient at this time. Counseled pt/family regarding: lab results, diagnosis, need for follow-up - Departure Departure Disposition: Home Clinical Impression: Nausea and vomiting, Left flank pain, Essential hypertension Condition: Good Critical Care Time: No Referrals: KARLA LANDA MD [Primary Care Provider] - Follow up/PCP as directed Instructions: Acute Abdomen (Belly Pain), Adult (DC), Nausea and Vomiting, Adult (DC) Additional Instructions: Return to the nearest emergency department if you have any new fever, new localized abdominal pain, uncontrollable vomiting, new chest pain, new shortness of breath, new skin rash, new blood in her stool, new vomiting blood or any other concerning signs or symptoms that were not present at today's emergency room visit for immediate evaluation in the nearest emergency department Prescriptions: Ondansetron ODT 4 MG [Zofran Odt 4 mg] 4 mg PO Q8H PRN PRN #10 tablet PRN Reason: Nausea
[2021-09-26 01:37] LABS: Absolute Neutrophil Ct (ANC) 8.07 x10^3/uL (1.4-6.9); Basophil (Absolute #) 0.02 x10^3/uL (0-0.4); Eosinophil % 0.3 % (0.00-5.0); Eosinophil (Absolute #) 0.03 x10^3/uL (0-0.5); Hematocrit 41.8 % (35-47); Hemoglobin 11.8 g/dL (12.0-16.0); Lymphocyte (Absolute #) 0.64 x10^3/uL (1.0-4.6); Mean Cell Volume 75.5 fL (78-100); Mean Corpuscular Hemoglobin 21.3 pg (26-32); Mean Corpuscular Hgb Concent. 28.2 g/dL (32-36); Mean Platelet Volume 8.7 fL (7.5-11.0); Monocyte (Absolute #) 0.41 x10^3/uL (0.0-1.3); Monocytes % 4.5 % (0.0-12.0); Neutrophil % 87.7 % (36.0-66.0); Platelet Count 252 x10^3/uL (150-450); Red Blood Count 5.54 x10^6/uL (4.1-5.4); Red Cell Distribution Width 17.2 % (11.5-14.0); White Blood Count 9.2 x10^3/uL (4.0-10.5)
[2021-09-26 01:43] LABS: Appearance CLOUDY (CLEAR); Bilirubin NEGATIVE (NEGATIVE); Glucose 500 mg/dL (NEGATIVE); Ketones NEGATIVE (NEGATIVE); Nitrite NEGATIVE (NEGATIVE); Ph 7.5 (5-6); Protein,Urine Dip 100 (Negative); RBC LARGE Ery/ul (0-5); Urobilinogen 0.2 mg/dL (0-1)
[2021-09-26 01:44] LABS: Dipstick done @ ? MAIN LAB
[2021-09-26 01:45] LABS: Crystals Unidentified >100 /HPF (NEGATIVE); Epithelial Cells RARE /HPF (FEW); WBC 0-2 /HPF (0-5)
[2021-09-26 01:46] LABS: Bacteria NONE SEEN /HPF (NEGATIVE); RBC >101 /HPF (0-2)
[2021-09-26 01:47] LABS: Urine Cultured Indicated? YES
[2021-09-26 01:50] LABS: INR 0.97 (0.8-3.0); PROTIME 10.3 SECONDS (9.4-12.5)
[2021-09-26 01:55] LABS: ALBUMIN 3.9 g/dL (3.5-5.0); ALKALINE PHOSPHATASE 98 U/L (38-126); ANION GAP 12.9 MEQ/L (5-15); BLOOD UREA NITROGEN 7 mg/dL (7-17); CHLORIDE 100 mmol/L (98-107); Calcium 9.2 mg/dL (8.4-10.2); Carbon Dioxide 26 mmol/L (22-30); Creatinine 1 0.47 mg/dL (0.52-1.04); EST GLOMERULAR FILTRATION RATE > 60.0 ML/MIN; Glucose 238 mg/dL (74-106); LIPASE 76 U/L (23-300); SGOT/AST 26 U/L (14-36); SGPT/ALT 31 U/L (0-35); SODIUM 134 mmol/L (137-145)
[2021-09-26 01:59] LABS: Amphetamine,Urine NEGATIVE (NEGATIVE); Barbiturate,Urine NEGATIVE (NEGATIVE); Benzodiazepine,Urine NEGATIVE (NEGATIVE); Cocaine,Urine NEGATIVE (NEGATIVE); Methadone,Urine NEGATIVE (NEGATIVE); Opiate,Urine NEGATIVE (NEGATIVE); PCP,Urine NEGATIVE (NEGATIVE); THC,Urine NEGATIVE (NEGATIVE)
[2021-09-26] MEDS ORDERED: Zofran 4 MG/2 ML VIAL ONE (02:00)
[2021-09-26] MEDS ORDERED: BENADRYL 50 MG/ML ONE (02:00)
[2021-09-26] MEDS ORDERED: Sodium Chloride 0.9% 1000 ML 1,000 ML ONE ×2 (02:01→03:09)
[2021-09-26] MEDS ORDERED: MORPHINE SULFATE 4 MG INJ ONE (02:01)
[2021-09-26 03:39] LABS: Slide Review 1 YES
[2021-09-26 04:20] VITALS: BP 149/68; PULSE 78; O2SAT 96
== END 2021-09-26 04:20 | disposition home or self-care (01) ==
LOC: ED 01:02
DX: R11.2 Nausea with vomiting, unspecified (principal); R10.32 Left lower quadrant pain; I10 Essential (primary) hypertension; E10.9 Type 1 diabetes mellitus without complications; Z79.4 Long term (current) use of insulin
CPT/HCPCS: 36000; 36415; 80053; 80307; 81015; 83690; 84484; 84703; 85025; 85610; 87086; 96374; 96375; 99284; J1200; J2270; J2405

== ENCOUNTER 2021-09-27 07:45 | Emergency (ER) | payer OTHER ==
[2021-09-27 08:06] VITALS: O2SAT 98
[2021-09-27] MEDS ORDERED: Nubain 10 MG/ML IM ONE (08:17)
[2021-09-27] MEDS ORDERED: Compazine 10 MG/2 ML IM PRN (08:27)
[2021-09-27 08:37] LABS: Appearance CLEAR (CLEAR); Glucose NEGATIVE (NEGATIVE)
[2021-09-27 08:38] LABS: Bilirubin NEGATIVE (NEGATIVE); Dipstick done @ ? MAIN LAB; Ketones NEGATIVE (NEGATIVE); Mucus SLIGHT /HPF (NEGATIVE); Nitrite NEGATIVE (NEGATIVE); Protein,Urine Dip NEGATIVE (Negative); RBC LARGE Ery/ul (0-5); Specific Gravity 1.015 (1.005-1.025); Urobilinogen 0.2 mg/dL (0-1)
[2021-09-27 08:40] LABS: Bacteria FEW /HPF (NEGATIVE); Epithelial Cells FEW /HPF (FEW); Urine Cultured Indicated? NO
[2021-09-27] MEDS ORDERED: Nubain 10 MG/ML ONE (08:55)
[2021-09-27] MEDS ORDERED: Compazine 10 MG/2 ML ONE (08:56)
--- NOTE | 2021-09-27 09:06 | ERPHSYRPT ---
- History of Present Illness Time Seen by Provider: 09/27/21 08:05 Historian: patient Exam Limitations: no limitations Patient Subjective Stated Complaint: Pt has been vomiting and having left flank pain that has moved to her left abdomen since Thursday Triage Nursing Assessment: Pt brought to the ER by her , hypertensive, rates abdominal and flank pain as a 01/18, was in this ER early yesterday morning and did not receive a CT for the same problem and has returned due to worsening pain and vomiting, skin n/w/d, pain w/palpatation to the left flank and left quadrants and mid upper and lower abdomen, pain since Thursday, denies pain with u rination, pulses normal, hasn't had any food since Thursday Timing/Duration: yesterday Activities at Onset: none Quality: cramping Abdominal Pain Onset Location: LUQ, LLQ Pain Radiation: LUQ, LLQ Severity of Pain-Max: moderate Severity of Pain-Current: moderate Modifying Factors: Improves With: nothing Associated Symptoms: loss of appetite, nausea Previous symptoms: same symptoms as today, recently seen (Seen yest for this, Rx zofran, preg neg, no CT done), recently treated Allergies/Adverse Reactions: clindamycin Allergy (Mild, Verified 09/27/21 08:06) Blisters erythromycin base [Erythromycin Base] Allergy (Verified 09/27/21 08:06) Blisters ketorolac [From Toradol] Allergy (Verified 09/27/21 08:06) Lightheadedness Penicillins Allergy (Verified 09/27/21 08:06) Hives Home Medications: Lisinopril 10 mg [Zestril 10 MG] 20 mg PO DAILY 08/07/13 [History] Insulin Glargine,Hum.rec.anlog [Basaglar Kwikpen U-100] 90 unit SQ BID 10/29/16 [History] Insulin Lispro [Admelog Solostar] 38 units SQ TIDWMEALS 09/26/21 [History] Hx Tetanus, Diphtheria Vaccination/Date Given: No Hx Influenza Vaccination/Date Given: No Hx Pneumococcal Vaccination/Date Given: No Travel Risk - International Travel Have you traveled outside of the country in past 3 weeks: No - Coronavirus Screening Are you exhibiting any of the following symptoms?: Yes Symptoms: Vomiting/Diarrhea Close contact with a COVID-19 positive Pt in past 14-21 Days: No - Vaccine Status Have you recieved a Covid-19 vaccination: No - Review of Systems Constitutional: No Symptoms Eyes: No Symptoms Ears, Nose, & Throat: No Symptoms Respiratory: No Symptoms, Stridor Abdominal/Gastrointestinal: Abdominal Pain, Nausea Genitourinary Symptoms: No Symptoms Musculoskeletal: No Symptoms Skin: No Symptoms Neurological: No Symptoms Psychological: No Symptoms Endocrine: No Symptoms Hematologic/Lymphatic: No Symptoms Immunological/Allergic: No Symptoms All Other Systems: Reviewed and Negative - Past Medical History Pertinent Past Medical History: Yes Neurological History: No Pertinent History ENT History: No Pertinent History Cardiac History: Hypertension Respiratory History: No Pertinent History Endocrine Medical History: Diabetes Type I Musculoskeletal History: No Pertinent History GI Medical History: No Pertinent History, Other History: No Pertinent History Psycho-Social History: No Pertinent History Female Reproductive Disorders: No Pertinent History Other Medical History: celiac - Past Surgical History Past Surgical History: No Other Surgical History: . - Social History Smoking Status: Never smoker Exposure to second hand smoke: Yes Drug Use: none Patient Lives Alone: No - Female History Hx Last Menstrual Period: 09/23/2021 Hx Now: No - Nursing Vital Signs Nursing Vital Signs: Initial Vital Signs Temperature 97.8 F 09/27/21 07:57 Pulse Rate 99 H 09/27/21 07:57 Blood Pressure 179/113 09/27/21 07:57 O2 Sat by Pulse Oximetry 98 09/27/21 07:57 Pain Scale Pain Intensity 9 - Physical Exam General Appearance: mild distress, alert, anxiety, obese Eye Exam: PERRL/EOMI Ears, Nose, Throat Exam: normal ENT inspection Neck Exam: normal inspection, non-tender Respiratory Exam: normal breath sounds Cardiovascular Exam: regular rate/rhythm, normal heart sounds Gastrointestinal/Abdomen Exam: soft, normal bowel sounds, tenderness (Left upper to lower abdomen, mild, no guarding) Pelvic Exam: deferred Rectal Exam: deferred Back Exam: normal inspection, normal range of motion Extremity Exam: normal inspection, normal range of motion Neurologic Exam: alert, oriented x 3, cooperative Skin Exam: normal color SpO2 Interpretation: normal SpO2: 98 O2 Delivery: Room Air - Course Nursing assessment & vital signs reviewed: Yes - CT Exams Abdomen/Pelvis CT Interpretation: Tele-radiologist Report, Other (no ureteral stones, right ovarian cyst, o/w neg) Ordered Tests: Active Orders 24 hr Category Date Time Status ABDOMEN AND PELVIS W/0 CONTRAS [CT] Stat Exams 09/27/21 08:45 Completed CBC W DIFF Stat Lab 09/27/21 09:00 Completed CMP Stat Lab 09/27/21 09:00 Completed UA W/RFX CULTURE Stat Lab 09/27/21 08:25 Completed Medication Summary Generic Name Dose Route Start Last Admin Trade Name Freq PRN Reason Stop Dose Admin Prochlorperazine Edisylate 10 mg 09/27/21 08:27 09/27/21 08:56 Prochlorperazine Edisylate 10 Mg/2 Ml Vial IM 10/27/21 08:26 10 mg Q6H PRN PRN Administration NAUSEA/VOMITING Discontinued Medications Generic Name Dose Route Start Last Admin Trade Name Freq PRN Reason Stop Dose Admin Nalbuphine HCl 10 mg 09/27/21 08:17 09/27/21 08:56 Nalbuphine Hcl 10 Mg/Ml Ampul IM 09/27/21 08:18 10 mg STAT ONE Administration Nalbuphine HCl Confirm 09/27/21 08:55 Nalbuphine Hcl 10 Mg/Ml Ampul Administered 09/27/21 08:56 Dose 10 mg .ROUTE .STK-MED ONE Lab/Rad Data: Laboratory Result Diagrams 09/27/21 09:00 09/27/21 09:00 Laboratory Results 09/27/21 09/27/21 09/27/21 Range/Units 09:00 09:00 08:25 WBC 7.8 (4.0-10.5) x10^3/uL RBC 4.93 (4.1-5.4) x10^6/uL Hgb 10.7 L (12.0-16.0) g/dL Hct 37.7 (35-47) % MCV 76.5 L (78-100) fL MCH 21.7 L (26-32) pg MCHC 28.4 L (32-36) g/dL RDW 17.2 H (11.5-14.0) % Plt Count 241 (150-450) x10^3/uL MPV 9.1 (7.5-11.0) fL Gran % 84.8 H (36.0-66.0) % Immature Gran % (Auto) 0.8 H (0.00-0.4) % Nucleat RBC Rel Count 0.0 (0.00-0.1) % Eos # (Auto) 0.06 (0-0.5) x10^3/uL Immature Gran # (Auto) 0.06 H (0.00-0.03) x10^3u/L Absolute Lymphs (auto) 0.64 L (1.0-4.6) x10^3/uL Absolute Monos (auto) 0.40 (0.0-1.3) x10^3/uL Absolute Nucleated RBC 0.00 (0.00-0.01) x10^3u/L Lymphocytes % 8.2 L (24.0-44.0) % Monocytes % 5.1 (0.0-12.0) % Eosinophils % 0.8 (0.00-5.0) % Basophils % 0.3 (0.0-0.4) % Absolute Granulocytes 6.62 (1.4-6.9) x10^3/uL Basophils # 0.02 (0-0.4) x10^3/uL Sodium 138 (137-145) mmol/L Potassium 3.8 (3.5-5.1) mmol/L Chloride 101 (98-107) mmol/L Carbon Dioxide 28 (22-30) mmol/L Anion Gap 12.5 (5-15) MEQ/L BUN 4 L (7-17) mg/dL Creatinine 0.52 (0.52-1.04) mg/dL Estimated GFR > 60.0 ML/MIN Glucose 166 H (74-106) mg/dL Calcium 9.1 (8.4-10.2) mg/dL Total Bilirubin 0.80 (0.2-1.3) mg/dL AST 28 (14-36) U/L ALT 32 (0-35) U/L Alkaline Phosphatase 82 (38-126) U/L Serum Total Protein 6.6 (6.3-8.2) g/dL Albumin 3.8 (3.5-5.0) g/dL Urinalys Dipstick Clnc MAIN LAB Urine Color YELLOW (YELLOW) Urine Appearance CLEAR (CLEAR) Urine pH 6.0 (5-6) Ur Specific [address] 1.015 (1.005-1.025) POC Urine Protein Conf NEGATIVE (Negative) Urine Ketones NEGATIVE (NEGATIVE) Urine Nitrite NEGATIVE (NEGATIVE) Urine Bilirubin NEGATIVE (NEGATIVE) Urine Urobilinogen 0.2 (0-1) mg/dL Urine Leukocytes NEGATIVE (NEGATIVE) Urine WBC (Auto) 3-5 (0-5) /HPF Urine RBC (Auto) 11-15 (0-2) /HPF U Epithel Cells (Auto) FEW (FEW) /HPF Urine Bacteria (Auto) FEW (NEGATIVE) /HPF Urine RBC LARGE (0-5) Eddie/ul Urine Mucus (Auto) SLIGHT (NEGATIVE) /HPF Ur Culture Indicated? NO Urine Glucose NEGATIVE (NEGATIVE) mg/dL Slides for Path Review YES - Progress Progress: improved Progress Note: 09/27/21 10:10 Better with pain med. BP better. Exam shows vague left side abd pain, work-up shows mild UTI, CT overall neg., low pain tolerance. Will Rx for UTI and have her monitor BP and recheck with PCP. Counseled pt/family regarding: lab results, diagnosis, need for follow-up, rad results - Departure Departure Disposition: Home Clinical Impression: UTI (urinary tract infection) Qualifiers: Urinary tract infection type: acute cystitis Hematuria presence: with hematuria Qualified Code(s): N30.01 - Acute cystitis with hematuria Condition: Stable Critical Care Time: No Referrals: KARLA LANDA MD [Primary Care Provider] - Follow up/PCP as directed Instructions: Acute Abdomen (Belly Pain), Adult (DC) Additional Instructions: Increase fluids. Take antibiotic. Recheck with your PCP Thursday. Monitor BP, if stays too high, take an extra lisinopril. Prescriptions: Nitrofurantoin Macrocrystal [Nitrofurantoin] 100 mg PO BID #14 Phenazopyridine HCl 200 mg [Pyridium 200 mg] 200 mg PO TID PRN 3 Days #15 tablet
--- NOTE | 2021-09-27 09:09 | XRAY ---
Indication: Left flank pain 5 days. Nausea. Multiple contiguous axial images obtained through the abdomen and pelvis without contrast using renal stone protocol. Comparison: August 28, 2020. Lung bases demonstrates stable right base calcified granuloma. No infiltrate or effusion. Heart not enlarged. Both kidneys again demonstrates a few faint micro-nephrocalcinosis without hydronephrosis or hydroureter. Noncontrasted stomach and bowel loops nonobstructed again with normal appendix. New 3.7 cm right ovary cyst. No free fluid/air. Stable tiny hepatic calcified granulomata. Spleen remains enlarged today measuring 14.6 cm. Remaining liver, gallbladder, pancreas, spleen, adrenal glands, kidneys, ureters, bladder, and uterus are unremarkable for noncontrast exam. Again minimal aortoiliac calcifications without AAA. Osseous structures intact. Impression: 1. Again a few nonobstructing faint bilateral micro-nephrocalcinosis. 2. New 3.7 cm right ovary cyst. 3. Again incidental 14.6 cm splenomegaly and old granulomatous disease. 4. Remaining CT abdomen/pelvis without contrast exam is negative.
[2021-09-27 09:17] LABS: Absolute Neutrophil Ct (ANC) 6.62 x10^3/uL (1.4-6.9); Basophil (Absolute #) 0.02 x10^3/uL (0-0.4); Eosinophil % 0.8 % (0.00-5.0); Eosinophil (Absolute #) 0.06 x10^3/uL (0-0.5); Hematocrit 37.7 % (35-47); Hemoglobin 10.7 g/dL (12.0-16.0); Lymphocyte (Absolute #) 0.64 x10^3/uL (1.0-4.6); Lymphocytes % 8.2 % (24.0-44.0); Mean Cell Volume 76.5 fL (78-100); Mean Corpuscular Hemoglobin 21.7 pg (26-32); Mean Corpuscular Hgb Concent. 28.4 g/dL (32-36); Mean Platelet Volume 9.1 fL (7.5-11.0); Monocytes % 5.1 % (0.0-12.0); Neutrophil % 84.8 % (36.0-66.0); Platelet Count 241 x10^3/uL (150-450); Red Blood Count 4.93 x10^6/uL (4.1-5.4); Red Cell Distribution Width 17.2 % (11.5-14.0); White Blood Count 7.8 x10^3/uL (4.0-10.5)
[2021-09-27 09:25] LABS: ALBUMIN 3.8 g/dL (3.5-5.0); ALKALINE PHOSPHATASE 82 U/L (38-126); ANION GAP 12.5 MEQ/L (5-15); BLOOD UREA NITROGEN 4 mg/dL (7-17); CHLORIDE 101 mmol/L (98-107); Calcium 9.1 mg/dL (8.4-10.2); Carbon Dioxide 28 mmol/L (22-30); Creatinine 1 0.52 mg/dL (0.52-1.04); EST GLOMERULAR FILTRATION RATE > 60.0 ML/MIN; Glucose 166 mg/dL (74-106); Potassium 3.8 mmol/L (3.5-5.1); SGOT/AST 28 U/L (14-36); SGPT/ALT 32 U/L (0-35); SODIUM 138 mmol/L (137-145); Total Protein 6.6 g/dL (6.3-8.2)
[2021-09-27 09:48] LABS: Slide Review 1 YES
[2021-09-27 10:21] VITALS: BP 133/59; PULSE 78
== END 2021-09-27 10:40 | disposition home or self-care (01) ==
LOC: ED 07:45
DX: N30.01 Acute cystitis with hematuria (principal); R11.2 Nausea with vomiting, unspecified; R10.12 Left upper quadrant pain; R10.32 Left lower quadrant pain; I10 Essential (primary) hypertension; E10.9 Type 1 diabetes mellitus without complications; Z79.4 Long term (current) use of insulin
CPT/HCPCS: 36415; 74176; 80053; 81015; 85025; 96372; 99284; J2300

== ENCOUNTER 2022-06-14 16:26 | Emergency (ER) | payer OTHER ==
[2022-06-14] MEDS ORDERED: Hydromorphone 1 mg/ml Injection IV ONE (16:53)
[2022-06-14] MEDS ORDERED: PROTONIX 40 MG IV IV ONE ×2 (16:53→17:35)
[2022-06-14] MEDS ORDERED: Sodium Chloride 0.9% 1000 ML 1,000 ML IV STA (16:53)
[2022-06-14] MEDS ORDERED: Zofran 4 MG/2 ML VIAL IV ONE (16:53)
[2022-06-14] MEDS ORDERED: Zofran 4 MG/2 ML VIAL ONE (17:35)
[2022-06-14] MEDS ORDERED: Hydromorphone 1 mg/ml Injection ONE (17:36)
[2022-06-14] MEDS ORDERED: Sodium Chloride 0.9% 1000 ML 1,000 ML ONE (17:36)
[2022-06-14 17:37] LABS: Absolute Neutrophil Ct (ANC) 7.73 x10^3/uL (1.4-6.9); BASOPHIL % 0.2 % (0.0-0.4); Basophil (Absolute #) 0.02 x10^3/uL (0-0.4); Eosinophil % 0.5 % (0.00-5.0); Eosinophil (Absolute #) 0.04 x10^3/uL (0-0.5); Hematocrit 41.4 % (35-47); Hemoglobin 12.3 g/dL (12.0-16.0); IMMATURE GRAN # 0.03 x10^3u/L (0.00-0.03); IMMATURE GRAN % 0.3 % (0.00-0.4); Lymphocyte (Absolute #) 0.57 x10^3/uL (1.0-4.6); Lymphocytes % 6.5 % (24.0-44.0); Mean Cell Volume 75.8 fL (78-100); Mean Corpuscular Hemoglobin 22.5 pg (26-32); Mean Corpuscular Hgb Concent. 29.7 g/dL (32-36); Monocyte (Absolute #) 0.32 x10^3/uL (0.0-1.3); Monocytes % 3.7 % (0.0-12.0); Neutrophil % 88.8 % (36.0-66.0); Platelet Count 260 x10^3/uL (150-450); Red Blood Count 5.46 x10^6/uL (4.1-5.4); Red Cell Distribution Width 15.6 % (11.5-14.0); White Blood Count 8.7 x10^3/uL (4.0-10.5)
[2022-06-14 17:44] LABS: Appearance Clear (Clear); Bacteria None Seen /HPF (None Seen); Bilirubin Negative (Negative); Blood Negative (Negative); Epithelial Cells None Seen /HPF (None Seen); Glucose, Urine 250 mg/dL (Negative); Hyaline Casts NONE SEEN /LPF (0-2); Ketones Negative (Negative); Leukocyte Esterase Negative (Negative); Nitrite Negative (Negative); Protein,Urine Dip Negative (Negative); RBC 0-2 /HPF (0-5); Urobilinogen 0.2 mg/dL (0.2); WBC 0-2 /HPF (0-5)
[2022-06-14 17:51] LABS: ALBUMIN 4.3 g/dL (3.5-5.0); ALKALINE PHOSPHATASE 113 U/L (38-126); AMYLASE 50 U/L (30-110); BLOOD UREA NITROGEN 10 mg/dL (7-17); CHLORIDE 99 mmol/L (98-107); Calcium 9.2 mg/dL (8.4-10.2); Carbon Dioxide 31 mmol/L (22-30); Creatinine 1 0.41 mg/dL (0.52-1.04); EST GLOMERULAR FILTRATION RATE > 60.0 ML/MIN; Glucose 253 mg/dL (74-106); LIPASE 32 U/L (23-300); Potassium 4.4 mmol/L (3.5-5.1); SGOT/AST 46 U/L (14-36); SGPT/ALT 36 U/L (0-35); SODIUM 136 mmol/L (137-145); Total Protein 7.7 g/dL (6.3-8.2)
[2022-06-14 17:54] LABS: ADD URINE CULTURE? NO (NO)
--- NOTE | 2022-06-14 18:37 | ERPHSYRPT ---
- History of Present Illness Historian: patient Exam Limitations: no limitations Patient Subjective Stated Complaint: pt here for abd pain to right side, and lower back pain for a couple days with vomiting Triage Nursing Assessment: pt alert, resp easy, face mask in place, skin w/d/p. abd soft, no edema noted Timing/Duration: day(s) (2), worse Activities at Onset: none Quality: cramping, sharpness, stabbing Abdominal Pain Onset Location: RUQ Pain Radiation: flank (Right) Severity of Pain-Max: moderate Severity of Pain-Current: moderate Modifying Factors: Improves With: vomiting Associated Symptoms: nausea, vomiting, No diarrhea, No fever/chills Previous symptoms: same symptoms as today Hx Tetanus, Diphtheria Vaccination/Date Given: No Hx Influenza Vaccination/Date Given: No Hx Pneumococcal Vaccination/Date Given: No Immunizations Up to Date: Yes <NESS CROFT - Last Filed: 06/14/22 18:52> <NIK STEELE - Last Filed: 06/14/22 20:10> - History of Present Illness Time Seen by Provider: 06/14/22 16:55 Physician History: Patient is a 36-year-old white female with complaint of abdominal pain. The pain is primarily in the right upper quadrant and radiates to the lower back. She has had nausea and vomiting x4 over the last 48 hours. She has been worse the last 12 hours she has had no fever chills sweats or diarrhea. She does have a history of similar episodes of pain in the past and was worked up by his neuro surgeon in [place] who wanted to do a HIDA scan and her insurance would not pay for it so it was not done. (NESS CROFT) Allergies/Adverse Reactions: clindamycin Allergy (Mild, Verified 06/14/22 16:34) Blisters erythromycin base [Erythromycin Base] Allergy (Verified 06/14/22 16:34) Blisters ketorolac [From Toradol] Allergy (Verified 06/14/22 16:34) Lightheadedness Penicillins Allergy (Verified 06/14/22 16:34) Hives Home Medications: Lisinopril 10 mg [Zestril 10 MG] 20 mg PO DAILY 08/07/13 [History] Insulin Glargine,Hum.rec.anlog [Basaglar Kwikpen U-100] 90 unit SQ BID 10/29/16 [History] Insulin Lispro [Admelog Solostar] 38 units SQ TIDWMEALS 09/26/21 [History] Travel Risk - International Travel Have you traveled outside of the country in past 3 weeks: No - Coronavirus Screening Are you exhibiting any of the following symptoms?: No Close contact with a COVID-19 positive Pt in past 14-21 Days: No - Vaccine Status Have you recieved a Covid-19 vaccination: No <NESS CROFT - Last Filed: 06/14/22 18:52> - Review of Systems Constitutional: No Fever, No Chills Eyes: No Symptoms Ears, Nose, & Throat: No Symptoms Respiratory: No Cough, No Dyspnea Cardiac: No Chest Pain, No Edema, No Syncope Abdominal/Gastrointestinal: Abdominal Pain, Nausea, Vomiting, No Diarrhea Genitourinary Symptoms: No Dysuria Musculoskeletal: No Back Pain, No Neck Pain Skin: No Rash Neurological: No Dizziness, No Focal Weakness, No Sensory Changes Psychological: No Symptoms Endocrine: No Symptoms All Other Systems: Reviewed and Negative <NESS CROFT - Last Filed: 06/14/22 18:52> - Past Medical History Pertinent Past Medical History: Yes Neurological History: No Pertinent History ENT History: No Pertinent History Cardiac History: Hypertension Respiratory History: No Pertinent History Endocrine Medical History: Diabetes Type I Musculoskeletal History: No Pertinent History GI Medical History: No Pertinent History, Other History: No Pertinent History Psycho-Social History: No Pertinent History Female Reproductive Disorders: No Pertinent History Other Medical History: celiac - Past Surgical History Past Surgical History: No Other Surgical History: . - Social History Smoking Status: Never smoker Exposure to second hand smoke: Yes Drug Use: none Patient Lives Alone: No - Female History Hx Last Menstrual Period: week ago Hx Now: No <NESS CROFT - Last Filed: 06/14/22 18:52> - Physical Exam General Appearance: moderate distress, alert Eye Exam: PERRL/EOMI, eyes nml inspection Ears, Nose, Throat Exam: normal ENT inspection, pharynx normal, moist mucous membranes Neck Exam: normal inspection, non-tender, supple, full range of motion Respiratory Exam: normal breath sounds, lungs clear, No respiratory distress Cardiovascular Exam: regular rate/rhythm, normal heart sounds Gastrointestinal/Abdomen Exam: tenderness (There is tenderness in the right flank and right lower quadrant area as well as the right upper quadrant.), guarding, rebound, No mass Pelvic Exam: not done Rectal Exam: deferred Back Exam: normal inspection, normal range of motion, No CVA tenderness, No vertebral tenderness Extremity Exam: normal inspection, normal range of motion, pelvis stable Neurologic Exam: alert, oriented x 3, cooperative, normal mood/affect, nml cerebellar function, sensation nml, No motor deficits Skin Exam: normal color, warm, dry SpO2 Interpretation: normal SpO2: 98 O2 Delivery: Room Air <NESS CROFT - Last Filed: 06/14/22 18:52> - Nursing Vital Signs Nursing Vital Signs: Initial Vital Signs Temperature 97.8 F 06/14/22 16:41 Pulse Rate 100 H 06/14/22 16:41 Respiratory Rate 18 06/14/22 16:41 Blood Pressure 186/98 06/14/22 16:41 O2 Sat by Pulse Oximetry 98 06/14/22 16:41 Pain Scale Pain Intensity 2 - Course Nursing assessment & vital signs reviewed: Yes <NESS CROFT - Last Filed: 06/14/22 18:52> - CT Exams Abdomen/Pelvis CT Interpretation: Negative <NIK STEELE - Last Filed: 06/14/22 20:10> Ordered Tests: Active Orders 24 hr Category Date Time Status IV Insertion STAT Care 06/14/22 16:53 Active ABDOMEN AND PELVIS W CONTRAST [CT] Stat Exams 06/14/22 16:54 Taken AMYLASE Stat Lab 06/14/22 17:35 Completed CBC W DIFF Stat Lab 06/14/22 17:35 Completed CMP Stat Lab 06/14/22 17:35 Completed HCG,QUALITATIVE URINE Stat Lab 06/14/22 17:24 Completed LIPASE Stat Lab 06/14/22 17:35 Completed Lactic Acid Stat Lab 06/14/22 16:53 Completed UA W/RFX UR CULTURE Stat Lab 06/14/22 17:24 Completed Medication Summary Discontinued Medications Generic Name Dose Route Start Last Admin Trade Name Freq PRN Reason Stop Dose Admin Droperidol 1.25 mg 06/14/22 16:53 06/14/22 17:44 Droperidol 5 Mg/2 Ml Vial IV 06/14/22 16:54 1.25 mg STAT ONE Administration Droperidol Confirm 06/14/22 17:35 Droperidol 5 Mg/2 Ml Vial Administered 06/14/22 17:36 Dose 5 mg .ROUTE .STK-MED ONE Hydromorphone HCl 1 mg 06/14/22 16:53 06/14/22 17:41 Hydromorphone 1 Mg/1ml Inj 1 Mg/Ml Syringe IV 06/14/22 16:54 1 mg STAT ONE Administration Hydromorphone HCl Confirm 06/14/22 17:36 Hydromorphone 1 Mg/1ml Inj 1 Mg/Ml Syringe Administered 06/14/22 17:37 Dose 1 mg .ROUTE .STK-MED ONE Sodium Chloride 1,000 mls @ 999 mls/hr 06/14/22 16:53 06/14/22 18:51 Sodium Chloride 0.9% 1000 Ml IV 06/14/22 17:53 Infused .Q1H1M STA Infusion Sodium Chloride Confirm 06/14/22 17:36 Sodium Chloride 0.9% 1000 Ml Administered 06/14/22 17:37 Dose 1,000 mls @ ud .ROUTE .STK-MED ONE Ondansetron HCl 4 mg 06/14/22 16:53 06/14/22 17:40 Ondansetron Hcl 4 Mg/2 Ml Vial IV 06/14/22 16:54 4 mg STAT ONE Administration Ondansetron HCl Confirm 06/14/22 17:35 Ondansetron Hcl 4 Mg/2 Ml Vial Administered 06/14/22 17:36 Dose 4 mg .ROUTE .STK-MED ONE Pantoprazole Sodium 40 mg 06/14/22 16:53 06/14/22 17:45 Pantoprazole 40 Mg Vial IV 06/14/22 16:54 40 mg STAT ONE Administration Pantoprazole Sodium Confirm 06/14/22 17:35 Pantoprazole 40 Mg Vial Administered 06/14/22 17:36 Dose 40 mg IV .STK-MED ONE Lab/Rad Data: Laboratory Result Diagrams 06/14/22 17:35 06/14/22 17:35 Laboratory Results 06/14/22 06/14/22 06/14/22 Range/Units 17:35 17:35 17:24 WBC 8.7 (4.0-10.5) x10^3/uL RBC 5.46 H (4.1-5.4) x10^6/uL Hgb 12.3 (12.0-16.0) g/dL Hct 41.4 (35-47) % MCV 75.8 L (78-100) fL MCH 22.5 L (26-32) pg MCHC 29.7 L (32-36) g/dL RDW 15.6 H (11.5-14.0) % Plt Count 260 (150-450) x10^3/uL MPV 9.0 (7.5-11.0) fL Gran % 88.8 H (36.0-66.0) % Immature Gran % (Auto) 0.3 (0.00-0.4) % Nucleat RBC Rel Count 0.0 (0.00-0.1) % Eos # (Auto) 0.04 (0-0.5) x10^3/uL Immature Gran # (Auto) 0.03 (0.00-0.03) x10^3u/L Absolute Lymphs (auto) 0.57 L (1.0-4.6) x10^3/uL Absolute Monos (auto) 0.32 (0.0-1.3) x10^3/uL Absolute Nucleated RBC 0.00 (0.00-0.01) x10^3u/L Lymphocytes % 6.5 L (24.0-44.0) % Monocytes % 3.7 (0.0-12.0) % Eosinophils % 0.5 (0.00-5.0) % Basophils % 0.2 (0.0-0.4) % Absolute Granulocytes 7.73 H (1.4-6.9) x10^3/uL Basophils # 0.02 (0-0.4) x10^3/uL Sodium 136 L (137-145) mmol/L Potassium 4.4 (3.5-5.1) mmol/L Chloride 99 (98-107) mmol/L Carbon Dioxide 31 H (22-30) mmol/L Anion Gap 10.0 (5-15) MEQ/L BUN 10 (7-17) mg/dL Creatinine 0.41 L (0.52-1.04) mg/dL Estimated GFR > 60.0 ML/MIN Glucose 253 H (74-106) mg/dL Lactic Acid (0.4-2.0) Calcium 9.2 (8.4-10.2) mg/dL Total Bilirubin 0.80 (0.2-1.3) mg/dL AST 46 H (14-36) U/L ALT 36 H (0-35) U/L Alkaline Phosphatase 113 (38-126) U/L Serum Total Protein 7.7 (6.3-8.2) g/dL Albumin 4.3 (3.5-5.0) g/dL Amylase 50 (30-110) U/L Lipase 32 (23-300) U/L Urine Color Yellow (Yellow) Urine Appearance Clear (Clear) Urine pH 8.0 (4.6-8.0) Ur Specific [place] 1.010 (1.005-1.030) Urine Protein Negative (Negative) Urine Glucose (UA) 250 A (Negative) mg/dL Urine Ketones Negative (Negative) Urine Blood Negative (Negative) Urine Nitrite Negative (Negative) Urine Bilirubin Negative (Negative) Urine Urobilinogen 0.2 (0.2) mg/dL Ur Leukocyte Esterase Negative (Negative) U Hyaline Cast (Auto) NONE SEEN (0-2) /LPF Urine Microscopic RBC 0-2 (0-5) /HPF Urine Microscopic WBC 0-2 (0-5) /HPF Ur Epithelial Cells None Seen (None Seen) /HPF Urine Bacteria None Seen (None Seen) /HPF Urine Culture Reflexed NO (NO) Urine HCG, Qual (Negative) 06/14/22 06/14/22 Range/Units 17:24 16:53 WBC (4.0-10.5) x10^3/uL RBC (4.1-5.4) x10^6/uL Hgb (12.0-16.0) g/dL Hct (35-47) % MCV (78-100) fL MCH (26-32) pg MCHC (32-36) g/dL RDW (11.5-14.0) % Plt Count (150-450) x10^3/uL MPV (7.5-11.0) fL Gran % (36.0-66.0) % Immature Gran % (Auto) (0.00-0.4) % Nucleat RBC Rel Count (0.00-0.1) % Eos # (Auto) (0-0.5) x10^3/uL Immature Gran # (Auto) (0.00-0.03) x10^3u/L Absolute Lymphs (auto) (1.0-4.6) x10^3/uL Absolute Monos (auto) (0.0-1.3) x10^3/uL Absolute Nucleated RBC (0.00-0.01) x10^3u/L Lymphocytes % (24.0-44.0) % Monocytes % (0.0-12.0) % Eosinophils % (0.00-5.0) % Basophils % (0.0-0.4) % Absolute Granulocytes (1.4-6.9) x10^3/uL Basophils # (0-0.4) x10^3/uL Sodium (137-145) mmol/L Potassium (3.5-5.1) mmol/L Chloride (98-107) mmol/L Carbon Dioxide (22-30) mmol/L Anion Gap (5-15) MEQ/L BUN (7-17) mg/dL Creatinine (0.52-1.04) mg/dL Estimated GFR ML/MIN Glucose (74-106) mg/dL Lactic Acid 1.3 (0.4-2.0) Calcium (8.4-10.2) mg/dL Total Bilirubin (0.2-1.3) mg/dL AST (14-36) U/L ALT (0-35) U/L Alkaline Phosphatase (38-126) U/L Serum Total Protein (6.3-8.2) g/dL Albumin (3.5-5.0) g/dL Amylase (30-110) U/L Lipase (23-300) U/L Urine Color (Yellow) Urine Appearance (Clear) Urine pH (4.6-8.0) Ur Specific [place] (1.005-1.030) Urine Protein (Negative) Urine Glucose (UA) (Negative) mg/dL Urine Ketones (Negative) Urine Blood (Negative) Urine Nitrite (Negative) Urine Bilirubin (Negative) Urine Urobilinogen (0.2) mg/dL Ur Leukocyte Esterase (Negative) U Hyaline Cast (Auto) (0-2) /LPF Urine Microscopic RBC (0-5) /HPF Urine Microscopic WBC (0-5) /HPF Ur Epithelial Cells (None Seen) /HPF Urine Bacteria (None Seen) /HPF Urine Culture Reflexed (NO) Urine HCG, Qual NEGATIVE (Negative) - Progress Progress: improved <NESS CROFT - Last Filed: 06/14/22 18:52> <NIK STEELE - Last Filed: 06/14/22 20:10> - Progress Progress Note: Patient re-evaluated feels that she is significantly improved from arrival. Her CT scan was negative for any abdominal pathology. She would like to go home with close w/u w/ PCP and general surgeon on an outpatient basis. 06/14/22 19:57 (NIK STEELE) - Departure Departure Disposition: Home Critical Care Time: No <PIERREKEELEYNESS - Last Filed: 06/14/22 18:52> <NIK STEELE - Last Filed: 06/14/22 20:10> - Departure Clinical Impression: Abdominal pain, Right upper quadrant abdominal pain Condition: Stable Referrals: KARLA LANDA MD [Primary Care Provider] - Follow up/PCP as directed Instructions: Severe Abdominal Pain Additional Instructions: You have been evaluated in the Emergency Department today for abdominal pain. Your evaluation was not suggestive of any emergent condition requiring medical intervention at this time. However, some abdominal problems make take more time to appear. Therefore, it is important for you to watch for any new symptoms or worsening of your current condition. Please follow up with your primary care physician as needed. If you do not have a primary doctor, you can call your insurance company to find one. If you do not have insurance, you can go to the finance/registration department for more assistance. Return to the Emergency Department if you experience worsening pain, persistent fevers greater than 100.4, recurrent vomiting, blood in vomit, blood in stool, d ark tarry stool, chest pain, difficulty breathing, or any other concerning symptoms. Prescriptions: Ondansetron ODT 4 MG [Zofran Odt 4 mg] 4 mg PO Q6H PRN PRN #10 tablet PRN Reason: Nausea Hydrocodone/Acetaminophen [Hydrocodone-Acetamin 7.5-325] 1 each PO Q6H PRN 3 Days #12 tablet MDD 4 tablets PRN Reason: Pain
[2022-06-14 20:12] VITALS: BP 180/112; PULSE 100; O2SAT 97
--- NOTE | 2022-06-14 20:25 | XRAY ---
Indication: Right abdomen pain, nausea, and vomiting. Multiple contiguous axial images obtained through the abdomen and pelvis using 80 cc Isovue 370 contrast. Comparison: September 27, 2021 Lung bases remain clear again with right posterior gutter calcified granuloma. Heart not enlarged. Noncontrasted stomach and bowel loops nonobstructed again with normal appendix. Stable tiny splenic calcific granuloma and 14.4 cm splenomegaly. No free fluid/air. Remaining liver, gallbladder, pancreas, spleen, adrenal glands, kidneys, ureters, bladder, and uterus are unremarkable. Again minimal aortoiliac calcifications. No AAA or pathological retroperitoneal lymphadenopathy. Osseous structures intact. Impression: 1. Again splenomegaly, arteriosclerotic disease, and old granulomatous disease. 2. Remaining CT abdomen/pelvis with contrast exam is again negative. Comment: Preliminary interpretation made by C. No critical discrepancy.
== END 2022-06-14 20:18 | disposition home or self-care (01) ==
LOC: ED 16:26
DX: R10.11 Right upper quadrant pain (principal); R11.2 Nausea with vomiting, unspecified; E10.9 Type 1 diabetes mellitus without complications; I10 Essential (primary) hypertension; Z79.4 Long term (current) use of insulin; Z79.891 Long term (current) use of opiate analgesic; Z79.899 Other long term (current) drug therapy; Z28.310 Unvaccinated for COVID-19
CPT/HCPCS: 36000; 36415; 74177; 80053; 81001; 81025; 82150; 83605; 83690; 85025; 96360; 96374; 96375; 99284; J1170; J2405

== ENCOUNTER 2022-06-19 13:18 | Emergency (ER) | payer OTHER ==
--- NOTE | 2022-06-19 13:27 | ERPHSYRPT ---
- History of Present Illness Time Seen by Provider: 06/19/22 13:27 Historian: patient Exam Limitations: no limitations Physician History: This is an obese 36-year-old female who is having right upper quadrant abdominal pain and nausea vomiting after eating food. She is now having discomfort after even drinking liquids. Patient states that she has been here in our emergency department 2 other times in the last week or 2. She has had full work-ups including a recent CAT scan of the abdomen pelvis which does not show any acute intra-abdominal or intra pelvic findings. The studies and evaluations were evaluated by me and I obtained additional history from them. Patient has a history of hypertension and diabetes. Patient states that she was told that she would need a HIDA scan. I did explain to her that this is an outpatient study. I do not feel we need to repeat the CAT scan of abdomen pelvis since its a recent. I will order a gallbladder ultrasound and obtain blood work. Timing/Duration: day(s) (Last several days), worse Activities at Onset: none Quality: aching Abdominal Pain Onset Location: RUQ Pain Radiation: no radiation Severity of Pain-Max: moderate Severity of Pain-Current: mild (Moderate) Modifying Factors: Improves With: nothing Associated Symptoms: loss of appetite, nausea, vomiting, No chest pain, No headache Previous symptoms: same symptoms as today, recently seen, recently treated Allergies/Adverse Reactions: clindamycin Allergy (Mild, Verified 06/19/22 13:55) Blisters erythromycin base [Erythromycin Base] Allergy (Verified 06/19/22 13:55) Blisters ketorolac [From Toradol] Allergy (Verified 06/19/22 13:55) Lightheadedness Penicillins Allergy (Verified 06/19/22 13:55) Hives Home Medications: Lisinopril 10 mg [Zestril 10 MG] 20 mg PO DAILY 08/07/13 [History] Insulin Glargine,Hum.rec.anlog [Basaglar Giorgiikpen U-100] 90 unit SQ BID 10/29/16 [History] Insulin Lispro [Admelog Solostar] 38 units SQ TIDWMEALS 09/26/21 [History] Hx Tetanus, Diphtheria Vaccination/Date Given: No Hx Influenza Vaccination/Date Given: No Hx Pneumococcal Vaccination/Date Given: No Travel Risk - International Travel Have you traveled outside of the country in past 3 weeks: No - Coronavirus Screening Are you exhibiting any of the following symptoms?: No Close contact with a COVID-19 positive Pt in past 14-21 Days: No - Vaccine Status Have you recieved a Covid-19 vaccination: No - Review of Systems Constitutional: No Symptoms Eyes: No Symptoms Ears, Nose, & Throat: No Symptoms Respiratory: No Symptoms Cardiac: No Symptoms Abdominal/Gastrointestinal: Abdominal Pain (Right upper quadrant), Nausea, Vomiting, Appetite Changes Genitourinary Symptoms: No Symptoms Musculoskeletal: No Symptoms Skin: No Symptoms Neurological: No Symptoms Psychological: No Symptoms Endocrine: No Symptoms Hematologic/Lymphatic: No Symptoms Immunological/Allergic: No Symptoms All Other Systems: Reviewed and Negative - Past Medical History Pertinent Past Medical History: Yes Neurological History: No Pertinent History ENT History: No Pertinent History Cardiac History: Hypertension Respiratory History: No Pertinent History Endocrine Medical History: Diabetes Type I Musculoskeletal History: No Pertinent History GI Medical History: No Pertinent History, Other History: No Pertinent History Psycho-Social History: No Pertinent History Female Reproductive Disorders: No Pertinent History Other Medical History: celiac - Past Surgical History Past Surgical History: No Other Surgical History: . - Social History Smoking Status: Never smoker Exposure to second hand smoke: Yes Drug Use: none Patient Lives Alone: No - Nursing Vital Signs Nursing Vital Signs: Initial Vital Signs Temperature 97.5 F 06/19/22 13:57 Pulse Rate 100 H 06/19/22 13:57 Respiratory Rate 20 06/19/22 13:57 Blood Pressure 164/110 06/19/22 13:57 O2 Sat by Pulse Oximetry 97 06/19/22 13:57 Pain Scale Pain Intensity 8 - Physical Exam General Appearance: no apparent distress, alert, anxiety, obese Eye Exam: PERRL/EOMI, eyes nml inspection Ears, Nose, Throat Exam: normal ENT inspection, moist mucous membranes Neck Exam: normal inspection, non-tender, supple, full range of motion Respiratory Exam: normal breath sounds, lungs clear, airway intact, No chest tenderness, No respiratory distress Cardiovascular Exam: regular rate/rhythm, normal heart sounds, normal peripheral pulses Gastrointestinal/Abdomen Exam: soft, normal bowel sounds, tenderness (Right upper quadrant to palpation), guarding (Right upper quadrant), No rebound Pelvic Exam: not done Rectal Exam: not done Back Exam: normal inspection, normal range of motion, No CVA tenderness, No vertebral tenderness Extremity Exam: normal inspection, normal range of motion, pelvis stable Neurologic Exam: alert, oriented x 3, 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, 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, normal mood/affect, nml cerebellar function, nml station & gait, sensation nml Skin Exam: normal color, warm, dry Lymphatic Exam: No adenopathy SpO2 Interpretation: normal O2 Delivery: Room Air - Course Nursing assessment & vital signs reviewed: Yes Ordered Tests: Active Orders 24 hr Category Date Time Status IV Insertion STAT Care 06/19/22 14:21 Active GALLBLADDER [US] Stat Exams 06/19/22 14:22 Completed AMYLASE Stat Lab 06/19/22 14:55 Completed CBC W DIFF Stat Lab 06/19/22 14:55 Completed CMP Stat Lab 06/19/22 14:55 Completed HCG QUALITATIVE,SERUM Stat Lab 06/19/22 14:55 Completed LIPASE Stat Lab 06/19/22 14:55 Completed UA W/RFX UR CULTURE Stat Lab 06/19/22 14:20 Completed Medication Summary Discontinued Medications Generic Name Dose Route Start Last Admin Trade Name Irvingq PRN Reason Stop Dose Admin Hydromorphone HCl 1 mg 06/19/22 14:21 06/19/22 14:37 Hydromorphone 1 Mg/1ml Inj 1 Mg/Ml Syringe IV 06/19/22 14:22 1 mg STAT ONE Administration Hydromorphone HCl Confirm 06/19/22 14:35 Hydromorphone 1 Mg/1ml Inj 1 Mg/Ml Syringe Administered 06/19/22 14:36 Dose 1 mg .ROUTE .STK-MED ONE Sodium Chloride 1,000 mls @ 999 mls/hr 06/19/22 14:21 06/19/22 14:36 Sodium Chloride 0.9% 1000 Ml IV 06/19/22 15:21 999 mls/hr .Q1H1M STA Administration Sodium Chloride Confirm 06/19/22 14:35 Sodium Chloride 0.9% 1000 Ml Administered 06/19/22 14:36 Dose 1,000 mls @ ud .ROUTE .STK-MED ONE Ondansetron HCl 4 mg 06/19/22 14:21 06/19/22 14:37 Ondansetron Hcl 4 Mg/2 Ml Vial IV 06/19/22 14:22 4 mg STAT ONE Administration Ondansetron HCl Confirm 06/19/22 14:35 Ondansetron Hcl 4 Mg/2 Ml Vial Administered 06/19/22 14:36 Dose 4 mg .ROUTE .STK-MED ONE Lab/Rad Data: Laboratory Result Diagrams 06/19/22 14:55 06/19/22 14:55 Laboratory Results 06/19/22 06/19/22 06/19/22 Range/Units 14:55 14:55 14:55 WBC 10.1 (4.0-10.5) x10^3/uL RBC 5.49 H (4.1-5.4) x10^6/uL Hgb 12.3 (12.0-16.0) g/dL Hct 41.3 (35-47) % MCV 75.2 L (78-100) fL MCH 22.4 L (26-32) pg MCHC 29.8 L (32-36) g/dL RDW 16.0 H (11.5-14.0) % Plt Count 250 (150-450) x10^3/uL MPV 8.9 (7.5-11.0) fL Gran % 90.7 H (36.0-66.0) % Immature Gran % (Auto) 0.3 (0.00-0.4) % Nucleat RBC Rel Count 0.0 (0.00-0.1) % Eos # (Auto) 0.02 (0-0.5) x10^3/uL Immature Gran # (Auto) 0.03 (0.00-0.03) x10^3u/L Absolute Lymphs (auto) 0.51 L (1.0-4.6) x10^3/uL Absolute Monos (auto) 0.35 (0.0-1.3) x10^3/uL Absolute Nucleated RBC 0.00 (0.00-0.01) x10^3u/L Lymphocytes % 5.1 L (24.0-44.0) % Monocytes % 3.5 (0.0-12.0) % Eosinophils % 0.2 (0.00-5.0) % Basophils % 0.2 (0.0-0.4) % Absolute Granulocytes 9.15 H (1.4-6.9) x10^3/uL Basophils # 0.02 (0-0.4) x10^3/uL Sodium 134 L (137-145) mmol/L Potassium 4.7 (3.5-5.1) mmol/L Chloride 99 (98-107) mmol/L Carbon Dioxide 29 (22-30) mmol/L Anion Gap 10.5 (5-15) MEQ/L BUN 9 (7-17) mg/dL Creatinine 0.50 L (0.52-1.04) mg/dL Estimated GFR > 60.0 ML/MIN Glucose 244 H (74-106) mg/dL Calcium 9.1 (8.4-10.2) mg/dL Total Bilirubin 0.80 (0.2-1.3) mg/dL AST 29 (14-36) U/L ALT 32 (0-35) U/L Alkaline Phosphatase 114 (38-126) U/L Serum Total Protein 7.1 (6.3-8.2) g/dL Albumin 4.1 (3.5-5.0) g/dL Amylase 42 (30-110) U/L Lipase 35 (23-300) U/L Serum , Qual NEGATIVE (Negative) Urine Color (Yellow) Urine Appearance (Clear) Urine pH (4.6-8.0) Ur Specific [place] (1.005-1.030) Urine Protein (Negative) Urine Glucose (UA) (Negative) mg/dL Urine Ketones (Negative) Urine Blood (Negative) Urine Nitrite (Negative) Urine Bilirubin (Negative) Urine Urobilinogen (0.2) mg/dL Ur Leukocyte Esterase (Negative) U Hyaline Cast (Auto) (0-2) /LPF Urine Microscopic RBC (0-5) /HPF Urine Microscopic WBC (0-5) /HPF Ur Epithelial Cells (None Seen) /HPF Urine Bacteria (None Seen) /HPF Urine Culture Reflexed (NO) 06/19/22 Range/Units 14:20 WBC (4.0-10.5) x10^3/uL RBC (4.1-5.4) x10^6/uL Hgb (12.0-16.0) g/dL Hct (35-47) % MCV (78-100) fL MCH (26-32) pg MCHC (32-36) g/dL RDW (11.5-14.0) % Plt Count (150-450) x10^3/uL MPV (7.5-11.0) fL Gran % (36.0-66.0) % Immature Gran % (Auto) (0.00-0.4) % Nucleat RBC Rel Count (0.00-0.1) % Eos # (Auto) (0-0.5) x10^3/uL Immature Gran # (Auto) (0.00-0.03) x10^3u/L Absolute Lymphs (auto) (1.0-4.6) x10^3/uL Absolute Monos (auto) (0.0-1.3) x10^3/uL Absolute Nucleated RBC (0.00-0.01) x10^3u/L Lymphocytes % (24.0-44.0) % Monocytes % (0.0-12.0) % Eosinophils % (0.00-5.0) % Basophils % (0.0-0.4) % Absolute Granulocytes (1.4-6.9) x10^3/uL Basophils # (0-0.4) x10^3/uL Sodium (137-145) mmol/L Potassium (3.5-5.1) mmol/L Chloride (98-107) mmol/L Carbon Dioxide (22-30) mmol/L Anion Gap (5-15) MEQ/L BUN (7-17) mg/dL Creatinine (0.52-1.04) mg/dL Estimated GFR ML/MIN Glucose (74-106) mg/dL Calcium (8.4-10.2) mg/dL Total Bilirubin (0.2-1.3) mg/dL AST (14-36) U/L ALT (0-35) U/L Alkaline Phosphatase (38-126) U/L Serum Total Protein (6.3-8.2) g/dL Albumin (3.5-5.0) g/dL Amylase (30-110) U/L Lipase (23-300) U/L Serum , Qual (Negative) Urine Color Yellow (Yellow) Urine Appearance Clear (Clear) Urine pH 8.0 (4.6-8.0) Ur Specific [place] 1.015 (1.005-1.030) Urine Protein Negative (Negative) Urine Glucose (UA) 100 A (Negative) mg/dL Urine Ketones 15 A (Negative) Urine Blood Negative (Negative) Urine Nitrite Negative (Negative) Urine Bilirubin Negative (Negative) Urine Urobilinogen 1.0 A (0.2) mg/dL Ur Leukocyte Esterase Negative (Negative) U Hyaline Cast (Auto) NONE SEEN (0-2) /LPF Urine Microscopic RBC 0-2 (0-5) /HPF Urine Microscopic WBC 0-2 (0-5) /HPF Ur Epithelial Cells None Seen (None Seen) /HPF Urine Bacteria None Seen (None Seen) /HPF Urine Culture Reflexed NO (NO) - Progress Progress Note: 06/19/22 15:30 Gallbladder ultrasound report provided me by the service tech/welder. No c holelithiasis. No evidence of chronic or acute cholecystitis. 06/19/22 15:31 Medical decision making: This patient has at least a medical issue that is of moderate complexity. This is based on the patient's complaint, patient's history and medical history she provided me directly as well as from the old work-up reports I reviewed. In addition to the above, use of vital signs to determine what type of work-up I would do here in the emergency department. This included ultrasound the gallbladder, lab work and urinalysis. I reviewed the results of the studies. Based on the work-up findings, the patient has fairly classic symptoms of cholecystitis. It may be a calculus cholecystitis. There is no evidence of any acute or chronic gallbladder wall thickening. There is no pericholecystic fluid. There is no gallstones appreciated on the ultrasound. The patient requires a HIDA scan and this is an outpatient study. This was discussed in detail with the patient and part of the discharge plan that I provided her. We will also provide her with antiemetic and pain medication. She is to contact her primary care physician tomorrow, 06/20/2022 Counseled pt/family regarding: lab results, diagnosis, need for follow-up, rad results - Departure Departure Disposition: Home Clinical Impression: Right upper quadrant abdominal pain, Vomiting, Hyperglycemia Condition: Stable Critical Care Time: No Referrals: KARLA LANDA MD [Primary Care Provider] - Follow up/PCP as directed Additional Instructions: Avoid fatty greasy spicy foods. Drink plenty of fluids. Take your medication as prescribed. Follow-up with your primary care physician tomorrow, 06/20/2022 to make arranges for follow-up appointment including ordering a HIDA scan of the gallbladder if indicated. Prescriptions: Ondansetron ODT 4 MG [Zofran Odt 4 mg] 4 mg PO Q6H PRN PRN #10 tablet PRN Reason: Vomiting Oxycodone HCl/Acetaminophen [Percocet 5-325 mg Tablet] 1 each PO Q8H PRN PRN #6 tablet MDD 3 PRN Reason: Moderate To Severe Pain
[2022-06-19] MEDS ORDERED: Hydromorphone 1 mg/ml Injection IV ONE (14:21)
[2022-06-19] MEDS ORDERED: Zofran 4 MG/2 ML VIAL IV ONE (14:21)
[2022-06-19] MEDS ORDERED: Sodium Chloride 0.9% 1000 ML 1,000 ML IV STA (14:21)
[2022-06-19] MEDS ORDERED: Hydromorphone 1 mg/ml Injection ONE (14:35)
[2022-06-19] MEDS ORDERED: Zofran 4 MG/2 ML VIAL ONE (14:35)
[2022-06-19] MEDS ORDERED: Sodium Chloride 0.9% 1000 ML 1,000 ML ONE (14:35)
[2022-06-19 15:01] LABS: Absolute Neutrophil Ct (ANC) 9.15 x10^3/uL (1.4-6.9); BASOPHIL % 0.2 % (0.0-0.4); Basophil (Absolute #) 0.02 x10^3/uL (0-0.4); Eosinophil % 0.2 % (0.00-5.0); Eosinophil (Absolute #) 0.02 x10^3/uL (0-0.5); Hematocrit 41.3 % (35-47); Hemoglobin 12.3 g/dL (12.0-16.0); IMMATURE GRAN # 0.03 x10^3u/L (0.00-0.03); IMMATURE GRAN % 0.3 % (0.00-0.4); Lymphocyte (Absolute #) 0.51 x10^3/uL (1.0-4.6); Lymphocytes % 5.1 % (24.0-44.0); Mean Cell Volume 75.2 fL (78-100); Mean Corpuscular Hemoglobin 22.4 pg (26-32); Mean Corpuscular Hgb Concent. 29.8 g/dL (32-36); Mean Platelet Volume 8.9 fL (7.5-11.0); Monocyte (Absolute #) 0.35 x10^3/uL (0.0-1.3); Monocytes % 3.5 % (0.0-12.0); Neutrophil % 90.7 % (36.0-66.0); Platelet Count 250 x10^3/uL (150-450); Red Blood Count 5.49 x10^6/uL (4.1-5.4); White Blood Count 10.1 x10^3/uL (4.0-10.5)
--- NOTE | 2022-06-19 15:01 | XRAY ---
Indication: Right upper quadrant pain. Negative same day CT evidence/pelvis exam. Two-dimensional gallbladder sonogram performed. Comparison: September 05, 2020 Sonogram again limited due to patient body habitus. Visualized gallbladder normally distended without obvious gallstones, wall thickening, or pericholecystic fluid. Common bile duct measures 3.3 mm. No intrahepatic biliary distention. Visualized liver, pancreas, and right kidney are sonographically unremarkable. Right kidney measures 11.7 cm vicenta. Impression: Continued grossly negative limited gallbladder sonogram.
[2022-06-19 15:03] LABS: ADD URINE CULTURE? NO (NO); Appearance Clear (Clear); Bacteria None Seen /HPF (None Seen); Bilirubin Negative (Negative); Blood Negative (Negative); Epithelial Cells None Seen /HPF (None Seen); Glucose, Urine 100 mg/dL (Negative); Hyaline Casts NONE SEEN /LPF (0-2); Ketones 15 (Negative); Leukocyte Esterase Negative (Negative); Nitrite Negative (Negative); Protein,Urine Dip Negative (Negative); RBC 0-2 /HPF (0-5); Specific Gravity 1.015 (1.005-1.030); WBC 0-2 /HPF (0-5)
[2022-06-19 15:13] VITALS: O2SAT 96
[2022-06-19 15:19] LABS: ALBUMIN 4.1 g/dL (3.5-5.0); ALKALINE PHOSPHATASE 114 U/L (38-126); AMYLASE 42 U/L (30-110); ANION GAP 10.5 MEQ/L (5-15); BLOOD UREA NITROGEN 9 mg/dL (7-17); CHLORIDE 99 mmol/L (98-107); Calcium 9.1 mg/dL (8.4-10.2); Carbon Dioxide 29 mmol/L (22-30); EST GLOMERULAR FILTRATION RATE > 60.0 ML/MIN; Glucose 244 mg/dL (74-106); LIPASE 35 U/L (23-300); Potassium 4.7 mmol/L (3.5-5.1); SGOT/AST 29 U/L (14-36); SGPT/ALT 32 U/L (0-35); SODIUM 134 mmol/L (137-145); Total Protein 7.1 g/dL (6.3-8.2)
[2022-06-19 15:49] LABS: Slide Review 1 YES
[2022-06-19 15:56] VITALS: BP 135/83; PULSE 88
== END 2022-06-19 15:56 | disposition home or self-care (01) ==
LOC: ED 13:18
DX: R11.2 Nausea with vomiting, unspecified (principal); R10.11 Right upper quadrant pain; E10.65 Type 1 diabetes mellitus with hyperglycemia; I10 Essential (primary) hypertension; Z79.4 Long term (current) use of insulin; Z79.891 Long term (current) use of opiate analgesic; Z79.899 Other long term (current) drug therapy; Z28.310 Unvaccinated for COVID-19
CPT/HCPCS: 36000; 36415; 76705; 80053; 81001; 82150; 83690; 84703; 85025; 96360; 96374; 96375; 99284; J1170; J2405

== ENCOUNTER 2022-11-24 14:09 | Emergency (ER) | payer OTHER ==
[2022-11-24 15:01] LABS: Absolute Neutrophil Ct (ANC) 7.35 x10^3/uL (1.4-6.9); BASOPHIL % 0.1 % (0.0-0.4); Basophil (Absolute #) 0.01 x10^3/uL (0-0.4); Eosinophil % 0.4 % (0.00-5.0); Eosinophil (Absolute #) 0.03 x10^3/uL (0-0.5); Hematocrit 39.2 % (35-47); Hemoglobin 12.2 g/dL (12.0-16.0); IMMATURE GRAN # 0.04 x10^3u/L (0.00-0.03); IMMATURE GRAN % 0.5 % (0.00-0.4); Mean Cell Volume 78.2 fL (78-100); Mean Corpuscular Hemoglobin 24.4 pg (26-32); Mean Corpuscular Hgb Concent. 31.1 g/dL (32-36); Mean Platelet Volume 9.2 fL (7.5-11.0); Monocyte (Absolute #) 0.39 x10^3/uL (0.0-1.3); Monocytes % 4.7 % (0.0-12.0); Neutrophil % 88.3 % (36.0-66.0); Platelet Count 260 x10^3/uL (150-450); Red Blood Count 5.01 x10^6/uL (4.1-5.4); Red Cell Distribution Width 15.5 % (11.5-14.0); White Blood Count 8.3 x10^3/uL (4.0-10.5)
[2022-11-24 15:07] LABS: Appearance Clear (Clear); Bacteria None Seen /HPF (None Seen); Bilirubin Negative (Negative); Blood Large (Negative); Epithelial Cells Rare /HPF (None Seen); Glucose, Urine 100 mg/dL (Negative); Hyaline Casts NONE SEEN /LPF (0-2); Ketones Trace (Negative); Leukocyte Esterase Trace (Negative); Nitrite Negative (Negative); Protein,Urine Dip Trace (Negative); RBC >100 /HPF (0-5)
[2022-11-24 15:12] LABS: ADD URINE CULTURE? YES (NO)
[2022-11-24 15:15] LABS: Slide Review 1 YES
[2022-11-24 15:19] LABS: ALKALINE PHOSPHATASE 96 U/L (38-126); AMYLASE 47 U/L (30-110); ANION GAP 10.6 MEQ/L (5-15); BLOOD UREA NITROGEN 9 mg/dL (7-17); CHLORIDE 96 mmol/L (98-107); Calcium 10.2 mg/dL (8.4-10.2); Carbon Dioxide 31 mmol/L (22-30); Creatinine 1 0.52 mg/dL (0.52-1.04); EST GLOMERULAR FILTRATION RATE > 60.0 ML/MIN; Glucose 236 mg/dL (74-106); LIPASE 36 U/L (23-300); Potassium 3.7 mmol/L (3.5-5.1); SGOT/AST 29 U/L (14-36); SGPT/ALT 33 U/L (0-35); SODIUM 134 mmol/L (137-145); Total Protein 7.4 g/dL (6.3-8.2)
--- NOTE | 2022-11-24 15:32 | ERPHSYRPT ---
- History of Present Illness Historian: patient Exam Limitations: no limitations Patient Subjective Stated Complaint: Pt reports she had her gallbladder removed on 11/18/[address] Navarro at [facility]; she was discharged with norco and zofran. Since her cholecystectomy she has been to the ER in [place] for pain and nausea/vomiting at which time they continued the zofran which helps per pt report but switched her to oxycodone due to the norco not helping. Pt reports last night she took her last oxycodone, continued pain. Has two tablets of zofran. Continues to vomit approx 3-4 times per day and pain rated 8/10. Triage Nursing Assessment: Pt alert and oriented x3. No apparent respiratory distress. Skin w/p/d. Ambulated to ED cot without difficulty. Accompanied by . Surgical sites clean/dry/steri strips intact; no drainage, redness noted. Abdomen soft/tender with palpation in upper abdomen, active bowel sounds in all four quads. No active vomiting at this time, emesis bag provided. Physician History: 37 yo WF s/p Lap berkley per Dr. Tompkins at [facility] on 11/18/22 presents w RUQ pain rated an 8 on scale. Pt was discharged on 11/18/22 but went to the [facility] ER on 11/18/22. She was sent home on Percocet which she is currently out of. Pain is 8/10 and is accompanied by N/V/D. She denies melena/hematochezia/dysuria/hematuria/fever/chest pain. Pt has an appointment w Dr. Tompkins tomorrow. Timing/Duration: other Activities at Onset: rest Quality: sharpness Abdominal Pain Onset Location: RUQ Pain Radiation: no radiation Severity of Pain-Max: severe Severity of Pain-Current: severe Modifying Factors: Improves With: nothing Associated Symptoms: denies symptoms Previous symptoms: same symptoms as today Allergies/Adverse Reactions: clindamycin Allergy (Mild, Verified 11/24/22 14:24) Blisters erythromycin base [Erythromycin Base] Allergy (Verified 11/24/22 14:24) Blisters ketorolac [From Toradol] Allergy (Verified 11/24/22 14:24) Lightheadedness Penicillins Allergy (Verified 11/24/22 14:24) Hives Home Medications: Lisinopril 10 mg [Zestril 10 MG] 20 mg PO DAILY 08/07/13 [History] Insulin Glargine,Hum.rec.anlog [Basaglar Giorgiikpen U-100] 90 unit SQ BID 10/29/16 [History] Insulin Lispro [Admelog Solostar] 38 units SQ TIDWMEALS 09/26/21 [History] Hx Tetanus, Diphtheria Vaccination/Date Given: Yes Hx Influenza Vaccination/Date Given: No Hx Pneumococcal Vaccination/Date Given: No Travel Risk - International Travel Have you traveled outside of the country in past 3 weeks: No - Coronavirus Screening Are you exhibiting any of the following symptoms?: Yes Symptoms: Vomiting/Diarrhea Close contact with a COVID-19 positive Pt in past 14-21 Days: No - Vaccine Status Have you recieved a Covid-19 vaccination: No - Review of Systems Constitutional: No Symptoms Eyes: No Symptoms Ears, Nose, & Throat: No Symptoms Respiratory: No Symptoms Cardiac: No Symptoms Genitourinary Symptoms: No Symptoms Musculoskeletal: No Symptoms Skin: No Symptoms Neurological: No Symptoms Psychological: No Symptoms Endocrine: No Symptoms Hematologic/Lymphatic: No Symptoms Immunological/Allergic: No Symptoms - Past Medical History Pertinent Past Medical History: Yes Neurological History: No Pertinent History ENT History: No Pertinent History Cardiac History: Hypertension Respiratory History: No Pertinent History Endocrine Medical History: Diabetes Type I Musculoskeletal History: No Pertinent History GI Medical History: Gallbladder Disease, Other History: No Pertinent History Psycho-Social History: No Pertinent History Female Reproductive Disorders: No Pertinent History Other Medical History: celiac - Past Surgical History Past Surgical History: Yes Gastrointestinal: Cholecystectomy Other Surgical History: . - Social History Smoking Status: Never smoker Exposure to second hand smoke: Yes Drug Use: none Patient Lives Alone: No - Female History Hx Last Menstrual Period: 11/17/22 Hx Now: No - Nursing Vital Signs Nursing Vital Signs: Initial Vital Signs Temperature 97 F 11/24/22 14:15 Pulse Rate 100 H 11/24/22 14:15 Respiratory Rate 11/24/22 14:15 Blood Pressure 158/88 11/24/22 14:15 O2 Sat by Pulse Oximetry 97 11/24/22 14:15 Pain Scale Pain Intensity 8 Hypertensive/Borderline tachy - Physical Exam General Appearance: no apparent distress Eye Exam: PERRL/EOMI, eyes nml inspection Ears, Nose, Throat Exam: normal ENT inspection, TMs normal, pharynx normal, moist mucous membranes Neck Exam: normal inspection, non-tender, supple, full range of motion, No meningismus, No mass, No Brudzinski, No Kernig's, No carotid bruit Respiratory Exam: normal breath sounds, lungs clear, airway intact Cardiovascular Exam: regular rate/rhythm, normal heart sounds, normal peripheral pulses, capillary refill <2 sec, No murmur Gastrointestinal/Abdomen Exam: soft, normal bowel sounds, tenderness (TTP RUQ/No guarding or rebound/Lap berkley incisions clean, dry, and intact) Back Exam: normal inspection, normal range of motion Extremity Exam: normal inspection, normal range of motion Neurologic Exam: alert, oriented x 3, cooperative, 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 as tested, normal mood/affect, nml cerebellar function, nml station & gait, sensation nml Skin Exam: normal color, warm, dry Lymphatic Exam: No adenopathy SpO2 Interpretation: normal SpO2: 97 O2 Delivery: Room Air - Course Nursing assessment & vital signs reviewed: Yes - CT Exams Abdomen/Pelvis CT Interpretation: Discussed w/radiologist (CT ab-pelvis wo contrast/Splenomegaly/status post berkley, nothing acute) Ordered Tests: Active Orders 24 hr Category Date Time Status IV Insertion STAT Care 11/24/22 14:26 Active ABDOMEN AND PELVIS W/0 CONTRAS [CT] Stat Exams 11/24/22 15:26 Completed AMYLASE Stat Lab 11/24/22 14:55 Completed CBC W DIFF Stat Lab 11/24/22 14:55 Completed CMP Stat Lab 11/24/22 14:55 Completed CULTURE,URINE Stat Lab 11/24/22 14:51 Received LIPASE Stat Lab 11/24/22 14:55 Completed Lactic Acid Stat Lab 11/24/22 14:38 Ordered TROPONIN Q4H Lab 11/24/22 14:55 Completed TROPONIN Q4H Lab 11/24/22 18:45 Ordered TROPONIN Q4H Lab 11/24/22 22:45 Ordered UA W/RFX UR CULTURE Stat Lab 11/24/22 14:51 Completed Medication Summary Discontinued Medications Generic Name Dose Route Start Last Admin Trade Name Freq PRN Reason Stop Dose Admin Fentanyl Citrate 100 mcg 11/24/22 16:24 11/24/22 16:26 Fentanyl Citrate 100 Mcg/2 Ml* Vial IV 11/24/22 16:25 100 mcg STAT ONE Administration Fentanyl Citrate Confirm 11/24/22 16:25 Fentanyl Citrate 100 Mcg/2 Ml* Vial Administered 11/24/22 16:26 Dose 100 mcg .ROUTE .STK-MED ONE Ondansetron HCl 4 mg 11/24/22 16:24 11/24/22 16:26 Ondansetron Hcl 4 Mg/2 Ml Vial IV 11/24/22 16:25 4 mg STAT ONE Administration Ondansetron HCl Confirm 11/24/22 16:25 Ondansetron Hcl 4 Mg/2 Ml Vial Administered 11/24/22 16:26 Dose 4 mg .ROUTE .STK-MED ONE Lab/Rad Data: Laboratory Result Diagrams 11/24/22 14:55 11/24/22 14:55 Laboratory Results 11/24/22 11/24/22 11/24/22 Range/Units 14:55 14:55 14:55 WBC 8.3 (4.0-10.5) x10^3/uL RBC 5.01 (4.1-5.4) x10^6/uL Hgb 12.2 (12.0-16.0) g/dL Hct 39.2 (35-47) % MCV 78.2 (78-100) fL MCH 24.4 L (26-32) pg MCHC 31.1 L (32-36) g/dL RDW 15.5 H (11.5-14.0) % Plt Count 260 (150-450) x10^3/uL MPV 9.2 (7.5-11.0) fL Gran % 88.3 H (36.0-66.0) % Immature Gran % (Auto) 0.5 H (0.00-0.4) % Nucleat RBC Rel Count 0.0 (0.00-0.1) % Eos # (Auto) 0.03 (0-0.5) x10^3/uL Immature Gran # (Auto) 0.04 H (0.00-0.03) x10^3u/L Absolute Lymphs (auto) 0.50 L (1.0-4.6) x10^3/uL Absolute Monos (auto) 0.39 (0.0-1.3) x10^3/uL Absolute Nucleated RBC 0.00 (0.00-0.01) x10^3u/L Lymphocytes % 6.0 L (24.0-44.0) % Monocytes % 4.7 (0.0-12.0) % Eosinophils % 0.4 (0.00-5.0) % Basophils % 0.1 (0.0-0.4) % Absolute Granulocytes 7.35 H (1.4-6.9) x10^3/uL Basophils # 0.01 (0-0.4) x10^3/uL Sodium 134 L (137-145) mmol/L Potassium 3.7 (3.5-5.1) mmol/L Chloride 96 L (98-107) mmol/L Carbon Dioxide 31 H (22-30) mmol/L Anion Gap 10.6 (5-15) MEQ/L BUN 9 (7-17) mg/dL Creatinine 0.52 (0.52-1.04) mg/dL Estimated GFR > 60.0 ML/MIN Glucose 236 H (74-106) mg/dL Calcium 10.2 (8.4-10.2) mg/dL Total Bilirubin 0.70 (0.2-1.3) mg/dL AST 29 (14-36) U/L ALT 33 (0-35) U/L Alkaline Phosphatase 96 (38-126) U/L Troponin I < 0.012 (0.000-0.034) ng/mL Serum Total Protein 7.4 (6.3-8.2) g/dL Albumin 4.0 (3.5-5.0) g/dL Amylase 47 (30-110) U/L Lipase 36 (23-300) U/L Urine Color (Yellow) Urine Appearance (Clear) Urine pH (4.6-8.0) Ur Specific [place] (1.005-1.030) Urine Protein (Negative) Urine Glucose (UA) (Negative) mg/dL Urine Ketones (Negative) Urine Blood (Negative) Urine Nitrite (Negative) Urine Bilirubin (Negative) Urine Urobilinogen (0.2) mg/dL Ur Leukocyte Esterase (Negative) U Hyaline Cast (Auto) (0-2) /LPF Urine Microscopic RBC (0-5) /HPF Urine Microscopic WBC (0-5) /HPF Ur Epithelial Cells (None Seen) /HPF Urine Bacteria (None Seen) /HPF Urine Culture Reflexed (NO) Slides for Path Review YES 11/24/22 Range/Units 14:51 WBC (4.0-10.5) x10^3/uL RBC (4.1-5.4) x10^6/uL Hgb (12.0-16.0) g/dL Hct (35-47) % MCV (78-100) fL MCH (26-32) pg MCHC (32-36) g/dL RDW (11.5-14.0) % Plt Count (150-450) x10^3/uL MPV (7.5-11.0) fL Gran % (36.0-66.0) % Immature Gran % (Auto) (0.00-0.4) % Nucleat RBC Rel Count (0.00-0.1) % Eos # (Auto) (0-0.5) x10^3/uL Immature Gran # (Auto) (0.00-0.03) x10^3u/L Absolute Lymphs (auto) (1.0-4.6) x10^3/uL Absolute Monos (auto) (0.0-1.3) x10^3/uL Absolute Nucleated RBC (0.00-0.01) x10^3u/L Lymphocytes % (24.0-44.0) % Monocytes % (0.0-12.0) % Eosinophils % (0.00-5.0) % Basophils % (0.0-0.4) % Absolute Granulocytes (1.4-6.9) x10^3/uL Basophils # (0-0.4) x10^3/uL Sodium (137-145) mmol/L Potassium (3.5-5.1) mmol/L Chloride (98-107) mmol/L Carbon Dioxide (22-30) mmol/L Anion Gap (5-15) MEQ/L BUN (7-17) mg/dL Creatinine (0.52-1.04) mg/dL Estimated GFR ML/MIN Glucose (74-106) mg/dL Calcium (8.4-10.2) mg/dL Total Bilirubin (0.2-1.3) mg/dL AST (14-36) U/L ALT (0-35) U/L Alkaline Phosphatase (38-126) U/L Troponin I (0.000-0.034) ng/mL Serum Total Protein (6.3-8.2) g/dL Albumin (3.5-5.0) g/dL Amylase (30-110) U/L Lipase (23-300) U/L Urine Color Dark Yellow A (Yellow) Urine Appearance Clear (Clear) Urine pH 6.0 (4.6-8.0) Ur Specific [place] 1.020 (1.005-1.030) Urine Protein Trace A (Negative) Urine Glucose (UA) 100 A (Negative) mg/dL Urine Ketones Trace A (Negative) Urine Blood Large A (Negative) Urine Nitrite Negative (Negative) Urine Bilirubin Negative (Negative) Urine Urobilinogen 1.0 A (0.2) mg/dL Ur Leukocyte Esterase Trace A (Negative) U Hyaline Cast (Auto) NONE SEEN (0-2) /LPF Urine Microscopic RBC >100 A (0-5) /HPF Urine Microscopic WBC 3-5 (0-5) /HPF Ur Epithelial Cells Rare (None Seen) /HPF Urine Bacteria None Seen (None Seen) /HPF Urine Culture Reflexed YES (NO) Slides for Path Review - Progress Progress: improved Progress Note: 11/24/22 16:49 Nursing note and vital signs reviewed No food or housing insecurities noted All labs reviewed and shared w pt CT result reviewed and shared w pt Additional history per SO 100mcg IV Fentanyl/4mg IV Zofran w improvement in pain Pt has appointment w Dr. tompkins tomorrow Counseled pt/family regarding: lab results, diagnosis, need for follow-up, [facility] [place] Medical Desision Making - Independent Historian Additional History obtained from: Spouse - Diagnostic Testing Diagnostic test were ordered, analyzed, and reviewed by me: Yes Radiological Interpretation: Interpreted by me - Risk of complications The pt has a mod risk of morbidity or mortality based on: Need for prescription drug management - Departure Departure Disposition: Home Clinical Impression: Post-op pain, UTI (urinary tract infection) Condition: Stable Critical Care Time: No Referrals: KARLA LANDA MD [Primary Care Provider] - Follow up/PCP as directed Instructions: Severe Abdominal Pain, Adult (DC) Additional Instructions: Follow up with Dr. Tompkins tomorrow Start macrobid Pain meds as needed Stool softener w pain meds Return to ER as needed Prescriptions: Nitrofurantoin Macro 100 mg [Macrobid 100MG Capsule] 100 mg PO BID 5 Days #10 cap Oxycodone / APAP 10/325 mg [Oxycodone-Acetaminophen 10-325] 1 tab PO Q4- 6HPRN PRN #4 tablet MDD 3 tabs PRN Reason: Pain
[2022-11-24 16:12] VITALS: BP 135/80
[2022-11-24] MEDS ORDERED: SUBLIMAZE 100 MCG/2 ML IV ONE (16:24)
[2022-11-24] MEDS ORDERED: Zofran 4 MG/2 ML VIAL IV ONE (16:24)
[2022-11-24] MEDS ORDERED: Zofran 4 MG/2 ML VIAL ONE (16:25)
[2022-11-24] MEDS ORDERED: SUBLIMAZE 100 MCG/2 ML ONE (16:25)
--- NOTE | 2022-11-24 16:34 | XRAY ---
Indication: Right upper quadrant pain. Status post cholecystectomy one week. Multiple contiguous axial images obtained through the abdomen and pelvis without contrast. Comparison: June 14, 2022 Lung bases demonstrates stable right posterior gutter calcified granuloma. No infiltrate or effusion. Heart not enlarged. Noncontrasted stomach and bowel loops appear nonobstructed with normal appendix. Interval cholecystectomy. No free fluid/air. Again 14.4 cm splenomegaly. Remaining liver, pancreas, spleen, adrenal glands, kidneys, ureters, bladder, and uterus are unremarkable for noncontrast exam. Again minimal aortoiliac calcifications without AAA. Osseous structures intact. No ventral or inguinal hernias. Impression: 1. Status post cholecystectomy. No complications. 2. Again incidental splenomegaly, arteriosclerotic disease, and old granulomatous disease. 3. Remaining CT abdomen/pelvis without contrast exam continues to be negative.
[2022-11-24 16:51] VITALS: PULSE 92
[2022-11-24 17:03] VITALS: O2SAT 97
== END 2022-11-24 16:55 | disposition home or self-care (01) ==
LOC: ED 14:09
DX: G89.18 Other acute postprocedural pain (principal); R10.11 Right upper quadrant pain; N39.0 Urinary tract infection, site not specified; R11.2 Nausea with vomiting, unspecified; R19.7 Diarrhea, unspecified; I10 Essential (primary) hypertension; E10.9 Type 1 diabetes mellitus without complications; Z79.891 Long term (current) use of opiate analgesic; Z79.899 Other long term (current) drug therapy; Z28.310 Unvaccinated for COVID-19
CPT/HCPCS: 36000; 36415; 74176; 80053; 81001; 82150; 83605; 83690; 84484; 85025; 87086; 96374; 96375; 99284; J2405; J3010

== ENCOUNTER 2022-12-17 07:00 | Emergency (ER) | payer OTHER ==
[2022-12-17 07:18] VITALS: TEMP 97.1; O2SAT 97
--- NOTE | 2022-12-17 07:28 | ERPHSYRPT ---
- History of Present Illness Time Seen by Provider: 12/17/22 07:15 Historian: patient Exam Limitations: no limitations Patient Subjective Stated Complaint: Pt states that she began having pain in her left flank yesterday and it has radiated to the LLQ Triage Nursing Assessment: Pt was brought to the ER by her , tachycardic, hypertensive, rates pain as an 8/10, N&V, denies hematuria, tender to palpatation to the left flank that radiates to the LLQ, pulses normal, skin n/w/d, appears to be in moderate pain Physician History: Patient is a 37-year-old white female who presents with complaint of pain in the left flank and left lower quadrant for 2 days. She has had nausea and vomiting but no diarrhea no fever she had a normal bowel movement this morning. She has noted no change in urination and specifically has noted no blood. She rates her pain 8 of 10. Timing/Duration: yesterday Activities at Onset: none Quality: stabbing, throbbing Pain Radiation: LLQ Severity of Pain-Max: severe Severity of Pain-Current: moderate Allergies/Adverse Reactions: clindamycin Allergy (Mild, Verified 12/17/22 07:15) Blisters erythromycin base [Erythromycin Base] Allergy (Verified 12/17/22 07:15) Blisters ketorolac [From Toradol] Allergy (Verified 12/17/22 07:15) Lightheadedness Penicillins Allergy (Verified 12/17/22 07:15) Hives Home Medications: Lisinopril 10 mg [Zestril 10 MG] 20 mg PO DAILY 08/07/13 [History] Insulin Lispro [Admelog Solostar] 38 units SQ TIDWMEALS 09/26/21 [History] Insulin Degludec [Tresiba Flextouch U-200] 90 units SQ BID 12/17/22 [History] Hx Tetanus, Diphtheria Vaccination/Date Given: Yes Hx Influenza Vaccination/Date Given: No Hx Pneumococcal Vaccination/Date Given: No Travel Risk - International Travel Have you traveled outside of the country in past 3 weeks: No - Coronavirus Screening Are you exhibiting any of the following symptoms?: No Close contact with a COVID-19 positive Pt in past 14-21 Days: No - Vaccine Status Have you recieved a Covid-19 vaccination: No - Review of Systems Constitutional: No Fever, No Chills Eyes: No Symptoms Ears, Nose, & Throat: No Symptoms Respiratory: No Cough, No Dyspnea Cardiac: No Chest Pain, No Edema, No Syncope Abdominal/Gastrointestinal: Abdominal Pain, Nausea, Vomiting, No Diarrhea Genitourinary Symptoms: No Dysuria Musculoskeletal: No Back Pain, No Neck Pain Skin: No Rash Neurological: No Dizziness, No Focal Weakness, No Sensory Changes Psychological: No Symptoms Endocrine: No Symptoms All Other Systems: Reviewed and Negative - Past Medical History Pertinent Past Medical History: Yes Neurological History: No Pertinent History ENT History: No Pertinent History Cardiac History: Hypertension Respiratory History: No Pertinent History Endocrine Medical History: Diabetes Type I Musculoskeletal History: No Pertinent History GI Medical History: Gallbladder Disease, Other History: No Pertinent History Psycho-Social History: No Pertinent History Female Reproductive Disorders: No Pertinent History Other Medical History: celiac - Past Surgical History Past Surgical History: Yes Gastrointestinal: Cholecystectomy Other Surgical History: . - Social History Smoking Status: Never smoker Exposure to second hand smoke: Yes Drug Use: none Patient Lives Alone: No - Female History Hx Last Menstrual Period: 11/18/2022 Hx Now: No - Nursing Vital Signs Nursing Vital Signs: Initial Vital Signs Temperature 97.1 F 12/17/22 07:08 Pulse Rate 108 H 12/17/22 07:08 Blood Pressure 164/104 12/17/22 07:08 O2 Sat by Pulse Oximetry 97 12/17/22 07:08 Pain Scale Pain Intensity 8 - Physical Exam General Appearance: moderate distress, alert Eye Exam: PERRL/EOMI, eyes nml inspection Ears, Nose, Throat Exam: normal ENT inspection, pharynx normal, moist mucous membranes Neck Exam: normal inspection, non-tender, supple, full range of motion Respiratory Exam: normal breath sounds, lungs clear, No respiratory distress Cardiovascular Exam: regular rate/rhythm, normal heart sounds Gastrointestinal/Abdomen Exam: soft, No tenderness, No mass Back Exam: normal inspection, normal range of motion, CVA tenderness (left), No vertebral tenderness Extremity Exam: normal inspection, normal range of motion, pelvis stable Neurologic Exam: alert, oriented x 3, cooperative, normal mood/affect, nml cerebellar function, sensation nml, No motor deficits Skin Exam: normal color, warm, dry SpO2: 97 - Course Nursing assessment & vital signs reviewed: Yes - CT Exams Abdomen/Pelvis CT Interpretation: Other (CT scan showed a 2.5 cm cyst on the left which is new and is the only possible explanation for her pain that we see from her imaging today.) Ordered Tests: Active Orders 24 hr Category Date Time Status IV Insertion STAT Care 12/17/22 07:19 Active ABDOMEN AND PELVIS W/0 CONTRAS [CT] Stat Exams 12/17/22 07:20 Completed AMYLASE Stat Lab 12/17/22 07:30 Completed CBC W DIFF Stat Lab 12/17/22 07:30 Completed CMP Stat Lab 12/17/22 07:30 Completed LIPASE Stat Lab 12/17/22 07:30 Completed Lactic Acid Stat Lab 12/17/22 07:43 Completed UA W/RFX UR CULTURE Stat Lab 12/17/22 07:31 Completed Urine Triage Profile Stat Lab 12/17/22 07:31 Completed Medication Summary Discontinued Medications Generic Name Dose Route Start Last Admin Trade Name Freq PRN Reason Stop Dose Admin Hydromorphone HCl 1 mg 12/17/22 07:19 12/17/22 07:44 Hydromorphone 1 Mg/1ml Inj IV 12/17/22 07:20 1 mg STAT ONE Administration Hydromorphone HCl Confirm 12/17/22 07:32 Hydromorphone 1 Mg/1ml Inj Administered 12/17/22 07:33 Dose 1 mg .ROUTE .STK-MED ONE Hydromorphone HCl 1 mg 12/17/22 08:43 12/17/22 08:48 Hydromorphone 1 Mg/1ml Inj IV 12/17/22 08:44 1 mg STAT ONE Administration Hydromorphone HCl Confirm 12/17/22 08:42 Hydromorphone 1 Mg/1ml Inj Administered 12/17/22 08:43 Dose 1 mg .ROUTE .STK-MED ONE Sodium Chloride 1,000 mls @ 999 mls/hr 12/17/22 07:19 12/17/22 09:19 Sodium Chloride 0.9% 1000 Ml IV 12/17/22 08:19 Infused .Q1H1M STA Infusion Sodium Chloride Confirm 12/17/22 07:32 Sodium Chloride 0.9% 1000 Ml Administered 12/17/22 07:33 Dose 1,000 mls @ ud .ROUTE .STK-MED ONE Sodium Chloride 1,000 mls @ 999 mls/hr 12/17/22 09:05 12/17/22 09:15 Sodium Chloride 0.9% 1000 Ml IV 12/17/22 10:05 999 mls/hr .Q1H1M STA Administration Sodium Chloride Confirm 12/17/22 09:15 Sodium Chloride 0.9% 1000 Ml Administered 12/17/22 09:16 Dose 1,000 mls @ ud .ROUTE .STK-MED ONE Ketorolac Tromethamine Confirm 12/17/22 08:41 Ketorolac Tromethamine 30 Mg/Ml Inj Administered 12/17/22 08:42 Dose 30 mg .ROUTE .STK-MED ONE Metoclopramide HCl 10 mg 12/17/22 07:19 12/17/22 07:49 Metoclopramide Hcl 10 Mg/2 Ml Vial IV 12/17/22 07:20 10 mg STAT ONE Administration Metoclopramide HCl Confirm 12/17/22 07:48 Metoclopramide Hcl 10 Mg/2 Ml Vial Administered 12/17/22 07:49 Dose 10 mg .ROUTE .STK-MED ONE Ondansetron HCl Confirm 12/17/22 07:32 Ondansetron Hcl 4 Mg/2 Ml Vial Administered 12/17/22 07:33 Dose 4 mg .ROUTE .STK-MED ONE Ondansetron HCl 4 mg 12/17/22 08:43 12/17/22 08:52 Ondansetron Hcl 4 Mg/2 Ml Vial IV 12/17/22 08:44 4 mg STAT ONE Administration Ondansetron HCl Confirm 12/17/22 08:41 Ondansetron Hcl 4 Mg/2 Ml Vial Administered 12/17/22 08:42 Dose 4 mg .ROUTE .STK-MED ONE Lab/Rad Data: Laboratory Result Diagrams 12/17/22 07:30 12/17/22 07:30 Laboratory Results 12/17/22 12/17/22 12/17/22 Range/Units 07:43 07:31 07:31 WBC (4.0-10.5) x10^3/uL RBC (4.1-5.4) x10^6/uL Hgb (12.0-16.0) g/dL Hct (35-47) % MCV (78-100) fL MCH (26-32) pg MCHC (32-36) g/dL RDW (11.5-14.0) % Plt Count (150-450) x10^3/uL MPV (7.5-11.0) fL Gran % (36.0-66.0) % Immature Gran % (Auto) (0.00-0.4) % Nucleat RBC Rel Count (0.00-0.1) % Eos # (Auto) (0-0.5) x10^3/uL Immature Gran # (Auto) (0.00-0.03) x10^3u/L Absolute Lymphs (auto) (1.0-4.6) x10^3/uL Absolute Monos (auto) (0.0-1.3) x10^3/uL Absolute Nucleated RBC (0.00-0.01) x10^3u/L Lymphocytes % (24.0-44.0) % Monocytes % (0.0-12.0) % Eosinophils % (0.00-5.0) % Basophils % (0.0-0.4) % Absolute Granulocytes (1.4-6.9) x10^3/uL Basophils # (0-0.4) x10^3/uL Sodium (137-145) mmol/L Potassium (3.5-5.1) mmol/L Chloride (98-107) mmol/L Carbon Dioxide (22-30) mmol/L Anion Gap (5-15) MEQ/L BUN (7-17) mg/dL Creatinine (0.52-1.04) mg/dL Estimated GFR ML/MIN Glucose (74-106) mg/dL Lactic Acid 1.3 (0.4-2.0) Calcium (8.4-10.2) mg/dL Total Bilirubin (0.2-1.3) mg/dL AST (14-36) U/L ALT (0-35) U/L Alkaline Phosphatase (38-126) U/L Serum Total Protein (6.3-8.2) g/dL Albumin (3.5-5.0) g/dL Amylase (30-110) U/L Lipase (23-300) U/L Urine Color Yellow (Yellow) Urine Appearance Clear (Clear) Urine pH 6.5 (4.6-8.0) Ur Specific [place] 1.020 (1.005-1.030) Urine Protein Trace A (Negative) Urine Glucose (UA) >=1000 A (Negative) mg/dL Urine Ketones 80 A (Negative) Urine Blood Negative (Negative) Urine Nitrite Negative (Negative) Urine Bilirubin Negative (Negative) Urine Urobilinogen 1.0 A (0.2) mg/dL Ur Leukocyte Esterase Negative (Negative) U Hyaline Cast (Auto) NONE SEEN (0-2) /LPF Urine Microscopic RBC 0-2 (0-5) /HPF Urine Microscopic WBC 0-2 (0-5) /HPF Ur Epithelial Cells None Seen (None Seen) /HPF Urine Bacteria None Seen (None Seen) /HPF Urine Culture Reflexed NO (NO) Urine Opiates Level NEGATIVE (NEGATIVE) Ur Methadone NEGATIVE (NEGATIVE) Urine Barbiturates NEGATIVE (NEGATIVE) Ur Phencyclidine (PCP) NEGATIVE (NEGATIVE) Urine Amphetamine NEGATIVE (NEGATIVE) U Benzodiazepine Level NEGATIVE (NEGATIVE) Urine Cocaine NEGATIVE (NEGATIVE) Urine Marijuana (THC) NEGATIVE (NEGATIVE) Slides for Path Review 12/17/22 12/17/22 Range/Units 07:30 07:30 WBC 10.6 H (4.0-10.5) x10^3/uL RBC 5.04 (4.1-5.4) x10^6/uL Hgb 12.2 (12.0-16.0) g/dL Hct 39.3 (35-47) % MCV 78.0 (78-100) fL MCH 24.2 L (26-32) pg MCHC 31.0 L (32-36) g/dL RDW 15.4 H (11.5-14.0) % Plt Count 234 (150-450) x10^3/uL MPV 9.4 (7.5-11.0) fL Gran % 91.1 H (36.0-66.0) % Immature Gran % (Auto) 0.4 (0.00-0.4) % Nucleat RBC Rel Count 0.0 (0.00-0.1) % Eos # (Auto) 0.03 (0-0.5) x10^3/uL Immature Gran # (Auto) 0.04 H (0.00-0.03) x10^3u/L Absolute Lymphs (auto) 0.48 L (1.0-4.6) x10^3/uL Absolute Monos (auto) 0.38 (0.0-1.3) x10^3/uL Absolute Nucleated RBC 0.00 (0.00-0.01) x10^3u/L Lymphocytes % 4.5 L (24.0-44.0) % Monocytes % 3.6 (0.0-12.0) % Eosinophils % 0.3 (0.00-5.0) % Basophils % 0.1 (0.0-0.4) % Absolute Granulocytes 9.64 H (1.4-6.9) x10^3/uL Basophils # 0.01 (0-0.4) x10^3/uL Sodium 134 L (137-145) mmol/L Potassium 4.3 (3.5-5.1) mmol/L Chloride 100 (98-107) mmol/L Carbon Dioxide 22 (22-30) mmol/L Anion Gap 17.1 H (5-15) MEQ/L BUN 7 (7-17) mg/dL Creatinine 0.47 L (0.52-1.04) mg/dL Estimated GFR > 60.0 ML/MIN Glucose 281 H (74-106) mg/dL Lactic Acid (0.4-2.0) Calcium 9.3 (8.4-10.2) mg/dL Total Bilirubin 1.00 (0.2-1.3) mg/dL AST 33 (14-36) U/L ALT 34 (0-35) U/L Alkaline Phosphatase 95 (38-126) U/L Serum Total Protein 7.5 (6.3-8.2) g/dL Albumin 4.1 (3.5-5.0) g/dL Amylase 48 (30-110) U/L Lipase 36 (23-300) U/L Urine Color (Yellow) Urine Appearance (Clear) Urine pH (4.6-8.0) Ur Specific [place] (1.005-1.030) Urine Protein (Negative) Urine Glucose (UA) (Negative) mg/dL Urine Ketones (Negative) Urine Blood (Negative) Urine Nitrite (Negative) Urine Bilirubin (Negative) Urine Urobilinogen (0.2) mg/dL Ur Leukocyte Esterase (Negative) U Hyaline Cast (Auto) (0-2) /LPF Urine Microscopic RBC (0-5) /HPF Urine Microscopic WBC (0-5) /HPF Ur Epithelial Cells (None Seen) /HPF Urine Bacteria (None Seen) /HPF Urine Culture Reflexed (NO) Urine Opiates Level (NEGATIVE) Ur Methadone (NEGATIVE) Urine Barbiturates (NEGATIVE) Ur Phencyclidine (PCP) (NEGATIVE) Urine Amphetamine (NEGATIVE) U Benzodiazepine Level (NEGATIVE) Urine Cocaine (NEGATIVE) Urine Marijuana (THC) (NEGATIVE) Slides for Path Review YES - Progress Progress: improved Medical Desision Making - Diagnostic Testing Diagnostic test were ordered, analyzed, and reviewed by me: Yes Radiological Interpretation: Reviewed by me - Risk of complications The pt has a mod risk of morbidity or mortality based on: Need for prescription drug management - Departure Departure Disposition: Home Clinical Impression: Ovarian cyst, Nausea and vomiting, Abdominal pain, left lower quadrant Condition: Stable Critical Care Time: No Referrals: KARLA LANDA MD [Primary Care Provider] - Follow up/PCP as directed Instructions: Severe Abdominal Pain, Adult (DC) Prescriptions: Hydrocodone/Acetaminophen [Hydrocodone-Acetamin 5-325 mg] 1 tab PO Q6HPRN PRN 3 Days #12 tablet MDD 4 PRN Reason: Pain Ondansetron ODT 4 MG [Zofran Odt 4 mg] 4 mg PO Q6H PRN PRN #10 tablet PRN Reason: Vomiting
[2022-12-17] MEDS ORDERED: Hydromorphone 1 mg/ml Injection ONE ×2 (07:32→08:42)
[2022-12-17] MEDS ORDERED: Sodium Chloride 0.9% 1000 ML 1,000 ML ONE ×2 (07:32→09:15)
[2022-12-17] MEDS ORDERED: Zofran 4 MG/2 ML VIAL ONE ×2 (07:32→08:41)
[2022-12-17 07:36] LABS: Absolute Neutrophil Ct (ANC) 9.64 x10^3/uL (1.4-6.9); BASOPHIL % 0.1 % (0.0-0.4); Basophil (Absolute #) 0.01 x10^3/uL (0-0.4); Eosinophil % 0.3 % (0.00-5.0); Eosinophil (Absolute #) 0.03 x10^3/uL (0-0.5); Hematocrit 39.3 % (35-47); Hemoglobin 12.2 g/dL (12.0-16.0); IMMATURE GRAN # 0.04 x10^3u/L (0.00-0.03); IMMATURE GRAN % 0.4 % (0.00-0.4); Lymphocyte (Absolute #) 0.48 x10^3/uL (1.0-4.6); Lymphocytes % 4.5 % (24.0-44.0); Mean Corpuscular Hemoglobin 24.2 pg (26-32); Mean Platelet Volume 9.4 fL (7.5-11.0); Monocyte (Absolute #) 0.38 x10^3/uL (0.0-1.3); Monocytes % 3.6 % (0.0-12.0); Neutrophil % 91.1 % (36.0-66.0); Platelet Count 234 x10^3/uL (150-450); Red Blood Count 5.04 x10^6/uL (4.1-5.4); Red Cell Distribution Width 15.4 % (11.5-14.0); White Blood Count 10.6 x10^3/uL (4.0-10.5)
[2022-12-17] MEDS: Hydromorphone 1 mg/ml Injection IV ONE ×2 (07:44→08:48)
[2022-12-17 07:48] LABS: Appearance Clear (Clear); Bacteria None Seen /HPF (None Seen); Bilirubin Negative (Negative); Blood Negative (Negative); Epithelial Cells None Seen /HPF (None Seen); Glucose, Urine >=1000 mg/dL (Negative); Hyaline Casts NONE SEEN /LPF (0-2); Ketones 80 (Negative); Leukocyte Esterase Negative (Negative); Nitrite Negative (Negative); Ph 6.5 (4.6-8.0); Protein,Urine Dip Trace (Negative); RBC 0-2 /HPF (0-5); WBC 0-2 /HPF (0-5)
[2022-12-17] MEDS ORDERED: Reglan 10 MG/2 ML ONE (07:48)
[2022-12-17] MEDS: Reglan 10 MG/2 ML IV ONE (07:49)
[2022-12-17] MEDS: Sodium Chloride 0.9% 1000 ML 1,000 ML IV STA ×2 (07:54→09:15)
[2022-12-17 07:57] LABS: ADD URINE CULTURE? NO (NO)
[2022-12-17 07:59] LABS: ALBUMIN 4.1 g/dL (3.5-5.0); ALKALINE PHOSPHATASE 95 U/L (38-126); AMYLASE 48 U/L (30-110); ANION GAP 17.1 MEQ/L (5-15); BLOOD UREA NITROGEN 7 mg/dL (7-17); CHLORIDE 100 mmol/L (98-107); Calcium 9.3 mg/dL (8.4-10.2); Carbon Dioxide 22 mmol/L (22-30); Creatinine 1 0.47 mg/dL (0.52-1.04); EST GLOMERULAR FILTRATION RATE > 60.0 ML/MIN; Glucose 281 mg/dL (74-106); LIPASE 36 U/L (23-300); Potassium 4.3 mmol/L (3.5-5.1); SGOT/AST 33 U/L (14-36); SGPT/ALT 34 U/L (0-35); SODIUM 134 mmol/L (137-145); Total Protein 7.5 g/dL (6.3-8.2)
[2022-12-17 08:09] LABS: Amphetamine,Urine NEGATIVE (NEGATIVE); Barbiturate,Urine NEGATIVE (NEGATIVE); Benzodiazepine,Urine NEGATIVE (NEGATIVE); Cocaine,Urine NEGATIVE (NEGATIVE); Methadone,Urine NEGATIVE (NEGATIVE); Opiate,Urine NEGATIVE (NEGATIVE); PCP,Urine NEGATIVE (NEGATIVE); THC,Urine NEGATIVE (NEGATIVE)
[2022-12-17 08:30] LABS: Slide Review 1 YES
[2022-12-17] MEDS ORDERED: TORAdol 30 mg Injection ONE (08:41)
--- NOTE | 2022-12-17 08:49 | XRAY ---
Indication: Left flank pain. Multiple contiguous axial images obtained through the abdomen and pelvis without contrast. Comparison: November 24, 2022 Lung bases demonstrates stable right posterior gutter calcified granuloma. Heart not enlarged. Noncontrasted stomach and bowel loops remain nonobstructed again with normal appendix. New 2.5 cm left ovary cyst. No free fluid/air. Stable hepatic calcified granuloma, 15 cm splenomegaly, and cholecystectomy. Remaining liver, pancreas, spleen, adrenal glands, kidneys, ureters, bladder, and uterus are unremarkable for noncontrast exam. Again minimal aortoiliac calcifications without AAA. Impression: 1. New 2.5 cm left ovary cyst. 2. Again chronic findings including splenomegaly, arteriosclerotic disease, and old granulomatous disease. 3. Remaining CT abdomen/pelvis without contrast exam continues to be negative.
[2022-12-17] MEDS: Zofran 4 MG/2 ML VIAL IV ONE (08:52)
[2022-12-17 10:22] VITALS: BP 193/96; PULSE 94
== END 2022-12-17 10:21 | disposition home or self-care (01) ==
LOC: ED 07:00
DX: N83.202 Unspecified ovarian cyst, left side (principal); R11.2 Nausea with vomiting, unspecified; R10.32 Left lower quadrant pain; I10 Essential (primary) hypertension; E10.9 Type 1 diabetes mellitus without complications; Z79.4 Long term (current) use of insulin; Z79.891 Long term (current) use of opiate analgesic; Z79.899 Other long term (current) drug therapy; Z28.310 Unvaccinated for COVID-19
CPT/HCPCS: 36415; 74176; 80053; 80307; 81001; 82150; 83605; 83690; 85025; 96360; 96374; 96375; 96376; 99284; J1170; J1885; J2405

== ENCOUNTER 2023-03-07 17:15 | Emergency (ER) | payer OTHER ==
[2023-03-07 17:44] VITALS: TEMP 97.2
[2023-03-07] MEDS ORDERED: Hydromorphone 1 mg/ml Injection IV ONE ×2 (17:49→20:44)
[2023-03-07] MEDS ORDERED: Zofran 4 MG/2 ML VIAL IV ONE (17:49)
[2023-03-07] MEDS ORDERED: Sodium Chloride 0.9% 1000 ML 1,000 ML IV STA (17:49)
--- NOTE | 2023-03-07 17:56 | ERPHSYRPT ---
- History of Present Illness Historian: patient Exam Limitations: no limitations Patient Subjective Stated Complaint: Pt reports yesterday she started having urinary burning and frequency along with left lower back pain and left lower abdominal pain into pelvic region along with vomiting. Has been taking azos with no relief. Went to [facility] in [place] this morning and was told they were not sure if she had a UTI for certain but were going to treat her as if she did, started her on macrobid and sent zofran in. Pt states they were supposed to send sublingual zofran but sent in po to swallow and as soon as she swallows the zofran she vomits. Took one tab of macrobid today. Triage Nursing Assessment: Pt alert and oriented x3. Respirations easy/nonlabored. Skin w/p/d with facial flushing. Afebrile, denies any fevers at home. Accompanied by spouse. Tenderness to left lower side of back with palpitation, no obvious deformities/bruising to lower back. Timing/Duration: yesterday Activities at Onset: none Quality: stabbing Abdominal Pain Onset Location: flank Pain Radiation: LLQ Severity of Pain-Max: severe Severity of Pain-Current: moderate Associated Symptoms: nausea, vomiting Hx Tetanus, Diphtheria Vaccination/Date Given: Yes Hx Influenza Vaccination/Date Given: No Hx Pneumococcal Vaccination/Date Given: No <NESS CROFT - Last Filed: 03/07/23 18:44> <Sina Regan - Last Filed: 03/07/23 22:48> - History of Present Illness Time Seen by Provider: 03/07/23 17:52 Physician History: Patient is a 37-year-old white female who presents with a complaint of abdominal pain which started in the left flank left CVA area rotating and radiating around to the left lower quadrant. She has had nausea and vomiting she is also had dysuria this all started yesterday she went to [facility] this morning and was told that they thought she might have a UTI and they started on Macrobid which she could not take because she was vomiting Zofran was called in and was supposed to be sublingual but was a pill and she vomited it to. (NESS CROFT) Allergies/Adverse Reactions: clindamycin Allergy (Mild, Verified 03/07/23 17:30) Blisters erythromycin base [Erythromycin Base] Allergy (Verified 03/07/23 17:30) Blisters ketorolac [From Toradol] Allergy (Verified 03/07/23 17:30) Lightheadedness Penicillins Allergy (Verified 03/07/23 17:30) Hives Home Medications: Lisinopril 10 mg [Zestril 10 MG] 20 mg PO DAILY 08/07/13 [History] Insulin Lispro [Admelog Solostar] 38 units SQ TIDWMEALS 09/26/21 [History] Insulin Degludec [Tresiba Flextouch U-200] 90 units SQ BID 12/17/22 [History] Amlodipine Besylate 5 mg [Norvasc 5 mg] 5 mg PO DAILY 03/07/23 [History] Atorvastatin Calcium 20 mg PO HS 03/07/23 [History] Nitrofurantoin Macro 100 mg [Macrobid 100MG Capsule] 1 tab PO BID 03/07/23 [History] Tramadol HCl 50 mg [Ultram 50 mg] 50 mg PO DAILY 03/07/23 [History] Travel Risk - International Travel Have you traveled outside of the country in past 3 weeks: No - Coronavirus Screening Are you exhibiting any of the following symptoms?: Yes Symptoms: Vomiting/Diarrhea Close contact with a COVID-19 positive Pt in past 14-21 Days: No - Vaccine Status Have you recieved a Covid-19 vaccination: No <NESS CROFT - Last Filed: 03/07/23 18:44> - Review of Systems Constitutional: No Fever, No Chills Eyes: No Symptoms Ears, Nose, & Throat: No Symptoms Respiratory: No Cough, No Dyspnea Cardiac: No Chest Pain, No Edema, No Syncope Abdominal/Gastrointestinal: Nausea, Vomiting, No Abdominal Pain, No Diarrhea Genitourinary Symptoms: Dysuria, Frequency, Urgency, Flank Pain Musculoskeletal: No Back Pain, No Neck Pain Skin: No Rash Neurological: No Dizziness, No Focal Weakness, No Sensory Changes Psychological: No Symptoms Endocrine: No Symptoms All Other Systems: Reviewed and Negative <NESS CROFT - Last Filed: 03/07/23 18:44> - Past Medical History Pertinent Past Medical History: Yes Neurological History: No Pertinent History ENT History: No Pertinent History Cardiac History: Hypertension Respiratory History: No Pertinent History Endocrine Medical History: Diabetes Type I Musculoskeletal History: No Pertinent History GI Medical History: Gallbladder Disease, Other History: No Pertinent History Psycho-Social History: No Pertinent History Female Reproductive Disorders: No Pertinent History Other Medical History: celiac - Past Surgical History Past Surgical History: Yes Gastrointestinal: Cholecystectomy Other Surgical History: . - Social History Smoking Status: Never smoker Exposure to second hand smoke: Yes Drug Use: none Patient Lives Alone: No - Female History Hx Last Menstrual Period: 02/22/23 Hx Now: No <NESS CROFT Filed: 03/07/23 18:44> - Physical Exam General Appearance: mild distress, alert Eye Exam: PERRL/EOMI, eyes nml inspection Ears, Nose, Throat Exam: normal ENT inspection, pharynx normal, moist mucous membranes Neck Exam: normal inspection, non-tender, supple, full range of motion Respiratory Exam: normal breath sounds, lungs clear, No respiratory distress Cardiovascular Exam: regular rate/rhythm, normal heart sounds Gastrointestinal/Abdomen Exam: soft, normal bowel sounds, tenderness, No mass Back Exam: normal inspection, normal range of motion, CVA tenderness (Left left lower quadrant left CVA tenderness), No vertebral tenderness Extremity Exam: normal inspection, normal range of motion, pelvis stable Neurologic Exam: alert, oriented x 3, cooperative, normal mood/affect, nml cere bellar function, sensation nml, No motor deficits Skin Exam: normal color, warm, dry SpO2 Interpretation: normal SpO2: 97 O2 Delivery: Room Air <NESS CROFT Filed: 03/07/23 18:44> - Nursing Vital Signs Nursing Vital Signs: Initial Vital Signs Temperature 97.2 F 03/07/23 17:30 Pulse Rate 98 H 03/07/23 17:30 Respiratory Rate 16 03/07/23 17:30 Blood Pressure 190/104 03/07/23 17:30 O2 Sat by Pulse Oximetry 97 03/07/23 17:30 Pain Scale Pain Intensity [Left Lower 9 Back] Pain Intensity 6 - Course Nursing assessment & vital signs reviewed: Yes <NESS CROFT Filed: 03/07/23 18:44> Ordered Tests: Active Orders 24 hr Category Date Time Status IV Insertion STAT Care 03/07/23 17:49 Active ABDOMEN AND PELVIS W/0 CONTRAS [CT] Stat Exams 03/07/23 17:50 Completed PELVIS TRANS VAGINAL [US] Stat Exams 03/07/23 20:23 Taken AMYLASE Stat Lab 03/07/23 18:10 Completed CBC W DIFF Stat Lab 03/07/23 18:10 Completed CMP Stat Lab 03/07/23 18:10 Completed CULTURE,URINE Stat Lab 03/07/23 17:44 Received HCG QUALITATIVE, URINE Stat Lab 03/07/23 18:44 Completed LIPASE Stat Lab 03/07/23 18:10 Completed Lactic Acid Stat Lab 03/07/23 17:49 Completed UA W/RFX UR CULTURE Stat Lab 03/07/23 17:44 Completed Medication Summary Discontinued Medications Generic Name Dose Route Start Last Admin Trade Name Freq PRN Reason Stop Dose Admin Hydromorphone HCl 1 mg 03/07/23 17:49 03/07/23 18:02 Hydromorphone 1 Mg/1ml Inj IV 03/07/23 17:50 1 mg STAT ONE Administration Hydromorphone HCl Confirm 03/07/23 17:59 Hydromorphone 1 Mg/1ml Inj Administered 03/07/23 18:00 Dose 1 mg .ROUTE .STK-MED ONE Hydromorphone HCl 0.5 mg 03/07/23 20:44 03/07/23 21:05 Hydromorphone 1 Mg/1ml Inj IV 03/07/23 20:45 0.5 mg STAT ONE Administration Hydromorphone HCl Confirm 03/07/23 21:04 Hydromorphone 1 Mg/1ml Inj Administered 03/07/23 21:05 Dose 1 mg .ROUTE .STK-MED ONE Sodium Chloride 1,000 mls @ 999 mls/hr 03/07/23 17:49 03/07/23 19:24 Sodium Chloride 0.9% 1000 Ml IV 03/07/23 18:49 Infused .Q1H1M STA Infusion Sodium Chloride Confirm 03/07/23 18:00 Sodium Chloride 0.9% 1000 Ml Administered 03/07/23 18:01 Dose 1,000 mls @ ud .ROUTE .STK-MED ONE Ondansetron HCl 4 mg 03/07/23 17:49 03/07/23 18:02 Ondansetron Hcl 4 Mg/2 Ml Vial IV 03/07/23 17:50 4 mg STAT ONE Administration Ondansetron HCl Confirm 03/07/23 17:59 Ondansetron Hcl 4 Mg/2 Ml Vial Administered 03/07/23 18:00 Dose 4 mg .ROUTE .STK-MED ONE Lab/Rad Data: Laboratory Result Diagrams 03/07/23 18:10 03/07/23 18:10 Laboratory Results 03/07/23 03/07/23 03/07/23 Range/Units 18:44 18:10 18:10 WBC 9.7 (4.0-10.5) x10^3/uL RBC 5.05 (4.1-5.4) x10^6/uL Hgb 11.7 L (12.0-16.0) g/dL Hct 38.8 (35-47) % MCV 76.8 L (78-100) fL MCH 23.2 L (26-32) pg MCHC 30.2 L (32-36) g/dL RDW 15.8 H (11.5-14.0) % Plt Count 266 (150-450) x10^3/uL MPV 9.3 (7.5-11.0) fL Gran % 86.9 H (36.0-66.0) % Immature Gran % (Auto) 0.4 (0.00-0.4) % Nucleat RBC Rel Count 0.0 (0.00-0.1) % Eos # (Auto) 0.06 (0-0.5) x10^3/uL Immature Gran # (Auto) 0.04 H (0.00-0.03) x10^3u/L Absolute Lymphs (auto) 0.75 L (1.0-4.6) x10^3/uL Absolute Monos (auto) 0.41 (0.0-1.3) x10^3/uL Absolute Nucleated RBC 0.00 (0.00-0.01) x10^3u/L Lymphocytes % 7.7 L (24.0-44.0) % Monocytes % 4.2 (0.0-12.0) % Eosinophils % 0.6 (0.00-5.0) % Basophils % 0.2 (0.0-0.4) % Absolute Granulocytes 8.45 H (1.4-6.9) x10^3/uL Basophils # 0.02 (0-0.4) x10^3/uL Sodium 135 L (137-145) mmol/L Potassium 3.9 (3.5-5.1) mmol/L Chloride 101 (98-107) mmol/L Carbon Dioxide 30 (22-30) mmol/L Anion Gap 8.0 (5-15) MEQ/L BUN 11 (7-17) mg/dL Creatinine 0.50 L (0.52-1.04) mg/dL Estimated GFR > 60.0 ML/MIN Glucose 220 H (74-106) mg/dL Lactic Acid (0.4-2.0) Calcium 9.3 (8.4-10.2) mg/dL Total Bilirubin 0.60 (0.2-1.3) mg/dL AST 26 (14-36) U/L ALT 29 (0-35) U/L Alkaline Phosphatase 110 (38-126) U/L Serum Total Protein 7.4 (6.3-8.2) g/dL Albumin 4.2 (3.5-5.0) g/dL Amylase 60 (30-110) U/L Lipase 34 (23-300) U/L Urine Color (Yellow) Urine Appearance (Clear) Urine pH (4.6-8.0) Ur Specific [place] (1.005-1.030) Urine Protein (Negative) Urine Glucose (UA) (Negative) mg/dL Urine Ketones (Negative) Urine Blood (Negative) Urine Nitrite (Negative) Urine Bilirubin (Negative) Urine Urobilinogen (0.2) mg/dL Ur Leukocyte Esterase (Negative) U Hyaline Cast (Auto) (0-2) /LPF Urine Microscopic RBC (0-5) /HPF Urine Microscopic WBC (0-5) /HPF Ur Epithelial Cells (None Seen) /HPF Urine Bacteria (None Seen) /HPF Urine Culture Reflexed (NO) Urine HCG, Qual NEGATIVE (NEGATIVE) 03/07/23 03/07/23 Range/Units 17:49 17:44 WBC (4.0-10.5) x10^3/uL RBC (4.1-5.4) x10^6/uL Hgb (12.0-16.0) g/dL Hct (35-47) % MCV (78-100) fL MCH (26-32) pg MCHC (32-36) g/dL RDW (11.5-14.0) % Plt Count (150-450) x10^3/uL MPV (7.5-11.0) fL Gran % (36.0-66.0) % Immature Gran % (Auto) (0.00-0.4) % Nucleat RBC Rel Count (0.00-0.1) % Eos # (Auto) (0-0.5) x10^3/uL Immature Gran # (Auto) (0.00-0.03) x10^3u/L Absolute Lymphs (auto) (1.0-4.6) x10^3/uL Absolute Monos (auto) (0.0-1.3) x10^3/uL Absolute Nucleated RBC (0.00-0.01) x10^3u/L Lymphocytes % (24.0-44.0) % Monocytes % (0.0-12.0) % Eosinophils % (0.00-5.0) % Basophils % (0.0-0.4) % Absolute Granulocytes (1.4-6.9) x10^3/uL Basophils # (0-0.4) x10^3/uL Sodium (137-145) mmol/L Potassium (3.5-5.1) mmol/L Chloride (98-107) mmol/L Carbon Dioxide (22-30) mmol/L Anion Gap (5-15) MEQ/L BUN (7-17) mg/dL Creatinine (0.52-1.04) mg/dL Estimated GFR ML/MIN Glucose (74-106) mg/dL Lactic Acid 1.1 (0.4-2.0) Calcium (8.4-10.2) mg/dL Total Bilirubin (0.2-1.3) mg/dL AST (14-36) U/L ALT (0-35) U/L Alkaline Phosphatase (38-126) U/L Serum Total Protein (6.3-8.2) g/dL Albumin (3.5-5.0) g/dL Amylase (30-110) U/L Lipase (23-300) U/L Urine Color Dark Yellow A (Yellow) Urine Appearance Clear (Clear) Urine pH 6.5 (4.6-8.0) Ur Specific [place] 1.015 (1.005-1.030) Urine Protein Negative (Negative) Urine Glucose (UA) 500 A (Negative) mg/dL Urine Ketones Negative (Negative) Urine Blood Negative (Negative) Urine Nitrite Positive A (Negative) Urine Bilirubin Small A (Negative) Urine Urobilinogen 1.0 A (0.2) mg/dL Ur Leukocyte Esterase Trace A (Negative) U Hyaline Cast (Auto) NONE SEEN (0-2) /LPF Urine Microscopic RBC 0-2 (0-5) /HPF Urine Microscopic WBC 0-2 (0-5) /HPF Ur Epithelial Cells Few (None Seen) /HPF Urine Bacteria None Seen (None Seen) /HPF Urine Culture Reflexed YES (NO) Urine HCG, Qual (NEGATIVE) - Progress Progress: improved Will see patient in: office Counseled pt/family regarding: lab results, diagnosis, rad results <Sina Regan - Last Filed: 03/07/23 22:48> - Progress Progress Note: 03/07/23 19:01 I took over care for this pt following signout w/ Dr Sykes at 19:01 03/07/23 20:[address] abd/pelvis read w/ pt CT showed - 1.4cm nodule in right lung base - will defer f/u to outpatient in absence of respiratory sx b/l enlarged ovaries - radiology recommends US for further evaluation of ovarian pathology mild hepatomegaly mild splenomegaly vascular calcifications all findings unchanged from prior studies Pelvic US ordered 03/07/23 22:40 Pelvic US showed no significant ovarian or uterine pathology pt reports pain and nausea have improved plan to dc home w/ short course pain medication and close pcp f/u (Sina Regan) Medical Desision Making - Diagnostic Testing Diagnostic test were ordered, analyzed, and reviewed by me: Yes Radiological Interpretation: Reviewed by me, Teleradiologist Report - Risk of complications Minimal Risk: Minimal risk of morbidity <Sina Regan - Last Filed: 03/07/23 22:48> - Departure Departure Disposition: Home Critical Care Time: No <NESS CROFT - Last Filed: 03/07/23 18:44> - Departure Departure Disposition: Home Critical Care Time: No <Sina Regan - Last Filed: 03/07/23 22:48> - Departure Clinical Impression: Left flank pain, Abdominal pain, left lower quadrant Nausea and vomiting Qualifiers: Vomiting type: unspecified Qualified Code(s): R11.2 - Nausea with vomiting, unspecified Condition: Stable Referrals: KARLA LANDA MD [NON-STAFF PHY W/O PRIVILEGES] - Follow up/PCP as directed Prescriptions: Hydrocodone/Acetaminophen [Hydrocodone-Acetamin 5-325 mg] 1 tab PO Q6HPRN PRN #12 tablet MDD 4 PRN Reason: Pain Ondansetron ODT 4 MG [Zofran Odt 4 mg] 4 mg PO Q6H PRN PRN #10 tablet PRN Reason: Nausea
[2023-03-07] MEDS ORDERED: Zofran 4 MG/2 ML VIAL ONE (17:59)
[2023-03-07] MEDS ORDERED: Hydromorphone 1 mg/ml Injection ONE ×2 (17:59→21:04)
[2023-03-07] MEDS ORDERED: Sodium Chloride 0.9% 1000 ML 1,000 ML ONE (18:00)
[2023-03-07 18:13] LABS: Absolute Neutrophil Ct (ANC) 8.45 x10^3/uL (1.4-6.9); BASOPHIL % 0.2 % (0.0-0.4); Basophil (Absolute #) 0.02 x10^3/uL (0-0.4); Eosinophil % 0.6 % (0.00-5.0); Eosinophil (Absolute #) 0.06 x10^3/uL (0-0.5); Hematocrit 38.8 % (35-47); Hemoglobin 11.7 g/dL (12.0-16.0); IMMATURE GRAN # 0.04 x10^3u/L (0.00-0.03); IMMATURE GRAN % 0.4 % (0.00-0.4); Lymphocyte (Absolute #) 0.75 x10^3/uL (1.0-4.6); Lymphocytes % 7.7 % (24.0-44.0); Mean Cell Volume 76.8 fL (78-100); Mean Corpuscular Hemoglobin 23.2 pg (26-32); Mean Corpuscular Hgb Concent. 30.2 g/dL (32-36); Mean Platelet Volume 9.3 fL (7.5-11.0); Monocyte (Absolute #) 0.41 x10^3/uL (0.0-1.3); Monocytes % 4.2 % (0.0-12.0); Neutrophil % 86.9 % (36.0-66.0); Platelet Count 266 x10^3/uL (150-450); Red Blood Count 5.05 x10^6/uL (4.1-5.4); Red Cell Distribution Width 15.8 % (11.5-14.0); White Blood Count 9.7 x10^3/uL (4.0-10.5)
[2023-03-07 18:23] LABS: ADD URINE CULTURE? YES (NO); Appearance Clear (Clear); Bacteria None Seen /HPF (None Seen); Bilirubin Small (Negative); Blood Negative (Negative); Epithelial Cells Few /HPF (None Seen); Glucose, Urine 500 mg/dL (Negative); Hyaline Casts NONE SEEN /LPF (0-2); Ketones Negative (Negative); Leukocyte Esterase Trace (Negative); Nitrite Positive (Negative); Ph 6.5 (4.6-8.0); Protein,Urine Dip Negative (Negative); RBC 0-2 /HPF (0-5); Specific Gravity 1.015 (1.005-1.030); WBC 0-2 /HPF (0-5)
[2023-03-07 18:33] LABS: ALBUMIN 4.2 g/dL (3.5-5.0); ALKALINE PHOSPHATASE 110 U/L (38-126); AMYLASE 60 U/L (30-110); BLOOD UREA NITROGEN 11 mg/dL (7-17); CHLORIDE 101 mmol/L (98-107); Calcium 9.3 mg/dL (8.4-10.2); Carbon Dioxide 30 mmol/L (22-30); EST GLOMERULAR FILTRATION RATE > 60.0 ML/MIN; Glucose 220 mg/dL (74-106); LIPASE 34 U/L (23-300); Potassium 3.9 mmol/L (3.5-5.1); SGOT/AST 26 U/L (14-36); SGPT/ALT 29 U/L (0-35); SODIUM 135 mmol/L (137-145); Total Protein 7.4 g/dL (6.3-8.2)
[2023-03-07 18:49] LABS: HCG URINE TEST NEGATIVE (NEGATIVE)
--- NOTE | 2023-03-07 19:56 | XRAY ---
CLINICAL HISTORY:pain COMPARISON:12/17/2022. TECHNIQUE:A CT scan of the abdomen and pelvis was performed without IV contrast. Coronal and sagittal reconstructive images were also obtained. FINDINGS: There is a 1.4 cm solid nodule in the right lung base. Further evaluation is advised. Abdomen: The liver is mildly enlarged, measuring 17 cm at the largest craniocaudal span. There are a few scattered calcified foci, most likely corresponding to granulomas. The portal vein, intrahepatic biliary radicals, and the bile ducts are normal. The gallbladder was surgically removed. Splenomegaly, measuring 14.5 x 7 x 10 cm. No focal abnormalities are seen. The pancreas and adrenal glands are unremarkable. The kidneys are unremarkable. They are normal in size and shape. No calculi or hydronephrosis. The ascending colon, the transverse colon, the descending colon, visualized small bowel loops are unremarkable. There is no evidence of significant enlargement of the mesenteric or retroperitoneal lymph nodes. A small fat-containing umbilical hernia was noted. Pelvis: The urinary bladder is unremarkable. The rectosigmoid colon is unremarkable. Both ovaries appear enlarged, measuring the right one 3 x 3.2 x 3 cm, and the left one 3.2 x 3.1 x 3.0 cm. Further evaluation is advised. Atheromatous calcifications in the aorta and iliac arteries, findings to be considered for the age of the patient. No evidence of pelvic lymphadenopathy. The osseous structures in the pelvis, lower rib cage, and lumbar spine show no abnormality. No lytic or sclerotic bone lesions. IMPRESSION: 1. A 1.4 cm solid nodule in the right lung base. Further evaluation with contrast-enhanced chest CT is recommended. 2. Bilateral enlarged ovaries. Further evaluation with the pelvis US is advised. 3. Mild hepatomegaly, measuring up to 17 cm. 4. Splenomegaly, measuring 14.5 x 7 x 10 cm. 5. Vascular calcifications. Clinical correlation is suggested. 6. The above findings show no significant change from the prior study. Electronically Signed by: Vikash Moore MD. (03/07/2023 18:55:14 [employer])
[2023-03-07 22:34] VITALS: BP 124/81; PULSE 83; RESP 16; O2SAT 96
--- NOTE | 2023-03-08 08:26 | XRAY ---
Indication: Pelvic pain. Enlarged ovaries on recent CT exam. Two-dimensional transvaginal pelvic sonogram performed. Comparison: None Uterus anteverted measuring 7.9 x 3.7 x 4.8 cm. No focal solid/cystic uterine mass. Endometrial stripe measures 1.2 cm. No endometrial cavity mass or fluid collection. Right ovary measures 3.6 x 2.3 x 2.7 cm and left measures 3.3 x 2.5 x 3.2 cm. Normal follicular cysts and perfusion bilaterally. Left ovary demonstrates 1.8 cm dominant cyst. No suspicious adnexal mass or free fluid. Impression: Transvaginal pelvic sonogram is negative. Comment: Preliminary report was given.
== END 2023-03-07 22:58 | disposition home or self-care (01) ==
LOC: ED 17:15
DX: R10.32 Left lower quadrant pain (principal); R11.2 Nausea with vomiting, unspecified; R30.0 Dysuria; I10 Essential (primary) hypertension; E10.9 Type 1 diabetes mellitus without complications; Z79.891 Long term (current) use of opiate analgesic; Z79.4 Long term (current) use of insulin; Z79.899 Other long term (current) drug therapy; Z28.310 Unvaccinated for COVID-19
CPT/HCPCS: 36000; 36415; 74176; 76830; 80053; 81001; 81025; 82150; 83605; 83690; 85025; 87086; 96360; 96374; 96375; 99284; J1170; J2405

== ENCOUNTER 2023-03-08 17:30 | Emergency (ER) | payer OTHER ==
[2023-03-08] MEDS ORDERED: XYLOCAINE 1% HCL 20 ML MDV IJ ONE (17:31)
[2023-03-08 17:48] VITALS: BP 177/97; PULSE 102; RESP 20; TEMP 98.2; O2SAT 98
--- NOTE | 2023-03-08 18:24 | ERPHSYRPT ---
- History of Present Illness Time Seen by Provider: 03/08/23 18:24 Historian: patient Exam Limitations: no limitations Patient Subjective Stated Complaint: pt reports abdominal pain and vomiting for a couple days, states she was seen at this ED last evening and treated for UTI/abd pain with zofran and norco, she was previously taking macrobid for a diagnosed UTI at a different facility, pt states that her s/s have not improved and she is still vomiting and has been unable to eat today. Triage Nursing Assessment: pt is aox3, pupils perrl, afebrile, resps easy and non labored, cap refill < 3 seconds, radial pulses strong and equal, abd soft, tender to lower quads, bowel sounds present and normoactive. pt skin pink warm dry. Physician History: The patient presents with persistent pain in the lower abdomen and lower back, despite having been diagnosed with a urinary tract infection (UTI) and receiving treatment. The patient has been taking Wallace for pain relief, but reports that these medications have not been effective in alleviating the pain. The patient has been on the antibiotic Macrobid for two days, with a seven-day supply prescribed. The patient has not yet received any results from a previously cond ucted culture test. The patient has a history of allergies to penicillin and erythromycin but has taken Keflex before without any issues. The patient also reports an inability to tolerate Toradol due to severe stomach pain and vomiting when taking the medication. The patient's pain is located in the lower abdomen and lower back, and has not improved with the current treatment regimen. The patient is seeking relief from the pain and is concerned about the lack of improvement in their condition. Timing/Duration: day(s) (3), worse Activities at Onset: rest Quality: sharpness, stabbing Abdominal Pain Onset Location: generalized abdomen Pain Radiation: no radiation Severity of Pain-Max: severe Severity of Pain-Current: severe Modifying Factors: Improves With: nothing. Worsens With: movement, palpation Associated Symptoms: loss of appetite, nausea, vomiting, No chest pain, No diarrhea, No fever/chills, No headache, No heartburn, No neck pain Previous symptoms: same symptoms as today Allergies/Adverse Reactions: clindamycin Allergy (Mild, Verified 03/08/23 17:47) Blisters erythromycin base [Erythromycin Base] Allergy (Verified 03/08/23 17:47) Blisters ketorolac [From Toradol] Allergy (Verified 03/08/23 17:47) Lightheadedness Penicillins Allergy (Verified 03/08/23 17:47) Hives Home Medications: Lisinopril 10 mg [Zestril 10 MG] 20 mg PO DAILY 08/07/13 [History] Insulin Lispro [Admelog Solostar] 38 units SQ TIDWMEALS 09/26/21 [History] Insulin Degludec [Tresiba Flextouch U-200] 90 units SQ BID 12/17/22 [History] Amlodipine Besylate 5 mg [Norvasc 5 mg] 5 mg PO DAILY 03/07/23 [History] Atorvastatin Calcium 20 mg PO HS 03/07/23 [History] Tramadol HCl 50 mg [Ultram 50 mg] 50 mg PO DAILY 03/07/23 [History] Hx Tetanus, Diphtheria Vaccination/Date Given: Yes Hx Influenza Vaccination/Date Given: No Hx Pneumococcal Vaccination/Date Given: No Immunizations Up to Date: Yes Travel Risk - International Travel Have you traveled outside of the country in past 3 weeks: No - Coronavirus Screening Are you exhibiting any of the following symptoms?: No Close contact with a COVID-19 positive Pt in past 14-21 Days: No - Vaccine Status Have you recieved a Covid-19 vaccination: No - Review of Systems All Other Systems: Reviewed and Negative (As per HPI) - Past Medical History Pertinent Past Medical History: Yes Neurological History: No Pertinent History ENT History: No Pertinent History Cardiac History: Hypertension Respiratory History: No Pertinent History Endocrine Medical History: Diabetes Type I Musculoskeletal History: No Pertinent History GI Medical History: Gallbladder Disease, Other History: No Pertinent History Psycho-Social History: No Pertinent History Female Reproductive Disorders: No Pertinent History Other Medical History: celiac - Past Surgical History Past Surgical History: Yes Gastrointestinal: Cholecystectomy Other Surgical History: . - Social History Smoking Status: Never smoker Exposure to second hand smoke: Yes Drug Use: none Patient Lives Alone: No - Female History Hx Last Menstrual Period: 02/22/23 Hx Now: No - Nursing Vital Signs Nursing Vital Signs: Initial Vital Signs Temperature 98.2 F 03/08/23 17:36 Pulse Rate 102 H 03/08/23 17:36 Respiratory Rate 20 03/08/23 17:36 Blood Pressure 177/97 03/08/23 17:36 O2 Sat by Pulse Oximetry 98 03/08/23 17:36 Pain Scale Pain Intensity 9 - Physical Exam SpO2: 98 Comments: General: No acute distress. Awake and conversant. Eyes: Normal conjunctiva, anicteric. Round symmetric pupils. ENT: Hearing grossly intact. No nasal discharge. Neck: Neck is supple. No masses or thyromegaly. Respiratory: Respirations are non-labored. No wheezing. Abdomen: Soft, diffuse tenderness, non-distended, no rebound, no guarding, no rigidity, no CVA tenderness Skin: Warm. No rashes or ulcers. CV: RRR - Course Nursing assessment & vital signs reviewed: Yes Ordered Tests: Medication Summary Discontinued Medications Generic Name Dose Route Start Last Admin Trade Name Freq PRN Reason Stop Dose Admin Ceftriaxone Sodium 2,000 mg 03/08/23 18:31 03/08/23 19:01 Ceftriaxone Sodium 1000 Mg Inj Vial IM 03/08/23 18:32 2,000 mg STAT ONE Administration Ceftriaxone Sodium Confirm 03/08/23 18:47 Ceftriaxone Sodium 1000 Mg Inj Vial Administered 03/08/23 18:48 Dose 2,000 mg .ROUTE .STK-MED ONE Droperidol 1.25 mg 03/08/23 18:32 03/08/23 19:02 Droperidol 5 Mg/2 Ml Vial IM 03/08/23 18:33 1.25 mg STAT ONE Administration Droperidol Confirm 03/08/23 18:47 Droperidol 5 Mg/2 Ml Vial Administered 03/08/23 18:48 Dose 5 mg .ROUTE .STK-MED ONE Lidocaine HCl 4.2 ml 03/08/23 17:31 Lidocaine Hcl 1% 20 Ml Mdv 20 Ml Ml IJ 03/08/23 17:32 .STK-MED ONE - Progress Progress: improved Progress Note: SInce patient's sxs not improving I gave her 2g Ceftriaxone and switched her to Keflex for the UTI. Stop the Macrobid. Droperidol given in ED w/ some improvement. Abdominal exam remains not concerning for surgical process and CT abd/pelvis that was performed yesterday supported this. Okay to continue use of prn Wallace that was previously prescribed. Counseled pt/family regarding: diagnosis, need for follow-up Medical Desision Making - Diagnostic Testing Diagnostic test were ordered, analyzed, and reviewed by me: No - Risk of complications The pt has a mod risk of morbidity or mortality based on: Need for prescription drug management - Departure Departure Disposition: Home Clinical Impression: UTI (urinary tract infection), Abdominal pain, Nausea and vomiting Condition: Good Critical Care Time: No Referrals: LEI LONGO [Primary Care Provider] - Follow up/PCP as directed Instructions: Urinary tract infections in adults Prescriptions: Cephalexin Mh 500 mg [Keflex 500 mg] 500 mg PO TID 7 Days #21 cap Metoclopramide HCl [Reglan] 10 mg PO TID PRN #21 tablet PRN Reason: Nausea
[2023-03-08] MEDS ORDERED: Rocephin 1000 MG INJ IM ONE (18:31)
[2023-03-08] MEDS ORDERED: Rocephin 1000 MG INJ ONE (18:47)
== END 2023-03-08 19:08 | disposition home or self-care (01) ==
LOC: ED 17:30
DX: N39.0 Urinary tract infection, site not specified (principal); R10.30 Lower abdominal pain, unspecified; R11.2 Nausea with vomiting, unspecified; M54.50 Low back pain, unspecified; I10 Essential (primary) hypertension; E10.9 Type 1 diabetes mellitus without complications; Z79.891 Long term (current) use of opiate analgesic; Z79.4 Long term (current) use of insulin; Z79.899 Other long term (current) drug therapy; Z28.310 Unvaccinated for COVID-19
CPT/HCPCS: 96372; 99283; J0696

== ENCOUNTER 2025-01-25 14:06 | Emergency (ER) | payer OTHER ==
[2025-01-25 14:25] VITALS: TEMP 97.3
[2025-01-25 14:54] VITALS: PULSE 117
[2025-01-25] MEDS ORDERED: Compazine 10 MG/2 ML ONE (14:58)
[2025-01-25] MEDS ORDERED: MORPHINE SULFATE 4 MG INJ ONE (14:58)
[2025-01-25] MEDS: Compazine 10 MG/2 ML IV ONE (14:59)
[2025-01-25] MEDS: MORPHINE SULFATE 4 MG INJ IV ONE (15:00)
[2025-01-25 15:07] LABS: VBG BASE EXCESS 1.7 (-2.0-2.0); VBG CARBOXYHEMOGLOBIN 2.8 % T HGB (0.0-6.9); VBG FIO2 21.0 %; VBG HCO3- 25.8 meq/L (22-28); VBG HEMOGLOBIN 15.9; VBG O2 SATURATION 86.5 (95-100); VBG PCO2 38.0 mm/Hg (42-55); VBG PO2 52.0 mm/Hg (25-40); VBG POTASSIUM 4.7 (3.5-5.1)
[2025-01-25 15:15] LABS: BASOPHIL % 0.2 % (0.1-1.2); Basophil (Absolute #) 0.02 x10^3/uL (0.01-0.08); Eosinophil (Absolute #) 0.03 x10^3/uL (0.04-0.36); Hematocrit 43.2 % (34.1-44.9); Hemoglobin 14.8 g/dL (11.2-15.7); IMMATURE GRAN # 0.04 x10^3u/L (0.001-0.031); IMMATURE GRAN % 0.3 % (0.001-0.429); Lymphocyte (Absolute #) 0.50 x10^3/uL (1.18-3.74); Mean Corpuscular Hemoglobin 29.7 pg (25.6-32.2); Mean Corpuscular Hgb Concent. 34.3 g/dL (32.2-35.5); Monocyte (Absolute #) 0.42 x10^3/uL (0.24-0.86); NUCLEATED RBC # 0.00 x10^3u/L (0.00-0.012); NUCLEATED RBC % 0.0 % (0.00-0.2); Platelet Count 243 x10^3/uL (182-369); Red Blood Count 4.98 x10^6/uL (3.93-5.22); White Blood Count 12.4 x10^3/uL (3.98-10.04)
[2025-01-25 15:26] LABS: Calcium 10.1 mg/dL (8.4-10.2); Carbon Dioxide 22.0 mmol/L (22-30); Creatinine 1 0.58 mg/dL (0.52-1.04); EST GLOMERULAR FILTRATION RATE 118.7 ML/MIN; Glucose 365.0 mg/dL (74-106); Potassium 4.5 mmol/L (3.5-5.1); SGOT/AST 24.0 U/L (14-36); SGPT/ALT 28.0 U/L (0-35); Total Protein 7.8 g/dL (6.3-8.2)
[2025-01-25 15:35] LABS: Barbiturate,Urine NEGATIVE (NEGATIVE); Benzodiazepine,Urine NEGATIVE (NEGATIVE); Cocaine,Urine NEGATIVE (NEGATIVE); Methadone,Urine NEGATIVE (NEGATIVE); Opiate,Urine NEGATIVE (NEGATIVE); PCP,Urine NEGATIVE (NEGATIVE); THC,Urine NEGATIVE (NEGATIVE)
[2025-01-25 15:58] LABS: Amphetamine,Urine POSITIVE (NEGATIVE)
[2025-01-25 16:09] VITALS: O2SAT 100
--- NOTE | 2025-01-25 16:13 | ERPHSYRPT ---
- History of Present Illness Time Seen by Provider: 01/25/25 14:30 Patient Subjective Stated Complaint: vomiting for 5 days Triage Nursing Assessment: Pt was brought to the ER by her , hypertensive, rates pain as 8/10, pulses normal, skin n/w/d, RUQ pain that radiates around the left and to the back, denies chest pain, no difficulty breathing, N&V for 5 days, denies diarrhea, bowel sounds heard in all 4 quadrants Physician History: Presents with abdominal pain, patient was seen at [facility] twice for abdominal pain, her blood sugars have been elevated(History of diabetes(insulin controlled), , She was given medication for nausea vomiting but her abdominal pain has persisted and when her pain escalates she begins to vomit, she attempted to take her antiemetics without relief of her symptoms, on her second visit she was given Bentyl without relief of her pain, today her pain reoccurred and she developed nausea vomiting, She Denies history of inflammatory bowel disease, Past surgical history cholecystectomy Timing/Duration: day(s) (5) Quality: aching Abdominal Pain Onset Location: generalized abdomen Severity of Pain-Max: moderate Severity of Pain-Current: moderate Allergies/Adverse Reactions: clindamycin Allergy (Mild, Verified 01/25/25 14:25) Blisters erythromycin base [Erythromycin Base] Allergy (Verified 01/25/25 14:25) Blisters ketorolac [From Toradol] Allergy (Verified 01/25/25 14:25) Lightheadedness Penicillins Allergy (Verified 01/25/25 14:25) Hives Home Medications: Lisinopril 10 mg [Zestril 10 MG] 20 mg PO DAILY 08/07/13 [History] Atorvastatin Calcium 20 mg PO HS 03/07/23 [History] Acetaminophen with Codeine [Acetaminophen-Cod #3 Tablet] 1 tab PO TID PRN 01/25/25 [History] Insulin Aspart [Novolog] 20 unit SQ TIDWMEALS 01/25/25 [History] Insulin Glargine,Hum.rec.anlog [Lantus] 90 unit SQ DAILY 01/25/25 [History] Ondansetron ODT 4 MG [Zofran Odt 4 mg] 4 mg SL Q4H PRN 01/25/25 [History] Hx Tetanus, Diphtheria Vaccination/Date Given: Yes Hx Influenza Vaccination/Date Given: No Hx Pneumococcal Vaccination/Date Given: No Travel Risk - International Travel Have you traveled outside of the country in past 3 weeks: No - Emerging Infectious Disease Are you exhibiting symptoms associated with any current EIDs: Yes Symptoms: Abdominal Pain, Vomitting - Past Medical History Pertinent Past Medical History: Yes Neurological History: No Pertinent History ENT History: No Pertinent History Cardiac History: Hypertension Respiratory History: No Pertinent History Endocrine Medical History: Diabetes Type I Musculoskeletal History: No Pertinent History GI Medical History: Gallbladder Disease, Other History: No Pertinent History Psycho-Social History: No Pertinent History Female Reproductive Disorders: No Pertinent History Other Medical History: celiac - Past Surgical History Past Surgical History: Yes Gastrointestinal: Cholecystectomy Other Surgical History: . - Female History Hx Last Menstrual Period: 01/06/2025 Hx Now: No - Social History Smoking Status: Never smoker Exposure to second hand smoke: Yes Drug Use: none - Social Determinants of Health Will the patient participate in the screening: Yes Do you worry about a steady place to live?: No Do you have any problems with any of the following?: No known problems In the past 12 months,have you had to go without utilities?: No Transportation Issues: No Has anyone in your support network made you feel unsafe?: No Have you or anyone in your house had to go w/o enough food: No - Nursing Vital Signs Nursing Vital Signs: Initial Vital Signs Temperature 97.3 F 01/25/25 14:16 Pulse Rate 113 H 01/25/25 14:16 Blood Pressure 170/103 01/25/25 14:16 O2 Sat by Pulse Oximetry 100 01/25/25 14:16 Pain Scale Pain Intensity 8 - Physical Exam General Appearance: no apparent distress, alert Eye Exam: PERRL/EOMI, eyes nml inspection Ears, Nose, Throat Exam: normal ENT inspection, pharynx normal, moist mucous membranes Neck Exam: normal inspection, non-tender, supple, full range of motion Respiratory Exam: normal breath sounds, lungs clear Cardiovascular Exam: regular rate/rhythm, normal heart sounds Gastrointestinal/Abdomen Exam: soft, tenderness (diffuse), No guarding, No rebound Extremity Exam: normal inspection, normal range of motion Neurologic Exam: alert, oriented x 3, cooperative, body finisher II-XII nml as tested, normal mood/affect Skin Exam: normal color, warm, dry SpO2 Interpretation: normal SpO2: 100 Ordered Tests: Active Orders 24 hr Category Date Time Status CBC W DIFF Stat Lab 01/25/25 15:10 Completed CMP Stat Lab 01/25/25 15:10 Completed Glucose Stat Lab 01/25/25 16:39 Received LIPASE Stat Lab 01/25/25 15:10 Completed POCT GLUCOSE Stat Lab 01/25/25 16:55 Completed Urine Triage Profile Stat Lab 01/25/25 15:07 Completed VENOUS BLOOD GAS Stat Lab 01/25/25 15:05 Completed Medication Summary Discontinued Medications Generic Name Dose Route Start Last Admin Trade Name Irvingq PRN Reason Stop Dose Admin Sodium Chloride 1,000 mls @ 999 mls/hr 01/25/25 14:46 01/25/25 16:07 Sodium Chloride 0.9% 1000 Ml IV 01/25/25 15:46 Infused .Q1H1M STA Infusion Morphine Sulfate 4 mg 01/25/25 14:46 01/25/25 15:00 Morphine Sulfate 4 Mg/Ml Injection IV 01/25/25 14:47 4 mg STAT ONE Administration Prochlorperazine Edisylate 5 mg 01/25/25 14:46 01/25/25 14:59 Prochlorperazine Edisylate 10 Mg/2 Ml Vial IV 01/25/25 14:47 5 mg STAT ONE Administration Lab/Rad Data: Laboratory Result Diagrams 01/25/25 15:10 01/25/25 15:10 Laboratory Results 01/25/25 01/25/25 01/25/25 Range/Units 16:55 15:10 15:10 WBC 12.4 H (3.98-10.04) x10^3/uL RBC 4.98 (3.93-5.22) x10^6/uL Hgb 14.8 (11.2-15.7) g/dL Hct 43.2 (34.1-44.9) % MCV 86.7 (79.4-94.8) fL MCH 29.7 (25.6-32.2) pg MCHC 34.3 (32.2-35.5) g/dL RDW 14.2 (11.7-14.4) % Plt Count 243 (182-369) x10^3/uL MPV 9.5 (9.4-12.3) fL Gran % 91.9 H (34.0-71.1) % Immature Gran % (Auto) 0.3 (0.001-0.429) % Nucleat RBC Rel Count 0.0 (0.00-0.2) % Eos # (Auto) 0.03 L (0.04-0.36) x10^3/uL Immature Gran # (Auto) 0.04 H (0.001-0.031) x10^3u/L Absolute Lymphs (auto) 0.50 L (1.18-3.74) x10^3/uL Absolute Monos (auto) 0.42 (0.24-0.86) x10^3/uL Absolute Nucleated RBC 0.00 (0.00-0.012) x10^3u/L Lymphocytes % 4.0 L (19.3-51.7) % Monocytes % 3.4 L (4.7-12.5) % Eosinophils % 0.2 L (0.7-5.8) % Basophils % 0.2 (0.1-1.2) % Absolute Granulocytes 11.35 H (1.56-6.13) x10^3/uL Basophils # 0.02 (0.01-0.08) x10^3/uL pO2/FiO2 Ratio % VBG pH (7.32-7.42) VBG pCO2 at Pat Temp (42-55) mm/Hg VBG pO2 at Pat Temp (25-40) mm/Hg VBG HCO3 (22-28) meq/L VBG O2 Sat (Linda) (95-100) VBG Base Excess (-2.0-2.0) VBG Hemoglobin VBG Carboxyhemoglobin (0.0-6.9) % T HGB POC Potassium (3.5-5.1) Sodium 131 L (135-145) mmol/L Potassium 4.5 (3.5-5.1) mmol/L Chloride 98 (98-107) mmol/L Carbon Dioxide 22 (22-30) mmol/L Anion Gap 14.5 (5-15) MEQ/L BUN 10 (7-17) mg/dL Creatinine 0.58 (0.52-1.04) mg/dL Estimated GFR 118.7 ML/MIN Glucose 365 H (74-106) mg/dL POC Glucometer 326 H (74 to 106) mg/dL Calcium 10.1 (8.4-10.2) mg/dL Total Bilirubin 1.80 H (0.2-1.3) mg/dL AST 24 (14-36) U/L ALT 28 (0-35) U/L Alkaline Phosphatase 106 (38-126) U/L Serum Total Protein 7.8 (6.3-8.2) g/dL Albumin 4.4 (3.5-5.0) g/dL Lipase 39 (23-300) U/L Urine Opiates Level (NEGATIVE) Ur Methadone (NEGATIVE) Urine Barbiturates (NEGATIVE) Ur Phencyclidine (PCP) (NEGATIVE) Urine Amphetamine (NEGATIVE) U Benzodiazepine Level (NEGATIVE) Urine Cocaine (NEGATIVE) Urine Marijuana (THC) (NEGATIVE) Slides for Path Review YES 01/25/25 01/25/25 Range/Units 15:07 15:05 WBC (3.98-10.04) x10^3/uL RBC (3.93-5.22) x10^6/uL Hgb (11.2-15.7) g/dL Hct (34.1-44.9) % MCV (79.4-94.8) fL MCH (25.6-32.2) pg MCHC (32.2-35.5) g/dL RDW (11.7-14.4) % Plt Count (182-369) x10^3/uL MPV (9.4-12.3) fL Gran % (34.0-71.1) % Immature Gran % (Auto) (0.001-0.429) % Nucleat RBC Rel Count (0.00-0.2) % Eos # (Auto) (0.04-0.36) x10^3/uL Immature Gran # (Auto) (0.001-0.031) x10^3u/L Absolute Lymphs (auto) (1.18-3.74) x10^3/uL Absolute Monos (auto) (0.24-0.86) x10^3/uL Absolute Nucleated RBC (0.00-0.012) x10^3u/L Lymphocytes % (19.3-51.7) % Monocytes % (4.7-12.5) % Eosinophils % (0.7-5.8) % Basophils % (0.1-1.2) % Absolute Granulocytes (1.56-6.13) x10^3/uL Basophils # (0.01-0.08) x10^3/uL pO2/FiO2 Ratio 21.0 % VBG pH 7.44 H (7.32-7.42) VBG pCO2 at Pat Temp 38 L (42-55) mm/Hg VBG pO2 at Pat Temp 52 H (25-40) mm/Hg VBG HCO3 25.8 (22-28) meq/L VBG O2 Sat (Linda) 86.5 L (95-100) VBG Base Excess 1.7 (-2.0-2.0) VBG Hemoglobin 15.9 VBG Carboxyhemoglobin 2.8 (0.0-6.9) % T HGB POC Potassium 4.7 (3.5-5.1) Sodium (135-145) mmol/L Potassium (3.5-5.1) mmol/L Chloride (98-107) mmol/L Carbon Dioxide (22-30) mmol/L Anion Gap (5-15) MEQ/L BUN (7-17) mg/dL Creatinine (0.52-1.04) mg/dL Estimated GFR ML/MIN Glucose (74-106) mg/dL POC Glucometer (74 to 106) mg/dL Calcium (8.4-10.2) mg/dL Total Bilirubin (0.2-1.3) mg/dL AST (14-36) U/L ALT (0-35) U/L Alkaline Phosphatase (38-126) U/L Serum Total Protein (6.3-8.2) g/dL Albumin (3.5-5.0) g/dL Lipase (23-300) U/L Urine Opiates Level NEGATIVE (NEGATIVE) Ur Methadone NEGATIVE (NEGATIVE) Urine Barbiturates NEGATIVE (NEGATIVE) Ur Phencyclidine (PCP) NEGATIVE (NEGATIVE) Urine Amphetamine POSITIVE A (NEGATIVE) U Benzodiazepine Level NEGATIVE (NEGATIVE) Urine Cocaine NEGATIVE (NEGATIVE) Urine Marijuana (THC) NEGATIVE (NEGATIVE) Slides for Path Review - Progress Progress: improved Progress Note: 01/25/25 17:02 No vomiting since arrival in emergency department, pain is under control, BS rechecked and found to be 326, patient has not received any insulin today, Because she was vomiting at home she did not give herself any insulin this morning, She is comfortable going home and covering her blood sugar with her own home insulin, I recommend that she stay hydrated, She may continue taking her home pain medications which she has a prescription for Tylenol with codeine, She may also take Reglan as needed, If she is unable to tolerate solid liquid food she will return to emergency department, otherwise she will follow-up with her primary care doctor - Departure Departure Disposition: Home Clinical Impression: Hyperglycemia Abdominal pain Qualifiers: Abdominal location: generalized Qualified Code(s): R10.84 - Generalized abdominal pain Vomiting Qualifiers: Vomiting type: unspecified Nausea presence: with nausea Qualified Code(s): R 11.2 - Nausea with vomiting, unspecified Condition: Stable Critical Care Time: No Referrals: LEI LONGO [[facility] Care Provider, [facility]] - Follow Up with PCP/3 days Instructions: Abdominal pain, Type 1 diabetes - Discharge instructions, Nausea and vomiting in adults - ED discharge instructions Additional Instructions: Short acting insulin for coverage, Home pain medications as needed, follow-up to primary care doctor this week, return to emergency if you are unable to tolerate solid liquid foods
[2025-01-25 16:51] LABS: Slide Review 1 YES
[2025-01-25 17:10] VITALS: BP 168/104
== END 2025-01-25 17:14 | disposition home or self-care (01) ==
LOC: ED 14:06
DX: R10.84 Generalized abdominal pain (principal); R11.2 Nausea with vomiting, unspecified; E10.65 Type 1 diabetes mellitus with hyperglycemia; I10 Essential (primary) hypertension; Z79.899 Other long term (current) drug therapy

== ENCOUNTER 2025-04-14 14:39 | Observation (INO) | payer OTHER ==
[2025-04-14 16:00] LABS: BASOPHIL % 0.2 % (0.1-1.2); Basophil (Absolute #) 0.03 x10^3/uL (0.01-0.08); Eosinophil (Absolute #) 0 x10^3/uL (0.04-0.36); Hematocrit 48.8 % (34.1-44.9); Hemoglobin 16.7 g/dL (11.2-15.7); IMMATURE GRAN # 0.05 x10^3u/L (0.001-0.031); IMMATURE GRAN % 0.3 % (0.001-0.429); Lymphocyte (Absolute #) 0.42 x10^3/uL (1.18-3.74); Mean Corpuscular Hemoglobin 28.7 pg (25.6-32.2); Mean Corpuscular Hgb Concent. 34.2 g/dL (32.2-35.5); Monocyte (Absolute #) 0.18 x10^3/uL (0.24-0.86); NUCLEATED RBC # 0.00 x10^3u/L (0.00-0.012); NUCLEATED RBC % 0.0 % (0.00-0.2); Platelet Count 290 x10^3/uL (182-369); Red Blood Count 5.82 x10^6/uL (3.93-5.22); White Blood Count 14.8 x10^3/uL (3.98-10.04)
[2025-04-14 16:05] LABS: Calcium 10.0 mg/dL (8.4-10.2); Carbon Dioxide 20.0 mmol/L (22-30); Creatinine 1 0.57 mg/dL (0.52-1.04); EST GLOMERULAR FILTRATION RATE 119.2 ML/MIN; Glucose 325.0 mg/dL (74-106); Potassium 4.2 mmol/L (3.5-5.1); SGOT/AST 23.0 U/L (14-36); SGPT/ALT 28.0 U/L (0-35); Total Protein 8.3 g/dL (6.3-8.2)
[2025-04-14 16:08] LABS: Glucose, Urine >=1000 mg/dL (Negative); Protein,Urine Dip Negative (Negative); RBC 0-2 /HPF (0-5); WBC 0-2 /HPF (0-5)
--- NOTE | 2025-04-14 16:08 | ERPHSYRPT ---
- History of Present Illness Time Seen by Provider: 04/14/25 16:04 Historian: patient Exam Limitations: no limitations Patient Subjective Stated Complaint: pt began having abdominal pain 2 days ago and almost instantly began radiating to her left flank, pt began vomiting yesterday Triage Nursing Assessment: Pt brought to the ER by her , hypertensive, rates abdominal/back pain as 8/10, pain w/palpatation to the left flank, pulses normal, skin n/w/d, no difficulty breathing, denies chest pain, denies pain with urination, diarrhea, doesn't appear to be in any distress Physician History: Patient is a 39-year-old female current smoker history of hypertension diabetes type 1 BMI of 43.5 presents to our ED for evaluation and treatment of left periumbilical abdominal pain radiates into left flank that started 2 days ago. Pain has got progressively worse and today patient experienced nausea and vomiting.. No trauma no fever. Symptoms are progressive. Symptoms are moderate in intensity. Patient rates her pain 8 out of 10. Patient otherwise feels well. She voices no other complaints or concerns at this time. Portions of this note were created with voice recognition technology. There may be grammatical, spelling, punctuation or sound alike errors Timing/Duration: day(s) (2 days ago) Activities at Onset: none Quality: aching Abdominal Pain Onset Location: periumbilical (Periumbilical pain that radiates into the left flank) Pain Radiation: flank Severity of Pain-Max: moderate Severity of Pain-Current: mild Modifying Factors: Improves With: palpation Associated Symptoms: nausea, vomiting Previous symptoms: no prior history Allergies/Adverse Reactions: clindamycin Allergy (Mild, Verified 04/14/25 15:02) Blisters erythromycin base [Erythromycin Base] Allergy (Verified 04/14/25 15:02) Blisters ketorolac [From Toradol] Allergy (Verified 04/14/25 15:02) Lightheadedness Penicillins Allergy (Verified 04/14/25 15:02) Hives Home Medications: Lisinopril 10 mg [Zestril 10 MG] 40 mg PO DAILY 08/07/13 [History] Atorvastatin Calcium 20 mg PO HS 03/07/23 [History] Acetaminophen with Codeine [Acetaminophen-Cod #3 Tablet] 1 tab PO TID PRN 01/25/25 [History] Insulin Aspart [Novolog] 20 unit SQ TIDWMEALS 01/25/25 [History] Insulin Glargine,Hum.rec.anlog [Lantus] 90 unit SQ DAILY 01/25/25 [History] Ondansetron ODT 4 MG [Zofran Odt 4 mg] 4 mg SL Q4H PRN 01/25/25 [History] Hx Tetanus, Diphtheria Vaccination/Date Given: Yes Hx Influenza Vaccination/Date Given: No Hx Pneumococcal Vaccination/Date Given: No Travel Risk - International Travel Have you traveled outside of the country in past 3 weeks: No - Emerging Infectious Disease Are you exhibiting symptoms associated with any current EIDs: Yes Symptoms: Abdominal Pain, Vomitting - Review of Systems All Other Systems: Reviewed and Negative - Past Medical History Pertinent Past Medical History: Yes Neurological History: No Pertinent History ENT History: No Pertinent History Cardiac History: Hypertension Respiratory History: No Pertinent History Endocrine Medical History: Diabetes Type I Musculoskeletal History: No Pertinent History GI Medical History: Gallbladder Disease, Other History: No Pertinent History Psycho-Social History: No Pertinent History Female Reproductive Disorders: No Pertinent History Other Medical History: celiac - Past Surgical History Past Surgical History: Yes Gastrointestinal: Cholecystectomy Other Surgical History: . - Female History Hx Last Menstrual Period: 03/17/2025 Hx Now: No - Social History Smoking Status: Current every day smoker How long have you smoked: vapes Exposure to second hand smoke: Yes Drug Use: none - Social Determinants of Health Will the patient participate in the screening: Yes Do you worry about a steady place to live?: No Do you have any problems with any of the following?: No known problems In the past 12 months,have you had to go without utilities?: No Transportation Issues: No Has anyone in your support network made you feel unsafe?: No Have you or anyone in your house had to go w/o enough food: No - Nursing Vital Signs Nursing Vital Signs: Initial Vital Signs Temperature 97.5 F 04/14/25 15:01 Pulse Rate 100 H 04/14/25 15:01 Blood Pressure 191/104 04/14/25 15:01 O2 Sat by Pulse Oximetry 98 04/14/25 15:01 Pain Scale Pain Intensity 8 - Physical Exam General Appearance: no apparent distress, alert Eye Exam: PERRL/EOMI, eyes nml inspection Ears, Nose, Throat Exam: normal ENT inspection, pharynx normal, moist mucous membranes Neck Exam: normal inspection, full range of motion Respiratory Exam: normal breath sounds, lungs clear, airway intact, No respiratory distress Cardiovascular Exam: regular rate/rhythm, normal heart sounds Gastrointestinal/Abdomen Exam: soft, tenderness (Tenderness to palpation left periumbilical area into the left flank), No mass Back Exam: normal inspection, normal range of motion, No CVA tenderness, No vertebral tenderness Extremity Exam: normal inspection, normal range of motion, pelvis stable Neurologic Exam: alert, oriented x 3, cooperative, normal mood/affect, sensation nml, No motor deficits Skin Exam: normal color, warm, dry Lymphatic Exam: No adenopathy SpO2 Interpretation: normal SpO2: 98 O2 Delivery: Room Air - Course Nursing assessment & vital signs reviewed: Yes - CT Exams Abdomen/Pelvis CT Interpretation: Tele-radiologist Report (Lung granuloma, enteritis, right ovarian cyst, 1.8 cm splenic cyst) Ordered Tests: Active Orders 24 hr Category Date Time Status IV Insertion STAT Care 04/14/25 15:49 Active ABDOMEN AND PELVIS W/0 CONTRAS [CT] Stat Exams 04/14/25 15:49 Completed CBC W DIFF Stat Lab 04/14/25 16:00 Completed CMP Stat Lab 04/14/25 16:00 Completed TROPONIN Q4H Lab 04/14/25 16:00 Completed TROPONIN Q4H Lab 04/14/25 20:00 Ordered TROPONIN Q4H Lab 04/15/25 00:00 Ordered UA W/RFX UR CULTURE Stat Lab 04/14/25 15:55 Completed Transfer Order Routine Transfer 04/14/25 Ordered Medication Summary Generic Name Dose Route Start Last Admin Trade Name Freq PRN Reason Stop Dose Admin Sodium Chloride 1,000 mls @ 100 mls/hr 04/14/25 16:00 04/14/25 16:22 Sodium Chloride 0.9% 1000 Ml IV 05/14/25 15:59 100 mls/hr .Q10H SHELIA Administration Discontinued Medications Generic Name Dose Route Start Last Admin Trade Name Freq PRN Reason Stop Dose Admin Morphine Sulfate 4 mg 04/14/25 15:49 04/14/25 16:23 Morphine Sulfate 4 Mg/Ml Injection IV 04/14/25 15:50 4 mg STAT ONE Administration Morphine Sulfate Confirm 04/14/25 16:20 Morphine Sulfate 4 Mg/Ml Injection Administered 04/14/25 16:21 Dose 4 mg .ROUTE .STK-MED ONE Ondansetron HCl 4 mg 04/14/25 15:49 04/14/25 16:22 Ondansetron Hcl 4 Mg/2 Ml Vial IV 04/14/25 15:50 4 mg STAT ONE Administration Ondansetron HCl Confirm 04/14/25 16:20 Ondansetron Hcl 4 Mg/2 Ml Vial Administered 04/14/25 16:21 Dose 4 mg .ROUTE .STK-MED ONE Pantoprazole Sodium 40 mg 04/14/25 15:49 04/14/25 16:22 Pantoprazole 40 Mg Vial IV 04/14/25 15:50 40 mg STAT ONE Administration Pantoprazole Sodium Confirm 04/14/25 16:20 Pantoprazole 40 Mg Vial Administered 04/14/25 16:21 Dose 40 mg IV .STK-MED ONE Lab/Rad Data: Laboratory Result Diagrams 04/14/25 16:00 04/14/25 16:00 Laboratory Results 04/14/25 04/14/25 04/14/25 Range/Units 16:00 16:00 16:00 WBC 14.8 H (3.98-10.04) x10^3/uL RBC 5.82 H (3.93-5.22) x10^6/uL Hgb 16.7 H (11.2-15.7) g/dL Hct 48.8 H (34.1-44.9) % MCV 83.8 (79.4-94.8) fL MCH 28.7 (25.6-32.2) pg MCHC 34.2 (32.2-35.5) g/dL RDW 13.4 (11.7-14.4) % Plt Count 290 (182-369) x10^3/uL MPV 9.5 (9.4-12.3) fL Gran % 95.5 H (34.0-71.1) % Immature Gran % (Auto) 0.3 (0.001-0.429) % Nucleat RBC Rel Count 0.0 (0.00-0.2) % Eos # (Auto) 0 L (0.04-0.36) x10^3/uL Immature Gran # (Auto) 0.05 H (0.001-0.031) x10^3u/L Absolute Lymphs (auto) 0.42 L (1.18-3.74) x10^3/uL Absolute Monos (auto) 0.18 L (0.24-0.86) x10^3/uL Absolute Nucleated RBC 0.00 (0.00-0.012) x10^3u/L Lymphocytes % 2.8 L (19.3-51.7) % Monocytes % 1.2 L (4.7-12.5) % Eosinophils % 0.0 L (0.7-5.8) % Basophils % 0.2 (0.1-1.2) % Absolute Granulocytes 14.12 H (1.56-6.13) x10^3/uL Basophils # 0.03 (0.01-0.08) x10^3/uL Sodium 132 L (135-145) mmol/L Potassium 4.2 (3.5-5.1) mmol/L Chloride 97 L (98-107) mmol/L Carbon Dioxide 20 L (22-30) mmol/L Anion Gap 19.0 H (5-15) MEQ/L BUN 10 (7-17) mg/dL Creatinine 0.57 (0.52-1.04) mg/dL Estimated GFR 119.2 ML/MIN Glucose 325 H (74-106) mg/dL Calcium 10.0 (8.4-10.2) mg/dL Total Bilirubin 1.30 (0.2-1.3) mg/dL AST 23 (14-36) U/L ALT 28 (0-35) U/L Alkaline Phosphatase 116 (38-126) U/L Troponin I < 0.012 (0.000-0.033) ng/mL Serum Total Protein 8.3 H (6.3-8.2) g/dL Albumin 4.8 (3.5-5.0) g/dL Urine Color (Yellow) Urine Appearance (Clear) Urine pH (4.6-8.0) Ur Specific [place] (1.005-1.030) Urine Protein (Negative) Urine Glucose (UA) (Negative) mg/dL Urine Ketones (Negative) Urine Blood (Negative) Urine Nitrite (Negative) Urine Bilirubin (Negative) Urine Urobilinogen (0.2) mg/dL Ur Leukocyte Esterase (Negative) U Hyaline Cast (Auto) (0-2) /LPF Urine Microscopic RBC (0-5) /HPF Urine Microscopic WBC (0-5) /HPF Ur Epithelial Cells (None Seen) /HPF Urine Bacteria (None Seen) /HPF Urine Culture Reflexed (NO) 04/14/25 Range/Units 15:55 WBC (3.98-10.04) x10^3/uL RBC (3.93-5.22) x10^6/uL Hgb (11.2-15.7) g/dL Hct (34.1-44.9) % MCV (79.4-94.8) fL MCH (25.6-32.2) pg MCHC (32.2-35.5) g/dL RDW (11.7-14.4) % Plt Count (182-369) x10^3/uL MPV (9.4-12.3) fL Gran % (34.0-71.1) % Immature Gran % (Auto) (0.001-0.429) % Nucleat RBC Rel Count (0.00-0.2) % Eos # (Auto) (0.04-0.36) x10^3/uL Immature Gran # (Auto) (0.001-0.031) x10^3u/L Absolute Lymphs (auto) (1.18-3.74) x10^3/uL Absolute Monos (auto) (0.24-0.86) x10^3/uL Absolute Nucleated RBC (0.00-0.012) x10^3u/L Lymphocytes % (19.3-51.7) % Monocytes % (4.7-12.5) % Eosinophils % (0.7-5.8) % Basophils % (0.1-1.2) % Absolute Granulocytes (1.56-6.13) x10^3/uL Basophils # (0.01-0.08) x10^3/uL Sodium (135-145) mmol/L Potassium (3.5-5.1) mmol/L Chloride (98-107) mmol/L Carbon Dioxide (22-30) mmol/L Anion Gap (5-15) MEQ/L BUN (7-17) mg/dL Creatinine (0.52-1.04) mg/dL Estimated GFR ML/MIN Glucose (74-106) mg/dL Calcium (8.4-10.2) mg/dL Total Bilirubin (0.2-1.3) mg/dL AST (14-36) U/L ALT (0-35) U/L Alkaline Phosphatase (38-126) U/L Troponin I (0.000-0.033) ng/mL Serum Total Protein (6.3-8.2) g/dL Albumin (3.5-5.0) g/dL Urine Color Yellow (Yellow) Urine Appearance Clear (Clear) Urine pH 5.0 (4.6-8.0) Ur Specific [place] >=1.030 A (1.005-1.030) Urine Protein Negative (Negative) Urine Glucose (UA) >=1000 A (Negative) mg/dL Urine Ketones >=160 A (Negative) Urine Blood Negative (Negative) Urine Nitrite Negative (Negative) Urine Bilirubin Negative (Negative) Urine Urobilinogen 0.2 (0.2) mg/dL Ur Leukocyte Esterase Negative (Negative) U Hyaline Cast (Auto) 3-5 A (0-2) /LPF Urine Microscopic RBC 0-2 (0-5) /HPF Urine Microscopic WBC 0-2 (0-5) /HPF Ur Epithelial Cells Rare (None Seen) /HPF Urine Bacteria None Seen (None Seen) /HPF Urine Culture Reflexed NO (NO) - Progress Progress: improved Progress Note: Patient is a 39-year-old female current smoker history of hypertension diabetes type 1 BMI of 43.5 presents to our ED for evaluation and treatment of left periumbilical abdominal pain radiates into left flank that started 2 days ago. Pain has got progressively worse and today patient experienced nausea and vomiting.. No trauma no fever. Periumbilical tenderness to palpation radiating to left flank. Overlying soft tissue intact. No signs of trauma. Laboratory workup reveals a leukocytosis of 14.8 patient has a polycythemia 16.7. BUN/creatinine ratio of 20. Elevated urine specific gravity. Glucosuria observed. CT scan reveals a circumferential enteritis right ovarian cyst and a 1.8 cm splenic cyst. Patient reassessed. She continues to experience significant pain and nausea. Additional pain medication ordered to treat her symptoms. Patient will require hospitalization for further evaluation and treatment. Case discussed with hospitalist accepts admission to observation at 5:47 PM. Plan of care discussed with patient. She agrees to admission at [facility] for further evaluation and treatment. History obtained from patient and at bedside. [place] diagnosis includes enteritis, colitis, diverticulitis, Complexity of problems addressed is moderate acute complicated. No critical care time. Complexity of data reviewed and analyzed is extensive. Test ordered chest reviewed results analyzed and correlated clinically with history and physical exam. Management discussed with hospitalist who accepts admission to observation. Risk of complication and or risk of morbidity/mortality of patient management is high. Patient requires hospitalization for further evaluation and treatment. Vital stable. Time spent to admit patient is approximately 20 minutes. Plan of care established via shared decision making. No social determinants of health present to impede follow-up. Portions of this note were created with voice recognition technology. There may be grammatical, spelling, punctuation or sound alike errors 04/14/25 17:51 Counseled pt/family regarding: lab results, diagnosis, rad results - Departure Departure Disposition: Observation Clinical Impression: Enteritis, Nausea and vomiting, Dehydration, Right ovarian cyst, Splenic cyst, Hyperglycemia, Glucosuria, High anion gap metabolic acidosis Condition: Stable Critical Care Time: No Referrals: LEI LONGO [Primary Care Provider, [facility]] - Follow up/PCP as directed
[2025-04-14] MEDS ORDERED: MORPHINE SULFATE 4 MG INJ ONE ×2 (16:20→17:59)
[2025-04-14] MEDS ORDERED: Zofran 4 MG/2 ML VIAL ONE ×2 (16:20→17:58)
[2025-04-14] MEDS ORDERED: PROTONIX 40 MG IV IV ONE (16:20)
[2025-04-14] MEDS: Zofran 4 MG/2 ML VIAL IV ONE ×2 (16:22→18:00)
[2025-04-14] MEDS: PROTONIX 40 MG IV IV ONE (16:22)
[2025-04-14] MEDS: MORPHINE SULFATE 4 MG INJ IV ONE ×2 (16:23→18:01)
--- NOTE | 2025-04-14 17:05 | XRAY ---
Indication: Pain and vomiting. Multiple contiguous axial images obtained through the abdomen and pelvis without contrast. Comparison: March 07, 2023 Lung bases clear again with incidental small right base calcified granuloma. Heart not enlarged. Noncontrasted stomach and bowel loops appear nonobstructed. Several mid jejunal bowel loops now demonstrates mild/moderate circumferential wall thickening favoring enteritis. Normal appendix. Again a few calcified hepatic granulomas. New 5 cm right ovary cyst. Also new 1.8 cm round splenic cyst. Again cholecystectomy. No free fluid/air. Remaining liver, pancreas, spleen, adrenal glands, kidneys, ureters, bladder, and uterus are unremarkable for noncontrast exam. Again minimal scattered aortoiliac calcifications without AAA. Osseous structures intact. Impression: 1. New jejunal circumferential wall thickening favoring enteritis. 2. New 5 cm right ovary cyst. Pelvic sonogram may yield further information if clinically warranted . 3. New 1.8 cm splenic cyst. 4. Again incidental chronic findings including arteriosclerotic disease and old granulomatous disease.
[2025-04-14] MEDS ORDERED: TYLENOL 325 MG PO PRN (19:14)
--- NOTE | 2025-04-14 19:26 | PCM.HP ---
History of Present Illness - Chief Complaint Chief Complaint: Enteritis, intractable nausea vomiting Date: 04/14/25 History of Present Illness: is a 39 year old female with a history of hypertension, type 1 diabetes, and obesity who presented to the ED with nausea, vomiting, diarrhea and left periumbilical abdominal pain that radiated into left flank, which started 2 days ago. The pain had got progressively worse and today patient experienced nausea and vomiting. She denied any trauma no fever. Her ymptoms were progressive and moderate in intensity, with pain rated 8 out of 10 intensity. She stated that she had one episode of diarrhea prior to presen tation, and there was no blood in her stool. - Review of Systems Constitutional: No Symptoms Eyes: No Symptoms Ears, Nose, & Throat: No Symptoms Respiratory: No Symptoms Cardiac: No Symptoms Abdominal/Gastrointestinal: Abdominal Pain, Nausea, Vomiting, Diarrhea, Appetite Changes, No Constipation, No Hematemesis, No Hematochezia, No Melena, No Dysphagia Musculoskeletal: No Symptoms Skin: No Symptoms Neurological: No Symptoms Psychological: No Symptoms Endocrine: No Symptoms Hematologic/Lymphatic: No Symptoms Immunological/Allergic: No Symptoms All Other Systems: Reviewed and Negative Medications & Allergies Home Medications: Home Medication List Lisinopril 10 mg [Zestril 10 MG] 40 mg PO DAILY 08/07/13 [History Confirmed 04/14/25] Atorvastatin Calcium 20 mg PO HS 03/07/23 [History Confirmed 04/14/25] Insulin Aspart [Novolog] 20 unit SQ TIDWMEALS 01/25/25 [History Confirmed 04/14/25] Insulin Glargine,Hum.rec.anlog [Lantus] 90 unit SQ HS 01/25/25 [History Confirmed 04/14/25] Ondansetron ODT 4 MG [Zofran Odt 4 mg] 4 mg SL Q4H PRN 01/25/25 [History Confirmed 04/14/25] Acetaminophen with Codeine [Acetaminophen-Cod #4 Tablet] 1 each PO [id number] PRN 04/14/25 [History Confirmed 04/14/25] Allergies/Adverse Reactions: Allergies Allergy/AdvReac Type Severity Reaction Status Date / Time clindamycin Allergy Mild Blisters Verified 04/14/25 15:02 erythromycin base Allergy Blisters Verified 04/14/25 15:02 [Erythromycin Base] ketorolac [From Toradol] Allergy Lightheaded Verified 04/14/25 15:02 ness Penicillins Allergy Hives Verified 04/14/25 15:02 - Past Medical History Past Medical History: Yes Neurological History: No Pertinent History ENT History: No Pertinent History Cardiac History: Hypertension Respiratory History: No Pertinent History Endocrine Medical History: Diabetes Type I Musculoskelatal History: No Pertinent History GI Medical History: Gallbladder Disease, Other History: No Pertinent History Pyscho-Social History: No Pertinent History Reproductive Disorders: Endometriosis, Other Comment: celiac DX, PCOS - Female History Hx Last Menstrual Period: 03/17/2025 Are you now?: No - Past Surgical History Past Surgical History: Yes Neuro Surgical History: No Pertinent History Cardiac History: No Pertinent History Respiratory Surgery: No Pertinent History GI Surgical History: Cholecystectomy Genitourinary Surgical Hx: No Pertinent History Musculskeletal Surgical Hx: No Pertinent History Female Surgical History: No Pertinent History Other Surgical History: . Significant Family History: no pertinent family hx - Social History Smoking Status: Former smoker How long have you smoked: vapes Exposure to second hand smoke: Yes Alcohol: None Drug Use: none - Social Determinants of Health Will the patient participate in the screening: Yes Do you worry about a steady place to live?: No Do you have any problems with any of the following?: No known problems In the past 12 months,have you had to go without utilities?: No Have you or anyone in your house had to go without enough: No Transportation Issues: No Has anyone in your support network made you feel unsafe?: No Does the patient want assistance with any of the above?: No - Physical Exam Vital Signs: Vital Signs - 24 hr Temp Pulse Resp BP BP Pulse Ox 04/14/25 18:46 97.6 F 96 H 16 141/61 96 04/14/25 17:56 98 04/14/25 17:31 194/96 99 04/14/25 17:00 157/84 97 04/14/25 16:48 165/79 97 04/14/25 16:40 96 04/14/25 16:38 97 04/14/25 15:01 97.5 F 100 H 191/104 98 General Appearance: no apparent distress, alert, obese Neurologic Exam: alert, oriented x 3, cooperative, 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 tested, normal mood/affect, nml cerebellar function, sensation nml, No motor deficits, No sensory deficit, No disoriented, No confusion, No agitation Eye Exam: PERRL/EOMI, eyes nml inspection, No scleral icterus, No pale conjunctivae, No photophobia Ears, Nose, Throat Exam: normal ENT inspection Neck Exam: normal inspection, non-tender, supple, full range of motion, No meningismus Respiratory Exam: normal breath sounds, lungs clear, airway intact, No chest tenderness, No respiratory distress Cardiovascular Exam: regular rate/rhythm, normal heart sounds, No murmur, No friction rub, No gallop Gastrointestinal/Abdomen Exam: soft, normal bowel sounds, No tenderness, No distention, No guarding Back Exam: normal range of motion Extremity Exam: normal inspection, normal range of motion, No pedal edema, No swelling Skin Exam: normal color, No rash, No petechiae, No jaundice, No abrasion, No cyanosis Results - Labs Lab/Micro Results: Lab Results-Last 24 Hours 04/14/25 04/14/25 04/14/25 Range/Units 15:55 16:00 16:00 WBC 14.8 H (3.98-10.04) x10^3/uL RBC 5.82 H (3.93-5.22) x10^6/uL Hgb 16.7 H (11.2-15.7) g/dL Hct 48.8 H (34.1-44.9) % MCV 83.8 (79.4-94.8) fL MCH 28.7 (25.6-32.2) pg MCHC 34.2 (32.2-35.5) g/dL RDW 13.4 (11.7-14.4) % Plt Count 290 (182-369) x10^3/uL MPV 9.5 (9.4-12.3) fL Gran % 95.5 H (34.0-71.1) % Immature Gran % (Auto) 0.3 (0.001-0.429) % Nucleat RBC Rel Count 0.0 (0.00-0.2) % Eos # (Auto) 0 L (0.04-0.36) x10^3/uL Immature Gran # (Auto) 0.05 H (0.001-0.031) x10^3u/L Absolute Lymphs (auto) 0.42 L (1.18-3.74) x10^3/uL Absolute Monos (auto) 0.18 L (0.24-0.86) x10^3/uL Absolute Nucleated RBC 0.00 (0.00-0.012) x10^3u/L Lymphocytes % 2.8 L (19.3-51.7) % Monocytes % 1.2 L (4.7-12.5) % Eosinophils % 0.0 L (0.7-5.8) % Basophils % 0.2 (0.1-1.2) % Absolute Granulocytes 14.12 H (1.56-6.13) x10^3/uL Basophils # 0.03 (0.01-0.08) x10^3/uL Sodium 132 L (135-145) mmol/L Potassium 4.2 (3.5-5.1) mmol/L Chloride 97 L (98-107) mmol/L Carbon Dioxide 20 L (22-30) mmol/L Anion Gap 19.0 H (5-15) MEQ/L BUN 10 (7-17) mg/dL Creatinine 0.57 (0.52-1.04) mg/dL Estimated GFR 119.2 ML/MIN Glucose 325 H (74-106) mg/dL Calcium 10.0 (8.4-10.2) mg/dL Total Bilirubin 1.30 (0.2-1.3) mg/dL AST 23 (14-36) U/L ALT 28 (0-35) U/L Alkaline Phosphatase 116 (38-126) U/L Troponin I (0.000-0.033) ng/mL Serum Total Protein 8.3 H (6.3-8.2) g/dL Albumin 4.8 (3.5-5.0) g/dL Urine Color Yellow (Yellow) Urine Appearance Clear (Clear) Urine pH 5.0 (4.6-8.0) Ur Specific [place] >=1.030 A (1.005-1.030) Urine Protein Negative (Negative) Urine Glucose (UA) >=1000 A (Negative) mg/dL Urine Ketones >=160 A (Negative) Urine Blood Negative (Negative) Urine Nitrite Negative (Negative) Urine Bilirubin Negative (Negative) Urine Urobilinogen 0.2 (0.2) mg/dL Ur Leukocyte Esterase Negative (Negative) U Hyaline Cast (Auto) 3-5 A (0-2) /LPF Urine Microscopic RBC 0-2 (0-5) /HPF Urine Microscopic WBC 0-2 (0-5) /HPF Ur Epithelial Cells Rare (None Seen) /HPF Urine Bacteria None Seen (None Seen) /HPF Urine Culture Reflexed NO (NO) 04/14/25 Range/Units 16:00 WBC (3.98-10.04) x10^3/uL RBC (3.93-5.22) x10^6/uL Hgb (11.2-15.7) g/dL Hct (34.1-44.9) % MCV (79.4-94.8) fL MCH (25.6-32.2) pg MCHC (32.2-35.5) g/dL RDW (11.7-14.4) % Plt Count (182-369) x10^3/uL MPV (9.4-12.3) fL Gran % (34.0-71.1) % Immature Gran % (Auto) (0.001-0.429) % Nucleat RBC Rel Count (0.00-0.2) % Eos # (Auto) (0.04-0.36) x10^3/uL Immature Gran # (Auto) (0.001-0.031) x10^3u/L Absolute Lymphs (auto) (1.18-3.74) x10^3/uL Absolute Monos (auto) (0.24-0.86) x10^3/uL Absolute Nucleated RBC (0.00-0.012) x10^3u/L Lymphocytes % (19.3-51.7) % Monocytes % (4.7-12.5) % Eosinophils % (0.7-5.8) % Basophils % (0.1-1.2) % Absolute Granulocytes (1.56-6.13) x10^3/uL Basophils # (0.01-0.08) x10^3/uL Sodium (135-145) mmol/L Potassium (3.5-5.1) mmol/L Chloride (98-107) mmol/L Carbon Dioxide (22-30) mmol/L Anion Gap (5-15) MEQ/L BUN (7-17) mg/dL Creatinine (0.52-1.04) mg/dL Estimated GFR ML/MIN Glucose (74-106) mg/dL Calcium (8.4-10.2) mg/dL Total Bilirubin (0.2-1.3) mg/dL AST (14-36) U/L ALT (0-35) U/L Alkaline Phosphatase (38-126) U/L Troponin I < 0.012 (0.000-0.033) ng/mL Serum Total Protein (6.3-8.2) g/dL Albumin (3.5-5.0) g/dL Urine Color (Yellow) Urine Appearance (Clear) Urine pH (4.6-8.0) Ur Specific [place] (1.005-1.030) Urine Protein (Negative) Urine Glucose (UA) (Negative) mg/dL Urine Ketones (Negative) Urine Blood (Negative) Urine Nitrite (Negative) Urine Bilirubin (Negative) Urine Urobilinogen (0.2) mg/dL Ur Leukocyte Esterase (Negative) U Hyaline Cast (Auto) (0-2) /LPF Urine Microscopic RBC (0-5) /HPF Urine Microscopic WBC (0-5) /HPF Ur Epithelial Cells (None Seen) /HPF Urine Bacteria (None Seen) /HPF Urine Culture Reflexed (NO) - Radiology Impressions Radiology Exams & Impressions: Radiology Procedures Category Date Time Status ABDOMEN AND PELVIS W/0 CONTRAS [CT] Stat Exams 04/14/25 15:49 Completed Assessment/Plan (1) Enteritis Current Visit: Yes Status: Acute Assessment & Plan: Supportive care. IV fluids. Monitor exam. Antemetics and analgesia prn. IV PPI. Code(s): K52.9 - NONINFECTIVE GASTROENTERITIS AND COLITIS, UNSPECIFIED (2) Dehydration Current Visit: Yes Status: Acute Assessment & Plan: IV fluids. Code(s): E86.0 - DEHYDRATION (3) Diabetes type 1 Current Visit: Yes Status: Acute Assessment & Plan: Monitor sugars on ISS. At risk for DKA so will continue IV fluids. (4) Leukocytosis Current Visit: Yes Status: Acute Assessment & Plan: Likely nonspecific in the setting of enteritis. Will repeat CBC in AM for comparison. Code(s): D72.829 - ELEVATED WHITE BLOOD CELL COUNT, UNSPECIFIED (5) Ovarian cyst Current Visit: Yes Status: Acute Assessment & Plan: Incidental finding on CT. Patient informed. This can be further worked up as an outpatient by her PCP if clinically indicated. Code(s): N83.209 - UNSPECIFIED OVARIAN CYST, UNSPECIFIED SIDE Telemedicine Encounter - Telemedicine Encounter Telemedicine Encounter: "The entirety of this encounter was performed via Telemedicine" This visit was performed using real-time audio and video connection between my location and thepatients locationwith the assistance of a surrogateat the patients location. Written or verbal consent was obtained from the patient/guardian to perform this visit [email or web address]. Any patient questions regarding the telemedicine interaction were answered. Please note that this admission required 45 minutes to complete.
[2025-04-14] MEDS: MORPHINE SULFATE 2 MG INJ IV PRN (20:07)
[2025-04-14] MEDS: PROTONIX 40 MG IV IV SCH (20:07)
[2025-04-14] MEDS: Zofran 4 MG/2 ML VIAL IV PRN (20:08)
[2025-04-14] MEDS: NON-FORMULARY ITEM (Atorvastatin Calcium [Atorvastatin Calcium] 20 MG Tablet) PO SCH (21:22)
[2025-04-14] MEDS: Lantus Insulin SQ SCH (21:22)
[2025-04-14] MEDS: HUMALOG SQ PRN (21:33)
[2025-04-15 02:23] LABS: BASOPHIL % 0.3 % (0.1-1.2); Basophil (Absolute #) 0.04 x10^3/uL (0.01-0.08); Eosinophil (Absolute #) 0.03 x10^3/uL (0.04-0.36); Hematocrit 42.2 % (34.1-44.9); Hemoglobin 14.3 g/dL (11.2-15.7); IMMATURE GRAN # 0.05 x10^3u/L (0.001-0.031); IMMATURE GRAN % 0.4 % (0.001-0.429); Lymphocyte (Absolute #) 1.31 x10^3/uL (1.18-3.74); Mean Corpuscular Hemoglobin 29.0 pg (25.6-32.2); Mean Corpuscular Hgb Concent. 33.9 g/dL (32.2-35.5); Monocyte (Absolute #) 0.78 x10^3/uL (0.24-0.86); NUCLEATED RBC # 0.00 x10^3u/L (0.00-0.012); NUCLEATED RBC % 0.0 % (0.00-0.2); Platelet Count 254 x10^3/uL (182-369); Red Blood Count 4.93 x10^6/uL (3.93-5.22); White Blood Count 12.0 x10^3/uL (3.98-10.04)
[2025-04-15 02:53] LABS: Calcium 9.2 mg/dL (8.4-10.2); Carbon Dioxide 22.0 mmol/L (22-30); Creatinine 1 0.56 mg/dL (0.52-1.04); EST GLOMERULAR FILTRATION RATE 119.7 ML/MIN; Glucose 224.0 mg/dL (74-106); Potassium 3.9 mmol/L (3.5-5.1); SGOT/AST 19.0 U/L (14-36); SGPT/ALT 21.0 U/L (0-35); Total Protein 6.9 g/dL (6.3-8.2)
[2025-04-15] MEDS ORDERED: NON-FORMULARY ITEM (Insulin Aspart [Novolog] 100 UNIT/ML Vial) SQ SCH (08:00)
[2025-04-15] MEDS: HUMALOG SQ SCH (08:11)
[2025-04-15] MEDS: Zestril 20 MG PO SCH (09:19)
[2025-04-15] MEDS: Acidophilus TABLET PO SCH (09:19)
[2025-04-15] MEDS ORDERED: Zestril 10 MG PO SCH (10:00)
[2025-04-15] MEDS: Dextrose 5%-NS IV Solution 1000 ML 1,000 ML IV SCH (11:35)
[2025-04-15] MEDS: ULTRAM 50 MG PO PRN (11:39)
--- NOTE | 2025-04-15 13:22 | PCM.NOTE ---
Date and Time: 04/15/25 5419 Subjective Assessment: is a 39 year old female with a history of hypertension, type 1 diabetes, and obesity who presented to the emergency department on 04/14/25 with nausea, vomiting, diarrhea, and left periumbilical abdominal pain radiating into the left flank, which began two days prior and had progressively worsened. She described the pain as moderate in intensity, rated 8 out of 10, and reported one episode of diarrhea without blood. She denied trauma or fever. On 04/15/25, the patient was resting in bed and continued to experience intermittent abdominal pain along with nausea and vomiting. Antiemetics were continued, morphine was discontinued, and CT abdomen/pelvis revealed no acute findings. IV fluids were adjusted to normal saline with dextrose to maintain blood sugar as she has poor oral intake. Her white blood cell count improved to 12, and a probiotic was initiated for diarrhea. She is using a heating pad for pain. The patient is clinically stable and planned for discharge in the morning. - Review of Systems Constitutional: No Fever, No Chills Eyes: No Symptoms Ears, Nose, & Throat: No Symptoms Respiratory: No Cough, No Short Of Breath Cardiac: No Chest Pain, No Edema, No Syncope Abdominal/Gastrointestinal: Abdominal Pain, Nausea, Vomiting, Diarrhea, Hematemesis, Appetite Changes Genitourinary Symptoms: No Dysuria Musculoskeletal: No Back Pain, No Neck Pain Skin: No Rash Neurological: No Dizziness, No Focal Weakness, No Sensory Changes Psychological: No Symptoms Endocrine: No Symptoms Hematologic/Lymphatic: No Symptoms Immunological/Allergic: No Symptoms Objective Exam General Appearance: no apparent distress, alert, obese Neurologic Exam: alert, oriented x 3, cooperative, normal mood/affect, nml cerebellar function, sensation nml, No motor deficits Skin Exam: normal color, warm, dry Eye Exam: PERRL, EOMI, eyes nml inspection Ears, Nose, Throat Exam: normal ENT inspection, pharynx normal, moist mucous membranes Neck Exam: normal inspection, non-tender, supple, full range of motion Respiratory Exam: normal breath sounds, lungs clear, No respiratory distress Cardiovascular Exam: regular rate/rhythm, normal heart sounds Gastrointestinal/Abdomen Exam: soft, tenderness, No mass Extremity Exam: normal inspection, normal range of motion Back Exam: normal inspection, normal range of motion, No CVA tenderness, No vertebral tenderness Pelvic Exam: deferred Rectal Exam: deferred Objective Data Vital Signs: Vital Signs - 24 hr Temp Pulse Resp BP BP Pulse Ox 04/15/25 11:33 97.9 F 88 16 93/46 95 04/15/25 07:37 97.7 F 91 H 18 112/55 92 L 04/15/25 07:12 96 04/15/25 04:00 97.9 F 104 H 18 132/61 98 04/15/25 00:00 97.9 F 98 H 18 133/66 98 04/14/25 19:59 96 04/14/25 19:47 97.6 F 96 H 18 141/61 96 04/14/25 18:46 97.6 F 96 H 16 141/61 96 04/14/25 17:56 98 04/14/25 17:31 194/96 99 04/14/25 17:00 157/84 97 04/14/25 16:48 165/79 97 04/14/25 16:40 96 04/14/25 16:38 97 04/14/25 15:01 97.5 F 100 H 191/104 98 Pain Assessment - Last Documented Pain Intensity 8 Pain Scale Used 0-10 Pain Scale Intake and Output: Intake & Output 04/13/25 04/14/25 04/15/25 04/16/25 11:59 11:59 11:59 11:59 Intake Total 840 Balance 840 Weight 103.5 kg Lab Results: Lab Results-Last 24 Hours 04/14/25 04/14/25 04/14/25 Range/Units 15:55 16:00 16:00 WBC 14.8 H (3.98-10.04) x10^3/uL RBC 5.82 H (3.93-5.22) x10^6/uL Hgb 16.7 H (11.2-15.7) g/dL Hct 48.8 H (34.1-44.9) % MCV 83.8 (79.4-94.8) fL MCH 28.7 (25.6-32.2) pg MCHC 34.2 (32.2-35.5) g/dL RDW 13.4 (11.7-14.4) % Plt Count 290 (182-369) x10^3/uL MPV 9.5 (9.4-12.3) fL Gran % 95.5 H (34.0-71.1) % Immature Gran % (Auto) 0.3 (0.001-0.429) % Nucleat RBC Rel Count 0.0 (0.00-0.2) % Eos # (Auto) 0 L (0.04-0.36) x10^3/uL Immature Gran # (Auto) 0.05 H (0.001-0.031) x10^3u/L Absolute Lymphs (auto) 0.42 L (1.18-3.74) x10^3/uL Absolute Monos (auto) 0.18 L (0.24-0.86) x10^3/uL Absolute Nucleated RBC 0.00 (0.00-0.012) x10^3u/L Lymphocytes % 2.8 L (19.3-51.7) % Monocytes % 1.2 L (4.7-12.5) % Eosinophils % 0.0 L (0.7-5.8) % Basophils % 0.2 (0.1-1.2) % Absolute Granulocytes 14.12 H (1.56-6.13) x10^3/uL Basophils # 0.03 (0.01-0.08) x10^3/uL Sodium 132 L (135-145) mmol/L Potassium 4.2 (3.5-5.1) mmol/L Chloride 97 L (98-107) mmol/L Carbon Dioxide 20 L (22-30) mmol/L Anion Gap 19.0 H (5-15) MEQ/L BUN 10 (7-17) mg/dL Creatinine 0.57 (0.52-1.04) mg/dL Estimated GFR 119.2 ML/MIN Glucose 325 H (74-106) mg/dL POC Glucometer (74 to 106) mg/dL Hemoglobin A1c (4.5-6.0) % Calcium 10.0 (8.4-10.2) mg/dL Total Bilirubin 1.30 (0.2-1.3) mg/dL AST 23 (14-36) U/L ALT 28 (0-35) U/L Alkaline Phosphatase 116 (38-126) U/L Troponin I (0.000-0.033) ng/mL Serum Total Protein 8.3 H (6.3-8.2) g/dL Albumin 4.8 (3.5-5.0) g/dL Urine Color Yellow (Yellow) Urine Appearance Clear (Clear) Urine pH 5.0 (4.6-8.0) Ur Specific [place] >=1.030 A (1.005-1.030) Urine Protein Negative (Negative) Urine Glucose (UA) >=1000 A (Negative) mg/dL Urine Ketones >=160 A (Negative) Urine Blood Negative (Negative) Urine Nitrite Negative (Negative) Urine Bilirubin Negative (Negative) Urine Urobilinogen 0.2 (0.2) mg/dL Ur Leukocyte Esterase Negative (Negative) U Hyaline Cast (Auto) 3-5 A (0-2) /LPF Urine Microscopic RBC 0-2 (0-5) /HPF Urine Microscopic WBC 0-2 (0-5) /HPF Ur Epithelial Cells Rare (None Seen) /HPF Urine Bacteria None Seen (None Seen) /HPF Urine Culture Reflexed NO (NO) 04/14/25 04/14/25 04/14/25 Range/Units 16:00 21:00 21:05 WBC (3.98-10.04) x10^3/uL RBC (3.93-5.22) x10^6/uL Hgb (11.2-15.7) g/dL Hct (34.1-44.9) % MCV (79.4-94.8) fL MCH (25.6-32.2) pg MCHC (32.2-35.5) g/dL RDW (11.7-14.4) % Plt Count (182-369) x10^3/uL MPV (9.4-12.3) fL Gran % (34.0-71.1) % Immature Gran % (Auto) (0.001-0.429) % Nucleat RBC Rel Count (0.00-0.2) % Eos # (Auto) (0.04-0.36) x10^3/uL Immature Gran # (Auto) (0.001-0.031) x10^3u/L Absolute Lymphs (auto) (1.18-3.74) x10^3/uL Absolute Monos (auto) (0.24-0.86) x10^3/uL Absolute Nucleated RBC (0.00-0.012) x10^3u/L Lymphocytes % (19.3-51.7) % Monocytes % (4.7-12.5) % Eosinophils % (0.7-5.8) % Basophils % (0.1-1.2) % Absolute Granulocytes (1.56-6.13) x10^3/uL Basophils # (0.01-0.08) x10^3/uL Sodium (135-145) mmol/L Potassium (3.5-5.1) mmol/L Chloride (98-107) mmol/L Carbon Dioxide (22-30) mmol/L Anion Gap (5-15) MEQ/L BUN (7-17) mg/dL Creatinine (0.52-1.04) mg/dL Estimated GFR ML/MIN Glucose (74-106) mg/dL POC Glucometer 282 H (74 to 106) mg/dL Hemoglobin A1c (4.5-6.0) % Calcium (8.4-10.2) mg/dL Total Bilirubin (0.2-1.3) mg/dL AST (14-36) U/L ALT (0-35) U/L Alkaline Phosphatase (38-126) U/L Troponin I < 0.012 < 0.012 (0.000-0.033) ng/mL Serum Total Protein (6.3-8.2) g/dL Albumin (3.5-5.0) g/dL Urine Color (Yellow) Urine Appearance (Clear) Urine pH (4.6-8.0) Ur Specific [place] (1.005-1.030) Urine Protein (Negative) Urine Glucose (UA) (Negative) mg/dL Urine Ketones (Negative) Urine Blood (Negative) Urine Nitrite (Negative) Urine Bilirubin (Negative) Urine Urobilinogen (0.2) mg/dL Ur Leukocyte Esterase (Negative) U Hyaline Cast (Auto) (0-2) /LPF Urine Microscopic RBC (0-5) /HPF Urine Microscopic WBC (0-5) /HPF Ur Epithelial Cells (None Seen) /HPF Urine Bacteria (None Seen) /HPF Urine Culture Reflexed (NO) 04/15/25 04/15/25 04/15/25 Range/Units 02:18 02:18 02:18 WBC 12.0 H (3.98-10.04) x10^3/uL RBC 4.93 (3.93-5.22) x10^6/uL Hgb 14.3 (11.2-15.7) g/dL Hct 42.2 (34.1-44.9) % MCV 85.6 (79.4-94.8) fL MCH 29.0 (25.6-32.2) pg MCHC 33.9 (32.2-35.5) g/dL RDW 13.8 (11.7-14.4) % Plt Count 254 (182-369) x10^3/uL MPV 9.2 L (9.4-12.3) fL Gran % 81.7 H (34.0-71.1) % Immature Gran % (Auto) 0.4 (0.001-0.429) % Nucleat RBC Rel Count 0.0 (0.00-0.2) % Eos # (Auto) 0.03 L (0.04-0.36) x10^3/uL Immature Gran # (Auto) 0.05 H (0.001-0.031) x10^3u/L Absolute Lymphs (auto) 1.31 (1.18-3.74) x10^3/uL Absolute Monos (auto) 0.78 (0.24-0.86) x10^3/uL Absolute Nucleated RBC 0.00 (0.00-0.012) x10^3u/L Lymphocytes % 10.9 L (19.3-51.7) % Monocytes % 6.5 (4.7-12.5) % Eosinophils % 0.2 L (0.7-5.8) % Basophils % 0.3 (0.1-1.2) % Absolute Granulocytes 9.80 H (1.56-6.13) x10^3/uL Basophils # 0.04 (0.01-0.08) x10^3/uL Sodium 131 L (135-145) mmol/L Potassium 3.9 (3.5-5.1) mmol/L Chloride 99 (98-107) mmol/L Carbon Dioxide 22 (22-30) mmol/L Anion Gap 14.4 (5-15) MEQ/L BUN 9 (7-17) mg/dL Creatinine 0.56 (0.52-1.04) mg/dL Estimated GFR 119.7 ML/MIN Glucose 224 H (74-106) mg/dL POC Glucometer (74 to 106) mg/dL Hemoglobin A1c (4.5-6.0) % Calcium 9.2 (8.4-10.2) mg/dL Total Bilirubin 1.00 (0.2-1.3) mg/dL AST 19 (14-36) U/L ALT 21 (0-35) U/L Alkaline Phosphatase 90 (38-126) U/L Troponin I < 0.012 (0.000-0.033) ng/mL Serum Total Protein 6.9 (6.3-8.2) g/dL Albumin 3.9 (3.5-5.0) g/dL Urine Color (Yellow) Urine Appearance (Clear) Urine pH (4.6-8.0) Ur Specific [place] (1.005-1.030) Urine Protein (Negative) Urine Glucose (UA) (Negative) mg/dL Urine Ketones (Negative) Urine Blood (Negative) Urine Nitrite (Negative) Urine Bilirubin (Negative) Urine Urobilinogen (0.2) mg/dL Ur Leukocyte Esterase (Negative) U Hyaline Cast (Auto) (0-2) /LPF Urine Microscopic RBC (0-5) /HPF Urine Microscopic WBC (0-5) /HPF Ur Epithelial Cells (None Seen) /HPF Urine Bacteria (None Seen) /HPF Urine Culture Reflexed (NO) 04/15/25 04/15/25 04/15/25 Range/Units 02:18 07:05 11:16 WBC (3.98-10.04) x10^3/uL RBC (3.93-5.22) x10^6/uL Hgb (11.2-15.7) g/dL Hct (34.1-44.9) % MCV (79.4-94.8) fL MCH (25.6-32.2) pg MCHC (32.2-35.5) g/dL RDW (11.7-14.4) % Plt Count (182-369) x10^3/uL MPV (9.4-12.3) fL Gran % (34.0-71.1) % Immature Gran % (Auto) (0.001-0.429) % Nucleat RBC Rel Count (0.00-0.2) % Eos # (Auto) (0.04-0.36) x10^3/uL Immature Gran # (Auto) (0.001-0.031) x10^3u/L Absolute Lymphs (auto) (1.18-3.74) x10^3/uL Absolute Monos (auto) (0.24-0.86) x10^3/uL Absolute Nucleated RBC (0.00-0.012) x10^3u/L Lymphocytes % (19.3-51.7) % Monocytes % (4.7-12.5) % Eosinophils % (0.7-5.8) % Basophils % (0.1-1.2) % Absolute Granulocytes (1.56-6.13) x10^3/uL Basophils # (0.01-0.08) x10^3/uL Sodium (135-145) mmol/L Potassium (3.5-5.1) mmol/L Chloride (98-107) mmol/L Carbon Dioxide (22-30) mmol/L Anion Gap (5-15) MEQ/L BUN (7-17) mg/dL Creatinine (0.52-1.04) mg/dL Estimated GFR ML/MIN Glucose (74-106) mg/dL POC Glucometer 145 H 67 L (74 to 106) mg/dL Hemoglobin A1c 8.44 H (4.5-6.0) % Calcium (8.4-10.2) mg/dL Total Bilirubin (0.2-1.3) mg/dL AST (14-36) U/L ALT (0-35) U/L Alkaline Phosphatase (38-126) U/L Troponin I (0.000-0.033) ng/mL Serum Total Protein (6.3-8.2) g/dL Albumin (3.5-5.0) g/dL Urine Color (Yellow) Urine Appearance (Clear) Urine pH (4.6-8.0) Ur Specific [place] (1.005-1.030) Urine Protein (Negative) Urine Glucose (UA) (Negative) mg/dL Urine Ketones (Negative) Urine Blood (Negative) Urine Nitrite (Negative) Urine Bilirubin (Negative) Urine Urobilinogen (0.2) mg/dL Ur Leukocyte Esterase (Negative) U Hyaline Cast (Auto) (0-2) /LPF Urine Microscopic RBC (0-5) /HPF Urine Microscopic WBC (0-5) /HPF Ur Epithelial Cells (None Seen) /HPF Urine Bacteria (None Seen) /HPF Urine Culture Reflexed (NO) Radiology Exams: Radiology Procedures Category Date Time Status ABDOMEN AND PELVIS W/0 CONTRAS [CT] Stat Exams 04/14/25 15:49 Completed Medications: Medications Generic Name Dose Route Start Last Admin Trade Name Freq PRN Reason Stop Dose Admin Acetaminophen 650 mg 04/15/25 11:20 Acetaminophen 325 Mg Tablet PO 05/15/25 11:19 Q6H PRN PRN PAIN, FEVER, HEADACHE Dextrose/Sodium Chloride 1,000 mls @ 75 mls/hr 04/15/25 11:30 04/15/25 11:35 Dextrose 5%-Ns Iv Solution 1000 Ml IV 05/15/25 11:29 75 mls/hr .[id number] SHELIA Administration Insulin Glargine 90 unit 04/14/25 22:00 04/14/25 21:22 Insulin Glargine 1 Unit SQ 05/14/25 21:59 90 unit HS SHELIA Administration Insulin Human Lispro 0 unit 04/14/25 19:14 04/14/25 21:33 Insulin Lispro 1 Unit SQ 05/14/25 19:13 4 unit UD PRN Administration HYPERGLYCEMIA Insulin Human Lispro 20 unit 04/15/25 08:00 04/15/25 11:29 Insulin Lispro 1 Unit SQ 05/15/25 07:59 Not Given TIDWMEALS SHELIA Lactobacillus Acidophilus 1 tab 04/15/25 10:00 04/15/25 09:19 Lactobacillus Acidophilus 1 Tab Tablet PO 05/15/25 09:59 1 tab DAILY SHELIA Administration Lisinopril 40 mg 04/15/25 10:00 04/15/25 09:19 Lisinopril 20 Mg Tablet PO 05/15/25 09:59 40 mg DAILY SHELIA Administration Ondansetron HCl 4 mg 04/14/25 19:14 04/15/25 12:10 Ondansetron Hcl 4 Mg/2 Ml Vial IV 05/14/25 19:13 4 mg Q6H PRN PRN Administration NAUSEA/VOMITING Pantoprazole Sodium 40 mg 04/15/25 22:00 Pantoprazole 40 Mg Vial IV 05/14/25 19:29 HS SHELIA Simvastatin 20 mg 04/15/25 22:00 Simvastatin 20 Mg Tablet PO 05/15/25 21:59 HS SHELIA Tramadol HCl 50 mg 04/15/25 09:53 04/15/25 11:39 Tramadol Hcl 50 Mg Tablet PO 05/15/25 09:52 50 mg BID PRN PRN Administration PAIN Discontinued Medications Generic Name Dose Route Start Last Admin Trade Name Freq PRN Reason Stop Dose Admin Acetaminophen 325 mg 04/14/25 19:14 Acetaminophen 325 Mg Tablet PO 05/14/25 19:13 Q4H PRN PRN PAIN, FEVER, HEADACHE Sodium Chloride 1,000 mls @ 100 mls/hr 04/14/25 16:00 04/14/25 16:22 Sodium Chloride 0.9% 1000 Ml IV 05/14/25 15:59 100 mls/hr .Q10H SHELIA Administration Sodium Chloride Confirm 04/14/25 16:20 Sodium Chloride 0.9% 1000 Ml Administered 04/14/25 16:21 Dose 1,000 mls @ ud .ROUTE .STK-MED ONE Sodium Chloride 1,000 mls @ 100 mls/hr 04/14/25 19:15 04/14/25 20:08 Sodium Chloride 0.9% 1000 Ml IV 05/14/25 19:14 100 mls/hr .Q10H SHELIA Administration Morphine Sulfate 4 mg 04/14/25 15:49 04/14/25 16:23 Morphine Sulfate 4 Mg/Ml Injection IV 04/14/25 15:50 4 mg STAT ONE Administration Morphine Sulfate Confirm 04/14/25 16:20 Morphine Sulfate 4 Mg/Ml Injection Administered 04/14/25 16:21 Dose 4 mg .ROUTE .STK-MED ONE Morphine Sulfate 4 mg 04/14/25 17:54 04/14/25 18:01 Morphine Sulfate 4 Mg/Ml Injection IV 04/14/25 17:55 4 mg STAT ONE Administration Morphine Sulfate Confirm 04/14/25 17:59 Morphine Sulfate 4 Mg/Ml Injection Administered 04/14/25 18:00 Dose 4 mg .ROUTE .STK-MED ONE Morphine Sulfate 2 mg 04/14/25 19:19 04/15/25 06:18 Morphine Sulfate 2 Mg/Ml Inj IV 04/19/25 19:18 2 mg Q4H PRN PRN Administration SEVERE PAIN Non-Formulary Medication 1 each 12/05/25 19:13 Acetaminophen With Codeine [Acetaminophen-Cod #4 Tablet] PO [id number] PRN PAIN Non-Formulary Medication 20 mg 04/14/25 22:00 04/14/25 21:22 Atorvastatin Calcium [Atorvastatin Calcium] PO 05/14/25 21:59 Not Given HS SHELIA Ondansetron HCl 4 mg 04/14/25 15:49 04/14/25 16:22 Ondansetron Hcl 4 Mg/2 Ml Vial IV 04/14/25 15:50 4 mg STAT ONE Administration Ondansetron HCl Confirm 04/14/25 16:20 Ondansetron Hcl 4 Mg/2 Ml Vial Administered 04/14/25 16:21 Dose 4 mg .ROUTE .STK-MED ONE Ondansetron HCl 4 mg 04/14/25 17:54 04/14/25 18:00 Ondansetron Hcl 4 Mg/2 Ml Vial IV 04/14/25 17:55 4 mg STAT ONE Administration Ondansetron HCl Confirm 04/14/25 17:58 Ondansetron Hcl 4 Mg/2 Ml Vial Administered 04/14/25 17:59 Dose 4 mg .ROUTE .STK-MED ONE Pantoprazole Sodium 40 mg 04/14/25 15:49 04/14/25 16:22 Pantoprazole 40 Mg Vial IV 04/14/25 15:50 40 mg STAT ONE Administration Pantoprazole Sodium Confirm 04/14/25 16:20 Pantoprazole 40 Mg Vial Administered 04/14/25 16:21 Dose 40 mg IV .STK-MED ONE Pantoprazole Sodium 40 mg 04/14/25 19:30 04/14/25 20:07 Pantoprazole 40 Mg Vial IV 05/14/25 19:29 40 mg Q24H SHELIA Administration Assessment/Plan (1) Enteritis Current Visit: Yes Status: Acute Assessment & Plan: - CT abd/pelvis: 1. New jejunal circumferential wall thickening favoring enteritis. 2. New 5 cm right ovary cyst. Pelvic sonogram may yield further information if clinically warranted . 3. New 1.8 cm splenic cyst. 4. Again incidental chronic findings including arteriosclerotic disease and old granulomatous disease. - Supportive care - Pt states tylenol does nothing for her pain - Tramadol BID PRN - Morphine stopped - Probiotic - CBC, CMP reviewed - WBC 12- improved Code(s): K52.9 - NONINFECTIVE GASTROENTERITIS AND COLITIS, UNSPECIFIED (2) Nausea, vomiting, and diarrhea Current Visit: Yes Status: Acute Assessment & Plan: - Antiemetics - Stool for C-diff, and culture - CT abd pelvis reviewed and negative for acute findings - IVF - CBC, CMP reviewed Code(s): R11.2 - NAUSEA WITH VOMITING, UNSPECIFIED; R19.7 - DIARRHEA, UNSPECIFIED (3) Ovarian cyst Current Visit: No Status: Acute Assessment & Plan: - Incidental finding follow-up outpatient with CHIEF TECHNICIAN. - T-Pump heating pad Code(s): N83.209 - UNSPECIFIED OVARIAN CYST, UNSPECIFIED SIDE (4) Diabetes type 1 Current Visit: Yes Status: Chronic Qualifiers: Diabetes mellitus complication status: without complication Qualified Code(s): E10.9 - Type 1 diabetes mellitus without complications Assessment & Plan: - Accuchecks AC/HS - A1C 8.44- uncontrolled - Education provided on good glucose control to prevent terminologist health concerns - Liquid diet with diabetic features- advance as tolerated - IVF - Continue home insulin regimen - Humalog s/s (5) HTN (hypertension) Current Visit: Yes Status: Chronic Assessment & Plan: - Continue home BP med - Bp stable Code(s): I10 - ESSENTIAL (PRIMARY) HYPERTENSION (6) Dehydration Current Visit: Yes Status: Resolved Assessment & Plan: - resolved VTE: Lovenox PPI: Protonix Next of KIN: Parent- Emily Wang [phone] Code status: Full D/C plan: tomorrow Plan of care time > 45 minutes Code(s): E86.0 - DEHYDRATION
[2025-04-15] MEDS: ENOXAPARIN SODIUM SQ SCH (14:00)
[2025-04-15 16:00] VITALS: BP 123/67; PULSE 98; RESP 18; TEMP 97.8; O2SAT 96
[2025-04-15] MEDS: TYLENOL 325 MG PO PRN (16:02)
--- NOTE | 2025-04-15 17:37 | PCM.DS ---
Discharge Summary Date of Admission: 04/14/25 18:16 Date of Discharge: 04/15/25 Admitting Physician: ROXANE CH MD Primary Care Provider: LEI LONGO Allergies Allergies clindamycin Allergy (Mild, Verified 04/14/25 15:02) Blisters erythromycin base [Erythromycin Base] Allergy (Verified 04/14/25 15:02) Blisters ketorolac [From Toradol] Allergy (Verified 04/14/25 15:02) Lightheadedness Penicillins Allergy (Verified 04/14/25 15:02) [facility] Summary - Hospital Course Hospital Course: Pt signed out AMA is a 39 year old female with a history of hypertension, type 1 diabetes, and obesity who presented to the emergency department on 04/14/25 with nausea, vomiting, diarrhea, and left periumbilical abdominal pain radiating into the left flank, which began two days prior and had progressively worsened. She described the pain as moderate in intensity, rated 8 out of 10, and reported one episode of diarrhea without blood. She denied trauma or fever. On 04/15/25, the patient was resting in bed and continued to experience intermittent abdominal pain along with nausea and vomiting. Antiemetics were continued, morphine was discontinued, and CT abdomen/pelvis revealed no acute findings. IV fluids were adjusted to normal saline with dextrose to maintain blood sugar as she has poor oral intake. Her white blood cell count improved to 12, and a probiotic was initiated for diarrhea. She is using a heating pad for pain. The patient is clinically stable. *Per SELMA Andino, the patient stated that if she could not receive a medication containing codeine, she would sign out AMA. The pharmacist explained this morning that our facility does not carry any medications with codeine and has not had Tylenol with codeine available for over two years. The patient reported that she has codeine at home and plans to take her own medication upon arrival. She elected to leave against medical advice and signed the AMA form per nursing staff. - Vitals & Intake/Output Vital Signs: Vital Signs Temperature 97.8 F 04/15/25 15:57 Pulse Rate 98 H 04/15/25 15:57 Respiratory Rate 18 04/15/25 15:57 Blood Pressure 123/67 04/15/25 15:57 O2 Sat by Pulse Oximetry 96 04/15/25 15:57 Intake & Output: Intake & Output 04/13/25 04/14/25 04/15/25 04/16/25 11:59 11:59 11:59 11:59 Intake Total 840 240 Balance 840 240 Weight 103.5 kg - Lab Result Diagrams: 04/15/25 02:18 04/15/25 02:18 Lab Results-Last 24 Hrs: Lab Results-Last 24 Hours 04/14/25 04/14/25 04/15/25 Range/Units 21:00 21:05 02:18 WBC (3.98-10.04) x10^3/uL RBC (3.93-5.22) x10^6/uL Hgb (11.2-15.7) g/dL Hct (34.1-44.9) % MCV (79.4-94.8) fL MCH (25.6-32.2) pg MCHC (32.2-35.5) g/dL RDW (11.7-14.4) % Plt Count (182-369) x10^3/uL MPV (9.4-12.3) fL Gran % (34.0-71.1) % Immature Gran % (Auto) (0.001-0.429) % Nucleat RBC Rel Count (0.00-0.2) % Eos # (Auto) (0.04-0.36) x10^3/uL Immature Gran # (Auto) (0.001-0.031) x10^3u/L Absolute Lymphs (auto) (1.18-3.74) x10^3/uL Absolute Monos (auto) (0.24-0.86) x10^3/uL Absolute Nucleated RBC (0.00-0.012) x10^3u/L Lymphocytes % (19.3-51.7) % Monocytes % (4.7-12.5) % Eosinophils % (0.7-5.8) % Basophils % (0.1-1.2) % Absolute Granulocytes (1.56-6.13) x10^3/uL Basophils # (0.01-0.08) x10^3/uL Sodium (135-145) mmol/L Potassium (3.5-5.1) mmol/L Chloride (98-107) mmol/L Carbon Dioxide (22-30) mmol/L Anion Gap (5-15) MEQ/L BUN (7-17) mg/dL Creatinine (0.52-1.04) mg/dL Estimated GFR ML/MIN Glucose (74-106) mg/dL POC Glucometer 282 H (74 to 106) mg/dL Hemoglobin A1c (4.5-6.0) % Calcium (8.4-10.2) mg/dL Total Bilirubin (0.2-1.3) mg/dL AST (14-36) U/L ALT (0-35) U/L Alkaline Phosphatase (38-126) U/L Troponin I < 0.012 < 0.012 (0.000-0.033) ng/mL Serum Total Protein (6.3-8.2) g/dL Albumin (3.5-5.0) g/dL 04/15/25 04/15/25 04/15/25 Range/Units 02:18 02:18 02:18 WBC 12.0 H (3.98-10.04) x10^3/uL RBC 4.93 (3.93-5.22) x10^6/uL Hgb 14.3 (11.2-15.7) g/dL Hct 42.2 (34.1-44.9) % MCV 85.6 (79.4-94.8) fL MCH 29.0 (25.6-32.2) pg MCHC 33.9 (32.2-35.5) g/dL RDW 13.8 (11.7-14.4) % Plt Count 254 (182-369) x10^3/uL MPV 9.2 L (9.4-12.3) fL Gran % 81.7 H (34.0-71.1) % Immature Gran % (Auto) 0.4 (0.001-0.429) % Nucleat RBC Rel Count 0.0 (0.00-0.2) % Eos # (Auto) 0.03 L (0.04-0.36) x10^3/uL Immature Gran # (Auto) 0.05 H (0.001-0.031) x10^3u/L Absolute Lymphs (auto) 1.31 (1.18-3.74) x10^3/uL Absolute Monos (auto) 0.78 (0.24-0.86) x10^3/uL Absolute Nucleated RBC 0.00 (0.00-0.012) x10^3u/L Lymphocytes % 10.9 L (19.3-51.7) % Monocytes % 6.5 (4.7-12.5) % Eosinophils % 0.2 L (0.7-5.8) % Basophils % 0.3 (0.1-1.2) % Absolute Granulocytes 9.80 H (1.56-6.13) x10^3/uL Basophils # 0.04 (0.01-0.08) x10^3/uL Sodium 131 L (135-145) mmol/L Potassium 3.9 (3.5-5.1) mmol/L Chloride 99 (98-107) mmol/L Carbon Dioxide 22 (22-30) mmol/L Anion Gap 14.4 (5-15) MEQ/L BUN 9 (7-17) mg/dL Creatinine 0.56 (0.52-1.04) mg/dL Estimated GFR 119.7 ML/MIN Glucose 224 H (74-106) mg/dL POC Glucometer (74 to 106) mg/dL Hemoglobin A1c 8.44 H (4.5-6.0) % Calcium 9.2 (8.4-10.2) mg/dL Total Bilirubin 1.00 (0.2-1.3) mg/dL AST 19 (14-36) U/L ALT 21 (0-35) U/L Alkaline Phosphatase 90 (38-126) U/L Troponin I (0.000-0.033) ng/mL Serum Total Protein 6.9 (6.3-8.2) g/dL Albumin 3.9 (3.5-5.0) g/dL 04/15/25 04/15/25 04/15/25 Range/Units 07:05 11:16 13:22 WBC (3.98-10.04) x10^3/uL RBC (3.93-5.22) x10^6/uL Hgb (11.2-15.7) g/dL Hct (34.1-44.9) % MCV (79.4-94.8) fL MCH (25.6-32.2) pg MCHC (32.2-35.5) g/dL RDW (11.7-14.4) % Plt Count (182-369) x10^3/uL MPV (9.4-12.3) fL Gran % (34.0-71.1) % Immature Gran % (Auto) (0.001-0.429) % Nucleat RBC Rel Count (0.00-0.2) % Eos # (Auto) (0.04-0.36) x10^3/uL Immature Gran # (Auto) (0.001-0.031) x10^3u/L Absolute Lymphs (auto) (1.18-3.74) x10^3/uL Absolute Monos (auto) (0.24-0.86) x10^3/uL Absolute Nucleated RBC (0.00-0.012) x10^3u/L Lymphocytes % (19.3-51.7) % Monocytes % (4.7-12.5) % Eosinophils % (0.7-5.8) % Basophils % (0.1-1.2) % Absolute Granulocytes (1.56-6.13) x10^3/uL Basophils # (0.01-0.08) x10^3/uL Sodium (135-145) mmol/L Potassium (3.5-5.1) mmol/L Chloride (98-107) mmol/L Carbon Dioxide (22-30) mmol/L Anion Gap (5-15) MEQ/L BUN (7-17) mg/dL Creatinine (0.52-1.04) mg/dL Estimated GFR ML/MIN Glucose (74-106) mg/dL POC Glucometer 145 H 67 L 165 H (74 to 106) mg/dL Hemoglobin A1c (4.5-6.0) % Calcium (8.4-10.2) mg/dL Total Bilirubin (0.2-1.3) mg/dL AST (14-36) U/L ALT (0-35) U/L Alkaline Phosphatase (38-126) U/L Troponin I (0.000-0.033) ng/mL Serum Total Protein (6.3-8.2) g/dL Albumin (3.5-5.0) g/dL 04/15/25 Range/Units 15:43 WBC (3.98-10.04) x10^3/uL RBC (3.93-5.22) x10^6/uL Hgb (11.2-15.7) g/dL Hct (34.1-44.9) % MCV (79.4-94.8) fL MCH (25.6-32.2) pg MCHC (32.2-35.5) g/dL RDW (11.7-14.4) % Plt Count (182-369) x10^3/uL MPV (9.4-12.3) fL Gran % (34.0-71.1) % Immature Gran % (Auto) (0.001-0.429) % Nucleat RBC Rel Count (0.00-0.2) % Eos # (Auto) (0.04-0.36) x10^3/uL Immature Gran # (Auto) (0.001-0.031) x10^3u/L Absolute Lymphs (auto) (1.18-3.74) x10^3/uL Absolute Monos (auto) (0.24-0.86) x10^3/uL Absolute Nucleated RBC (0.00-0.012) x10^3u/L Lymphocytes % (19.3-51.7) % Monocytes % (4.7-12.5) % Eosinophils % (0.7-5.8) % Basophils % (0.1-1.2) % Absolute Granulocytes (1.56-6.13) x10^3/uL Basophils # (0.01-0.08) x10^3/uL Sodium (135-145) mmol/L Potassium (3.5-5.1) mmol/L Chloride (98-107) mmol/L Carbon Dioxide (22-30) mmol/L Anion Gap (5-15) MEQ/L BUN (7-17) mg/dL Creatinine (0.52-1.04) mg/dL Estimated GFR ML/MIN Glucose (74-106) mg/dL POC Glucometer 205 H (74 to 106) mg/dL Hemoglobin A1c (4.5-6.0) % Calcium (8.4-10.2) mg/dL Total Bilirubin (0.2-1.3) mg/dL AST (14-36) U/L ALT (0-35) U/L Alkaline Phosphatase (38-126) U/L Troponin I (0.000-0.033) ng/mL Serum Total Protein (6.3-8.2) g/dL Albumin (3.5-5.0) g/dL Micro Results-Entire Visit: Accuchecks Date 04/15/25 Date 04/15/25 Date 04/15/25 Time 15:59 Time 11:32 Time 07:36 - Radiology Exams Ordered Rad Exams-Entire Visit: Radiology Procedures Category Date Time Status ABDOMEN AND PELVIS W/0 CONTRAS [CT] Stat Exams 04/14/25 15:49 Completed Discharge Exam General Appearance: no apparent distress, alert, obese Neurologic Exam: alert, oriented x 3, cooperative, normal mood/affect, nml cerebellar function, sensation nml, No motor deficits Eye Exam: PERRL, EOMI, eyes nml inspection Ears, Nose, Throat Exam: normal ENT inspection, pharynx normal, moist mucous membranes Neck Exam: normal inspection, non-tender, supple, full range of motion Respiratory Exam: normal breath sounds, lungs clear, No respiratory distress Cardiovascular Exam: regular rate/rhythm, normal heart sounds Gastrointestinal/Abdomen Exam: soft, No tenderness, No mass Pelvic Exam: deferred Rectal Exam: deferred Back Exam: normal inspection, normal range of motion, No CVA tenderness, No vertebral tenderness Extremity Exam: normal inspection, normal range of motion Skin Exam: normal color, warm, dry Final Diagnosis/Problem List - Final Discharge Diagnosis/Problem (1) Enteritis Status: Acute Code(s): K52.9 - NONINFECTIVE GASTROENTERITIS AND COLITIS, UNSPECIFIED (2) Nausea, vomiting, and diarrhea Status: Acute Code(s): R11.2 - NAUSEA WITH VOMITING, UNSPECIFIED; R19.7 - DIARRHEA, UNSPECIFIED (3) Ovarian cyst Status: Acute Code(s): N83.209 - UNSPECIFIED OVARIAN CYST, UNSPECIFIED SIDE (4) Diabetes type 1 Status: Chronic (5) HTN (hypertension) Status: Chronic Code(s): I10 - ESSENTIAL (PRIMARY) HYPERTENSION (6) Dehydration Status: Resolved Assessment & Plan: (1) Enteritis Current Visit: Yes Status: Acute Assessment & Plan: - CT abd/pelvis: 1. New jejunal circumferential wall thickening favoring enteritis. 2. New 5 cm right ovary cyst. Pelvic sonogram may yield further information if clinically warranted . 3. New 1.8 cm splenic cyst. 4. Again incidental chronic findings including arteriosclerotic disease and old granulomatous disease. - Supportive care - Pt states tylenol does nothing for her pain - Tramadol BID PRN - Morphine stopped - Probiotic - CBC, CMP reviewed - WBC 12- improved Code(s): K52.9 - NONINFECTIVE GASTROENTERITIS AND COLITIS, UNSPECIFIED (2) Nausea, vomiting, and diarrhea Current Visit: Yes Status: Acute Assessment & Plan: - Antiemetics - Stool for C-diff, and culture - CT abd pelvis reviewed and negative for acute findings - IVF - CBC, CMP reviewed Code(s): R11.2 - NAUSEA WITH VOMITING, UNSPECIFIED; R19.7 - DIARRHEA, UNSPECIFIED (3) Ovarian cyst Current Visit: No Status: Acute Assessment & Plan: - Incidental finding follow-up outpatient with [facility]. 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 - Liquid diet with diabetic features- advance as tolerated - IVF - Continue home insulin regimen - Humalog s/s (5) HTN (hypertension) Current Visit: Yes Status: Chronic Assessment & Plan: - Continue home BP med - Bp stable Code(s): I10 - ESSENTIAL (PRIMARY) HYPERTENSION (6) Dehydration Current Visit: Yes Status: Resolved Assessment & Plan: - resolved D/C plan time > 40 minutes- signed out AMA Code(s): E86.0 - DEHYDRATION - Discharge Discharge Date: 04/15/25 Disposition: Against Medical Advice Condition: Stable Prescriptions: Continue Lisinopril 10 mg [Zestril 10 MG] 40 mg PO DAILY Atorvastatin Calcium 20 mg PO HS Insulin Aspart [Novolog] 20 unit SQ TIDWMEALS Insulin Glargine,Hum.rec.anlog [Lantus] 90 unit SQ HS Ondansetron ODT 4 MG [Zofran Odt 4 mg] 4 mg SL Q4H PRN PRN Reason: Nausea Acetaminophen with Codeine [Acetaminophen-Cod #4 Tablet] 1 each PO [id number] PRN PRN Reason: Pain Follow up with: LEI LONGO [Primary Care Provider, [facility]]
[2025-04-15] MEDS ORDERED: PROTONIX 40 MG IV IV SCH (22:00)
[2025-04-15] MEDS ORDERED: ZOCOR 20MG PO SCH (22:00)
== END 2025-04-15 16:27 | disposition left against medical advice (07) ==
LOC: ED 14:39 → MED SURG 18:16
PROVIDERS: ADMIT Internal Medicine; ATTEND Internal Medicine
DX: K52.9 Noninfective gastroenteritis and colitis, unspecified (principal); R11.2 Nausea with vomiting, unspecified; N83.209 Unspecified ovarian cyst, unspecified side; E10.9 Type 1 diabetes mellitus without complications; I10 Essential (primary) hypertension; E86.0 Dehydration; Z79.899 Other long term (current) drug therapy
CPT/HCPCS: 36415; 74176; 80053; 81001; 82947; 83036; 84484; 85025; 93268; 94760; 94762; 96374; 96375; 96376; 99285; G0378; Q3014